=== PATIENT | male | born 1940 | race Caucasian/White ===

== ENCOUNTER 2019-12-12 10:15 | Outpatient (RCR) | payer MEDICARE, OTHER, SELFPAY ==
[2019-12-12 11:07] LABS: Anion Gap 15.2 (5-19); Blood Urea Nitrogen 11 mg/dL (8-23); Calcium 9.6 mg/Dl (8.8-10.2); Carbon Dioxide 27 mmol/L (22-29); Chloride 100 mmol/L (98-107); Digoxin 0.8 ng/mL (0.6-1.2); Glucose 85 mg/dL (74-106); Potassium 4.2 mmol/L (3.5-5.1); Sodium 138 mmol/L (136-145)
[2019-12-12 11:30] LABS: Basophils % 0.8 %; Eosinophils # 0.2 10^3/uL (0.0-0.8); Eosinophils % 3.8 %; Hematocrit 38.4 % (42.0-52.0); Hemoglobin 12.9 g/dL (11.7-16.6); Lymphocytes # 1.3 10^3/uL (0.8-4.8); Lymphocytes % 25.3 %; Mean Corpuscular HGB Conc 33.6 g/dL (30.0-36.0); Mean Corpuscular Hemoglobin 37.1 pg (28.0-34.0); Mean Corpuscular Volume 110.3 fL (80-94); Mean Platelet Volume 9.9 fL (7.4-10.4); Monocytes # 0.6 10^3/uL (0.2-0.9); Monocytes % 12.4 %; Neutrophils # 2.9 10^3/uL (1.8-7.7); Neutrophils % 57.5 %; Nucleated Red Blood Cells % 0 %; Platelet Count 271 10^3/cmm (130-400); Red Blood Count 3.48 10^6/uL (4.1-5.3); Red Cell Distribution Width 15.9 % (12.1-15.1)
== END 2019-12-22 23:59 | disposition home or self-care (01) ==
LOC: LAB 10:15
PROVIDERS: Family Provider Family Medicine; PCP Family Medicine; Visit Provider Dermatology
DX: Z01.89 Encounter for other specified special examinations (principal)
CPT/HCPCS: 80048; 80162; 85025

== ENCOUNTER 2021-12-09 13:18 | Outpatient (CLI) | payer MEDICARE, OTHER, SELFPAY ==
--- NOTE | 2021-12-09 13:30 | USCV_ITS ---
Divina Vijay Age: 81 Gender: M : 1940 Exam Date: 12/09/2021 13:55 Ordering Phys: Korin Robertson MD ([email or web address]) Technologist: [place] [facility] [place]: CCA DISEASE Risk Factors: Previous Vascular Surgery: Right Brachial BP: / Left Brachial BP: / Right Left Velocity (cm/s) Spectral Plaque Velocity (cm/s) Spectral Plaque Syst/Diast Broadening Syst/Diast Broadening 43.20/ 10.00 Prox CCA 63.50 / 15.90 53.00/ 11.00 Mid CCA 55.50 / 11.50 53.80/ 13.20 Distal CCA 72.30 / 13.20 76.70/ 11.50 Prox ICA 73.00 / 12.00 82.80/ 19.40 Mid ICA 65.80 / 17.90 88.10/ 27.30 Distal ICA 67.50 / 23.10 82.00 ECA 82.00 1.64 ICA/CCA 0.93 Antegrade Vertebral Antegrade 58.20/ 14.10 cm/s 41.90/ 9.40 cm/s Bi Subclavian Bi 147.5 0 FINDINGS Comparison: none available. Scattered irregular plaque in the common carotid arteries and bifurcations. No stenosis or occlusion. Antegrade vertebral arteries. CONCLUSIONS Bilateral ICA stenosis less than 50%. Dr. Nat Zacarias DO (Electronically Signed) Final Date: 09 December 2021 15:39 S
== END 2021-12-09 13:19 | disposition home or self-care (01) ==
LOC: RAD 13:21
PROVIDERS: PCP Family Medicine; Visit Provider Internal Medicine Cardiovascular Disease
DX: I65.23 Occlusion and stenosis of bilateral carotid arteries (principal)
CPT/HCPCS: 93880

== ENCOUNTER 2021-12-11 12:37 | Outpatient (CLI) | payer MEDICARE, OTHER, SELFPAY ==
--- NOTE | 2021-12-11 12:45 | USCV_ITS ---
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 Exam Location: [facility] [place] Indication: PAIN IN RIGHT LEG RIGHT LEFT Brachial 133.00 mmHg Brachial 140.00 mmHg Pressure (mmHg) Waveform Pressure (mmHg) Waveform 154.00 DPA 1.10 Ankle/Brachial Index 115.00 Pre-Exercise Toe Pressure 155.00 0.82 Pre-Exercise Toe/Brachial Index 1.11 FINDINGS RT PT >220 Normal resting JAVED on the right side Noncompressible vessels on the left side Normal resting TBI on the right side Supranormal resting TBI on the left side CONCLUSIONS Features suggestive of extensive arterial sclerosis Possibly no significant arterial obstruction based on the above findings Dr Sahil Choe MD [facility] (Electronically Signed) Final Date: 11 December 2021 19:26 S
== END 2021-12-11 12:38 | disposition home or self-care (01) ==
LOC: RAD 12:41
PROVIDERS: PCP Family Medicine; Visit Provider Internal Medicine Cardiovascular Disease
DX: M79.604 Pain in right leg (principal); M79.605 Pain in left leg
CPT/HCPCS: 93923

== ENCOUNTER 2022-02-06 19:16 | Emergency (ER) | payer MEDICARE, OTHER, SELFPAY ==
[2022-02-06 19:17] VITALS: BP 135/79; PULSE 77; RESP 18; TEMP 37.2; O2SAT 98
--- NOTE | 2022-02-06 19:27 | XRR_ITS ---
PROCEDURE INFORMATION: Exam: XR Chest Exam date and time: 02/06/2022 6:34 PM Age: 81 years old Clinical indication: Injury or trauma; Fall; Swelling (edema); Prior surgery; Surgery date: 6+ months TECHNIQUE: Imaging protocol: XR of the chest. Views: 1 view. COMPARISON: CR Chest 1 [place] [id number] 06/11/2019 2:35 PM FINDINGS: Tubes, catheters and devices: Stable surgical changes throughout the mediastinum, including a cardiac pacer system. The uppermost sternal wire appears fractured. Lungs: Hyperinflation with interstitial prominence consistent with COPD. Atelectasis at the lung bases. Pleural spaces: Mild blunting of the costophrenic angles may be scarring. No pneumothoraces. Heart/Mediastinum: There is stable cardiomegaly. The aorta is tortuous and mildly calcified. Bones/joints: The right humeral head is high-riding in the glenoid and contacts the undersurface of the acromion consistent a rotator cuff tear. There is a probable left AC separation versus resection of the distal. XR/XR chest 1V portable [id number] IMPRESSION: No acute cardiopulmonary abnormality. Possible left AC separation resection of the distal clavicle. Right rotator cuff tear.
--- NOTE | 2022-02-06 19:27 | CTR_ITS ---
PROCEDURE INFORMATION: Exam: CT Head Without Contrast Exam date and time: 02/06/2022 7:48 PM Age: 81 years old Clinical indication: Injury or trauma; Blunt trauma (contusions or hematomas); Without loss of consciousness; Patient HX: C/O DICK after 3x falls today; Additional info: Fall TECHNIQUE: Imaging protocol: Computed tomography of the head without contrast. Radiation optimization: All CT scans at this facility use at least one of these dose optimization techniques: automated exposure control; mA and/or kV adjustment per patient size (includes targeted exams where dose is matched to clinical indication); or iterative reconstruction. COMPARISON: CT head wo con* [id number] 06/11/2019 2:44 PM RADIATION DOSE METRICS: Total DLP (mGy-cm): 1035.83 FINDINGS: Brain: Age appropriate atrophy and small vessel ischemic change. No evidence of intracranial hemorrhage, mass effect, midline shift or extra-axial fluid collections. Midline structures are normal. Patel-white matter differentiation is normal. Cerebral ventricles: No ventriculomegaly. Paranasal sinuses: Mucosal thickening in the ethmoid and maxillary sinuses. Mastoid air cells: Visualized mastoid air cells are well aerated. Orbital cavities: The patient has had bilateral lens replacement surgery. Vasculature: Carotid and vertebral artery atherosclerotic calcification. Bones/joints: Unremarkable. No acute fracture. Soft tissues: Unremarkable. CT/CT head wo con* [id number] IMPRESSION: No acute intracranial injury.
--- NOTE | 2022-02-06 19:28 | ECG_ITS ---
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 Measurements Intervals [place] Rate: 71 P: -21 PA: 197 QRS: -87 QRSD: 190 T: 89 QT: 450 QTc: 491 Interpretive Statements ELECTRONIC ATRIAL PACEMAKER ELECTRONIC VENTRICULAR PACEMAKER Compared to ECG 06/11/2019 14:56:09 Atrial fibrillation no longer present Intraventricular conduction delay no longer present Electronically Signed On 02-06-2022 22:46:44 CDT by Dell Beck M.D. [id number]
--- NOTE | 2022-02-06 19:39 | ED_ITS ---
HPI - General Adult General: Chief complaint: General Medical Stated complaint: FLU/WEAKNESS/UNABLE TO STAND Time Seen by Provider: 02/06/22 19:17 History of Present Illness: Patient is an 81-year-old male with history of atrial fibrillation on apixaban, CAD s/p CABG, hypertension who presents emergency room after 3 episodes of fall. Yesterday patient was diagnosed with the flu. After he discharged home yesterday, patient says that he has had difficulty getting out of bed. Patient says that he is feeling weak and has fallen 3 times at shelter. Patient denies any chest pain, short of breath, palpitation or lightheadedness. Patient points to his head complaining of head ache. Patient also reports generalized body aches. Patient reports that he has had an ongoing cough for the last 2 weeks. Denies any active abdominal complaints, nausea/vomiting, decreased p.o. intake, diarrhea, melena medic easier. Patient has no urinary complaints. No other focal complaints at this time. Onset: 1 day Duration:ongoing Location: shelter Severity:moderate Associated symptoms: Deny chest pain, dyspnea, nausea, rash, palpitations or v omiting Review of Systems Const: Reports: other (+generalized weakness); Denies: fever(s) or chills Eyes: Denies: change in vision ENMT: Reports: other (+headache); Denies: mouth pain Card: Denies: chest pain or palpitations Resp: Denies: dyspnea or non-productive cough GI: Denies: abdominal pain, nausea, vomiting or diarrhea : Denies: dysuria Musc: Denies: extremity pain Skin/Breast: Denies: rash or new lesions Neuro: Denies: weakness in extremities Psych: Reports: other (Normal mood) Alan/Lymph: Denies: easy bruising PFS ED PFSH: Medical History (Updated 02/06/22 @ 21:05 by Abdias Ospina MD) Atrial fibrillation Benign essential tremor CAD (coronary artery disease) HTN (hypertension) Parkinson disease Presence of cardiac pacemaker Surgical History S/P CABG (coronary artery bypass graft) Family History Denies family history of Diabetes Cancer Stroke Social History Smoking and tobacco status: never smoked Alcohol intake: never Physical Exam Const: COMMON NORMALS: alert HENMT: COMMON NORMALS: atraumatic HEAD & SCALP: atraumatic MOUTH: moist mucous membranes not abnormal Eye: COMMON NORMALS: EOMs intact bilaterally and conjunctivae normal C ONJUNCTIVA: Yes conjunctivae normal Neck/C-Spine: COMMON NORMALS: full ROM and supple OTHER: no nuchal rigidity or meningismus Resp: COMMON NORMALS: normal respiratory effort and clear to auscultation bilaterally AUSCULTATION: clear to auscultation bilaterally Cardio: COMMON NORMALS: regular rate RATE: regular rate GI: COMMON NORMALS: Soft to palpation and non-tender PALPATION: Yes Soft to palpation Extremity: COMMON NORMALS: full ROM Neuro: SENSORIUM/ORIENTATION: Yes alert MOTOR EXAM: No Abnormal motor strength present and Other motor observations present (no focal motor deficits) Psych: COMMON NORMALS: speech normal SPEECH: Yes normal speech MOOD & AFFECT: Yes euthymic mood Course Vital Signs: Vital signs: Vital Signs Temperature 99.0 F 02/06/22 19:17 Pulse Rate 74 02/06/22 21:11 Respiratory Rate 20 H 02/06/22 21:11 Blood Pressure 138/78 02/06/22 21:11 Pulse Oximetry 93 02/06/22 21:11 [facility] - General Adult Medical Decision Making Patient is an 81-year-old male presenting to the emergency room with concerns for increased weakness and fall x3 episode. On exam, patient has no focal signs of trauma or bruising. Lungs appear to be clear bilaterally. CT head negative for any acute finding. X-ray is negative for any signs of focal consolidation. Patient has no white count. Afebrile today. BNP is noted to be 5K, however given the setting of CABG, it is unclear what patient's baseline is. Patient has no signs of lower extremity swelling, increased dypnsee/oxygen requirement, and x-ray chest not showing signs of CHF exacerbation. I have offered patient admission given the fact that patient is at risk for recurrent fall, generalized weawkness, the fact that he is on anticoagulation. I discussed case with patient's son Ken who also agrees with decision for admission. However patient reiterates desire to go back to shelter. Patient is AAOx3, GCS 15, with full capability for understanding everything discussed today. Patient still still elects to go home back to shelter at this time. Patient verbalized understanding of the risks which involve recurrent fall and possible brain bleed/other significant trauma. Patient still elects to go home at this time. Given new BNP elevation unknown baseline, patient's increased risk for falling and worsening weakness, we recommend inpatient hospitalization. However, at 9:35 PM, patient declined the admission. Patient elects to go home with close follow-up. Patient has nigtzk-byu-bonbo care at the shelter and would like to get IV hydration at the shelter. Given the fact the patient is on apixaban, I have instructed him to stop taking his Eliquis for 2 days until he has regained strength to be able to walk to decrease his risks of brain bleed or other injuries. I have given patient strict return precaution for any signs of strokelike symptoms since he will be off of the apixaban for 2 days until he regains his strength. Patient verbalized understanding of everything discussed today. I have attempted to reach the shelter to communicate these discussions. However we were unable to reach shelter after multiple attempts. Disposition: discharge. Lab Data : 02/06/22 19:36 02/06/22 19:36 Radiology Impressions Chest X-Ray 02/06/22 19: IMPRESSION: No acute cardiopulmonary abnormality. Possible left AC separation resection of the distal clavicle. Right rotator cuff tear. Head CT 02/06/22 19:27 IMPRESSION: No acute intracranial injury. Laboratory Results WBC 8.6 10^3/uL (4.0-10.0) 02/06/22 19:36 RBC 3.57 10^6/uL (4.1-5.3) L 02/06/22 19:36 Hgb 12.0 g/dL (11.7-16.6) 02/06/22 19:36 Hct 37.0 % (42.0-52.0) L 02/06/22 19:36 MCV 103.6 fl (80-94) H 02/06/22 19:36 MCH 33.6 pg (28.0-34.0) 02/06/22 19:36 MCHC 32.4 g/dL (30.0-36.0) 02/06/22 19:36 RDW 14.6 % (12.1-15.1) 02/06/22 19:36 Plt Count 202 10^3/cmm (130-400) 02/06/22 19:36 MPV 9.9 fL (7.4-10.4) 02/06/22 19:36 Neut % (Auto) 83.3 % 02/06/22 19:36 Lymph % (Auto) 5.6 % 02/06/22 19:36 Bond % (Auto) 9.2 % 02/06/22 19:36 Eos % (Auto) 1.1 % 02/06/22 19:36 Baso % (Auto) 0.4 % 02/06/22 19:36 Neut # (Auto) 7.15 10^3/uL (1.8-7.7) 02/06/22 19:36 Lymph # (Auto) 0.5 10^3/uL (0.8-4.8) L 02/06/22 19:36 Bond # (Auto) 0.8 10^3/uL (0.2-0.9) 02/06/22 19:36 Eos # (Auto) 0.1 10^3/uL (0.0-0.8) 02/06/22 19:36 Baso # (Auto) 0.0 10^3/uL (0.0-0.1) 02/06/22 19:36 Nucleated RBC % (auto) 0 % 02/06/22 19:36 Nucleated RBCs # 0.0 /100WBC 02/06/22 19:36 Sodium 135 mmol/L (136-145) L 02/06/22 19:36 Potassium 3.9 mmol/L (3.5-5.1) 02/06/22 19:36 Chloride 98 mmol/L (98-107) 02/06/22 19:36 Carbon Dioxide 25 mmol/L (22-29) 02/06/22 19:36 Anion Gap 15.9 (5-19) 02/06/22 19:36 BUN 13 mg/dL (8-23) 02/06/22 19:36 Creatinine 0.7 mg/dL (0.7-1.2) 02/06/22 19:36 GFR Calculation Not Reportable 02/06/22 19:36 Glucose 127 mg/dL (65-115) H 02/06/22 19:36 Calculated Osmolality 282 mOsm/kg (285-295) L 02/06/22 19:36 Calcium 9.0 mg/dL (8.5-10.5) 02/06/22 19:36 Total Bilirubin 0.9 mg/dL (0.15-1.2) 02/06/22 19:36 AST 9 U/L (0-40) 02/06/22 19:36 ALT < 5 U/L (0-41) 02/06/22 19:36 Alkaline Phosphatase 86 IU/L (40-130) 02/06/22 19:36 Troponin T Baseline 31 ng/L (0-15) H 02/06/22 19:36 Troponin T 120 Minute 31.11 ng/L (0-15) H 02/06/22 21:40 Delta Troponin T 0.11 ABS# (0-10) 02/06/22 21:40 NT-Pro-B Natriuret Pep 4702 pg/mL (0-450) H 02/06/22 19:36 Total Protein 6.7 g/dL (6.6-8.7) 02/06/22 19:36 Albumin 4.5 g/dL (3.5-5.2) 02/06/22 19:36 Globulin 2.2 g/dL (1.3-4.6) 02/06/22 19:36 Lipase 8 U/L (13-60) L 02/06/22 19:36 Imaging Data Other Imaging: Radiologist's impression: [address] [address] [address] Scan Report Signed Patient: Vijay Murcia Unit #: [id number] : 1940 Age/Sex: 81 / M ADM Date: 02/06/22 Loc: ER Room/Bed: Attending Dr: Ordering Provider/Ordering MD: Abdias Ospina MD Date of Service: 02/06/22 Procedure(s): CT head wo con* [id number] Accession Number(s): [id number] Report Number: [id number] PROCEDURE INFORMATION: Exam: CT Head Without Contrast Exam date and time: 02/06/2022 7:48 PM Age: 81 years old Clinical indication: Injury or trauma; Blunt trauma (contusions or hematomas); Without loss of consciousness; Patient HX: C/O DICK after 3x falls today; Additional info: Fall TECHNIQUE: Imaging protocol: Computed tomography of the head without contrast. Radiation optimization: All CT scans at this facility use at least one of these dose optimization techniques: automated exposure control; mA and/or kV adjustment per patient size (includes targeted exams where dose is matched to clinical indication); or iterative reconstruction. COMPARISON: CT head wo con* [id number] 06/11/2019 2:44 PM RADIATION DOSE METRICS: Total DLP (mGy-cm): 1035.83 FINDINGS: Brain: Age appropriate atrophy and small vessel ischemic change. No evidence of intracranial hemorrhage, mass effect, midline shift or extra-axial fluid collections. Midline structures are normal. Patel-white matter differentiation is normal. Cerebral ventricles: No ventriculomegaly. Paranasal sinuses: Mucosal thickening in the ethmoid and maxillary sinuses. Mastoid air cells: Visualized mastoid air cells are well aerated. Orbital cavities: The patient has had bilateral lens replacement surgery. Vasculature: Carotid and vertebral artery atherosclerotic calcification. Bones/joints: Unremarkable. No acute fracture. Soft tissues: Unremarkable. CT/CT head wo con* [id number] IMPRESSION: No acute intracranial injury. ? Dictated By: Mrak Brown MD Signed By: Mark Brown MD Signed Date/Time: 02/06/222004 DD/ 47 Discharge Plan Discharge Patient Disposition: Home Clinical Impression: Fall, Generalized weakness Condition: Stable Prescriptions: New acetaminophen 500 mg tablet 500 mg PO Q6H PRN (Reason: pain) 5 Days Qty: 20 0RF No Action senna 8.6 mg capsule 8.6 mg PO BID PRN0RF pantoprazole 40 mg tablet,delayed release (DR/EC) 40 mg PO DAILY 0RF tamsulosin 0.4 mg capsule 0.4 mg PO DAILY 0RF carbidopa-levodopa 25-100 mg tablet 1 tab PO TID 0RF duloxetine 60 mg capsule,delayed release(DR/EC) 60 mg PO DAILY 0RF oxycodone-acetaminophen 10-325 mg tablet 1 tab PO Q8H PRN0RF diltiazem HCl 180 mg capsule,extended release 24hr 180 mg PO DAILY 0RF Eliquis 2.5 mg tablet 2.5 mg PO BID 0RF gabapentin 600 mg tablet 600 mg PO BID 0RF metoprolol tartrate 25 mg tablet 25 mg PO BID 0RF digoxin 125 mcg (0.125 mg) tablet 125 mcg PO DAILY 0RF donepezil 10 mg tablet 10 mg PO DAILY 0RF atorvastatin 20 mg tablet 20 mg PO DAILY 0RF trazodone 100 mg tablet 100 mg PO DAILY 0RF primidone 50 mg tablet 200 mg PO BID 0RF melatonin 1 mg tablet 1 mg PO DAILY 0RF memantine 10 mg tablet 10 mg PO BID 0RF Discharge Orders: Discharge ED (Routine); Ordered 02/06/22 Ordered By: Abdias Ospina Referrals: Vi Murphy MD [Primary Care Provider] - Discharge Diet: Advance as tolerated Discharge Activity: Increase activity as tolerated Patient Instructions: Fall Prevention (ED), Opioid Safety Activity Restrictions/Additional Instructions: Come back to the emergency room he had a fever, decreased p.o. intake, inability tolerate p.o., or any new concerning complaints Coding Level of Care Code ED Nurse Care Manager for Ct Sarkar Exam Comprehensive
[2022-02-06 19:57] LABS: Basophils % 0.4 %; Eosinophils # 0.1 10^3/uL (0.0-0.8); Eosinophils % 1.1 %; Lymphocytes # 0.5 10^3/uL (0.8-4.8); Lymphocytes % 5.6 %; Mean Corpuscular HGB Conc 32.4 g/dL (30.0-36.0); Mean Corpuscular Hemoglobin 33.6 pg (28.0-34.0); Mean Corpuscular Volume 103.6 fl (80-94); Mean Platelet Volume 9.9 fL (7.4-10.4); Monocytes # 0.8 10^3/uL (0.2-0.9); Monocytes % 9.2 %; Neutrophils # 7.15 10^3/uL (1.8-7.7); Neutrophils % 83.3 %; Nucleated Red Blood Cells % 0 %; Platelet Count 202 10^3/cmm (130-400); Red Blood Count 3.57 10^6/uL (4.1-5.3); Red Cell Distribution Width 14.6 % (12.1-15.1); White Blood Count 8.6 10^3/uL (4.0-10.0)
[2022-02-06 20:09] LABS: Troponin(5th) Baseline 31 ng/L (0-15)
[2022-02-06 20:19] LABS: Alanine Aminotransferase < 5 U/L (0-41); Albumin Level 4.5 g/dL (3.5-5.2); Alkaline Phosphatase 86 IU/L (40-130); Anion Gap 15.9 (5-19); Aspartate Amino Transferase 9 U/L (0-40); Blood Urea Nitrogen 13 mg/dL (8-23); Carbon Dioxide 25 mmol/L (22-29); Chloride 98 mmol/L (98-107); Globulin 2.2 g/dL (1.3-4.6); Glucose 127 mg/dL (65-115); Lipase 8 U/L (13-60); NT Pro B Type Natriuretic Pept 4702 pg/mL (0-450); Osmolality Calculated 282 mOsm/kg (285-295); Potassium 3.9 mmol/L (3.5-5.1); Sodium 135 mmol/L (136-145); Total Bilirubin 0.9 mg/dL (0.15-1.2); Total Protein 6.7 g/dL (6.6-8.7)
[2022-02-06] MEDS: sodium chloride 0.9% 500 ML IV (21:06)
[2022-02-06] MEDS: acetaminophen 500 mg Tablet PO (21:06)
[2022-02-06 21:11] VITALS: BP 138/78; PULSE 74; RESP 20; O2SAT 93
[2022-02-06 22:16] LABS: Troponin 5 2HR 31.11 ng/L (0-15)
[2022-02-06 22:19] LABS: Troponin 5 2HR Delta 0.11 ABS# (0-10)
[2022-02-06 23:37] VITALS: BP 131/72; PULSE 70; RESP 17; O2SAT 91
[2022-02-07 00:48] VITALS: BP 128/73; PULSE 71; RESP 16; O2SAT 97
== END 2022-02-07 00:50 | disposition home or self-care (01) ==
PROVIDERS: Emergency Provider Emergency Medicine; PCP Family Medicine
DX: R53.1 Weakness (principal); Z79.01 Long term (current) use of anticoagulants; I25.10 Atherosclerotic heart disease of native coronary artery without angina pectoris; I10 Essential (primary) hypertension; G20 Parkinson's disease; Z95.0 Presence of cardiac pacemaker; Z95.1 Presence of aortocoronary bypass graft; W19.XXXA Unspecified fall, initial encounter; Y92.129 Unspecified place in nursing home as the place of occurrence of the external cause
CPT/HCPCS: 70450; 71045; 80053; 83690; 83880; 84484; 85025; 93005; 96360; 99284; J7040

== ENCOUNTER → 2022-04-17 10:13 | Outpatient (BNVA) | payer MEDICARE, OTHER, SELFPAY | PROVIDERS: PCP Family Medicine; Visit Provider Internal Medicine Cardiovascular Disease | DX: Z45.010 Encounter for checking and testing of cardiac pacemaker pulse generator [battery] (principal) | CPT/HCPCS: 93280 ==

== ENCOUNTER → 2022-09-04 10:14 | Outpatient (BNVA) | payer MEDICARE, OTHER, SELFPAY | PROVIDERS: PCP Family Medicine; Visit Provider Internal Medicine Cardiovascular Disease | DX: I48.91 Unspecified atrial fibrillation (principal); Z79.01 Long term (current) use of anticoagulants; I10 Essential (primary) hypertension; I25.10 Atherosclerotic heart disease of native coronary artery without angina pectoris; Z95.1 Presence of aortocoronary bypass graft; Z95.0 Presence of cardiac pacemaker | CPT/HCPCS: 99214 ==

== ENCOUNTER 2022-09-30 17:24 | Emergency (ER) | payer MEDICARE, OTHER, SELFPAY ==
[2022-09-30 17:36] VITALS: BP 135/82; PULSE 72; RESP 17; TEMP 36.8; O2SAT 96
--- NOTE | 2022-09-30 17:36 | CTR_ITS ---
PROCEDURE INFORMATION: Exam: CT Cervical Spine Without Contrast Exam date and time: 09/30/2022 5:51 PM Age: 81 years old Clinical indication: Injury or trauma; Fall; Blunt trauma; Additional info: Fall on eliquis TECHNIQUE: Imaging protocol: Computed tomography of the cervical spine without contrast. Radiation optimization: All CT scans at this facility use at least one of these dose optimization techniques: automated exposure control; mA and/or kV adjustment per patient size (includes targeted exams where dose is matched to clinical indication); or iterative reconstruction. COMPARISON: CT cervical spin wo con* [id number] 11/20/2018 8:15 PM RADIATION DOSE METRICS: Total DLP (mGy-cm): 201 FINDINGS: Bones/joints: Wczz-xv-vrpcauzv degenerative changes are present in the cervical and upper thoracic spine. No acute fracture. Spinal alignment is normal. Lungs: Lung apices are normal. Soft tissues: Unremarkable. CT/CT cervical spin wo con* [id number] IMPRESSION: No cervical spine fracture.
--- NOTE | 2022-09-30 17:36 | CTR_ITS ---
PROCEDURE INFORMATION: Exam: CT Head Without Contrast Exam date and time: 09/30/2022 5:51 PM Age: 81 years old Clinical indication: Injury or trauma; Fall; Bleeding/hemorrhage and blunt trauma (contusions or hematomas); Without loss of consciousness; Additional info: Fall on eliquis TECHNIQUE: Imaging protocol: Computed tomography of the head without contrast. Radiation optimization: All CT scans at this facility use at least one of these dose optimization techniques: automated exposure control; mA and/or kV adjustment per patient size (includes targeted exams where dose is matched to clinical indication); or iterative reconstruction. COMPARISON: CT head wo con* [id number] 02/06/2022 7:48 PM RADIATION DOSE METRICS: Total DLP (mGy-cm): 1213.69 FINDINGS: Brain: Mild atrophy and mild white matter chronic microvascular changes are noted. No hemorrhage or evidence of acute infarction. Cerebral ventricles: No ventriculomegaly. Paranasal sinuses: Visualized sinuses are unremarkable. No fluid levels. Mastoid air cells: Visualized mastoid air cells are well aerated. Bones/joints: Unremarkable. No acute fracture. Soft tissues: Mild soft tissue swelling and a tiny laceration are present in the left parietal scalp. CT/CT head wo con* [id number] IMPRESSION: No acute intracranial abnormality.
--- NOTE | 2022-09-30 17:57 | W.ED.SKABFB ---
HPI - Skin/Abscess/Foreign Bdy General: Chief complaint: Skin/Abscess/Foreign Body Stated complaint: Fall, Head Laceration Time Seen by Provider: 09/30/22 17:57 History of Present Illness: 81-year-old gentleman on Eliquis presenting to the emergency department due to fall with head injury. He reports being at his baseline health and was walking and turned around attempting to sit backwards in the chair when he fell missing the chair. Immediately had pain in his head though denies loss of consciousness. No preceding symptoms. Currently has pain in his back and his head. Mild to moderate intensity. No other specific changes in health, exacerbating, or alleviating factors identified. Onset (ago): minute(s) Tetanus up to date: yes Severity: moderate Quality: aching and sharp Exacerbating factors: palpation and movement Associated symptoms: Reports no associated symptoms Review of Systems General: Reports: 10 or more systems reviewed and unremarkable except in HPI and below PFSH ED PFSH: Medical History Atrial fibrillation Benign essential tremor CAD (coronary artery disease) HTN (hypertension) Parkinson disease Presence of cardiac pacemaker Surgical History S/P CABG (coronary artery bypass graft) Family History Denies family history of Diabetes Cancer Stroke Social History Smoking and tobacco status: never smoked Alcohol intake: never Physical Exam Const: COMMON NORMALS: alert GENERAL APPEARANCE: cooperative and well developed HENMT: COMMON NORMALS: normocephalic HEAD & SCALP: normocephalic THROAT: posterior oropharynx normal OTHER: Skin laceration with dressing in place. No holt signs or raccoon eyes. No hemotympanum. No otorrhea or rhinorrhea. Jaw alignment normal. Dentition baseline. No obvious bony step-offs. No septal hematoma. No evidence of ocular entrapment. Eye: COMMON NORMALS: conjunctivae normal CONJUNCTIVA: Yes conjunctivae normal SCLERA: sclerae normal Neck/C-Spine: COMMON NORMALS: supple GENERAL: Yes trachea midline Resp: COMMON NORMALS: clear to auscultation bilaterally EFFORT & INSPECTION: Yes able to speak in complete sentences AUSCULTATION: clear to auscultation bilaterally Cardio: COMMON NORMALS: regular rate and regular rhythm RATE: regular rate RHYTHM: regular rhythm GI: COMMON NORMALS: Soft to palpation PALPATION: Yes Soft to palpation, Yes Tenderness to palpation present (GI), No Guarding due to palpation present (GI) and No Rigid due to palpation Extremity: GENERAL: Yes normal exam except as noted and No edema Neuro: COMMON NORMALS: moves all extremities SENSORIUM/ORIENTATION: Yes alert and No Orientation impaired Psych: COMMON NORMALS: mental status grossly normal and Normal thought process present THOUGHT PROCESS: Normal thought process present Procedures Laceration Laceration 1: Site: scalp Side (If applicable): left Size (cm): 6 Description: irregular Depth: simple, single layer Local Anesthetic: lidocaine 1% and with epi Amount of anesthesia used (mL): 3 Pre-repair: wound explored, irrigated extensively and deep structures intact Skin layer closed with: other (carlos) Number of sutures: 8 Course Vital Signs: Vital signs: Vital Signs Temperature 98.2 F 09/30/22 17:36 Pulse Rate 72 09/30/22 17:36 Respiratory Rate 16 09/30/22 19:42 Blood Pressure 135/82 09/30/22 17:36 Pulse Oximetry 94 09/30/22 19:42 Oxygen Delivery Me thod 09/30/22 17:36 MDM - Skin/Abscess/Foreign Bdy Medicial Decision Making 81-year-old gentleman presenting due to fall with head injury. Head to toe exam performed. Given clinical history indication for labs. CT head and cervical spine negative for acute traumatic injury. CT thoracic spine without fracture. CT abdomen pelvis without acute traumatic pathology. Laceration repaired as above and patient tolerated procedure well. The results of ED evaluation were discussed with the patient including prescriptions and/or symptomatic cares (if applicable) including appropriate and responsible use, followup plan, and return precautions. The patient verbalized understanding and felt safe for discharge. Medical Records I reviewed the patient's medical records. Lab Data I reviewed the patient's lab results. Radiology Impressions Cervical Spine CT 09/30/22 17:36 IMPRESSION: No cervical spine fracture. Head CT 09/30/22 17:36 IMPRESSION: No acute intracranial abnormality. Abdomen/Pelvis CT 09/30/22 18:07 IMPRESSION: 1. No acute traumatic injury in the seen in the abdomen or pelvis. 2. Moderate to severe lumbar spine spondylosis. No acute fracture is seen. 3. Diverticulosis coli. 4. Right adrenal adenoma. 5. Atherosclerosis and mild ectasia of the infrarenal abdominal aorta. COMMENTS: For patients with an IVC filter, recommend assessment for a management plan for the patient's IVC filter. If there is no established management plan, recommend referral to an interventional clinician on a nonemergent basis for evaluation. Thoracic Spine CT 09/30/22 18:07 IMPRESSION: No thoracic spine fracture is seen. Discharge Plan Discharge Patient Disposition: Home Clinical Impression: Fall, Laceration of scalp Condition: Stable Prescriptions: No Action senna 8.6 mg capsule 8.6 mg PO BID PRN pantoprazole 40 mg tablet,delayed release (DR/EC) 40 mg PO DAILY tamsulosin 0.4 mg capsule 0.4 mg PO DAILY carbidopa-levodopa 25-100 mg tablet 1 tab PO TID duloxetine 60 mg capsule,delayed release(DR/EC) 60 mg PO DAILY oxycodone-acetaminophen 10-325 mg tablet 1 tab PO Q8H PRN diltiazem HCl 180 mg capsule,extended release 24hr 180 mg PO DAILY Eliquis 2.5 mg tablet 2.5 mg PO BID gabapentin 600 mg tablet 600 mg PO BID metoprolol tartrate 25 mg tablet 25 mg PO BID digoxin 125 mcg (0.125 mg) tablet 125 mcg PO DAILY donepezil 10 mg tablet 10 mg PO DAILY atorvastatin 20 mg tablet 20 mg PO DAILY melatonin 1 mg tablet 1 mg PO DAILY primidone 50 mg tablet 50 mg PO BID trazodone 100 mg tablet 50 mg PO DAILY memantine 10 mg tablet 10 mg PO BID alprazolam 0.25 mg tablet 0.25 mg PO TID PRN cetirizine [Allergy Relief (cetirizine)] 5 mg tablet 5 mg PO DAILY PRN cyclobenzaprine 10 mg tablet 10 mg PO BID PRN fluticasone propionate [Allergy Relief (fluticasone)] 50 mcg/actuation spray,suspension 1 spray intranasal DAILY Rx Instructions: administer into each nostril acetaminophen 325 mg tablet 325 mg PO QID PRN lactulose 10 gram/15 mL solution 30 g PO DAILY loperamide 2 mg capsule 2 mg PO Q6H PRN [place] Nasal 0.65 % aerosol,spray 1 spray intranasal BID PRN tetrahydrozoline [Visine] 0.05 % drops 1 drp ophthalmic (eye) TID PRN mecobalamin (vitamin B12) 1,000 mcg tablet,chewable 1,000 mcg PO DAILY Discharge Orders: Discharge ED (Routine); Ordered 09/30/22 Ordered By: Jude Olivarez Referrals: Vi Murphy MD [Primary Care Provider] - Discharge Diet: Usual diet Discharge Activity: Increase activity as tolerated Patient Instructions: Scalp Laceration, Staple Care (ED), Pain Management Activity Restrictions/Additional Instructions: Thank you for visiting the emergency department. You were seen and evaluated for fall with scalp laceration. This was repaired with 8 carlos that need to be removed in 10 days. Do not get the area wet for 24 hours then you may get it wet however be gentle and do not brush and do not soak or submerge the area. Watch for signs of infection. Please follow-up with a primary care provider. Return to the emergency department for uncontrolled pain or anything else that you are concerned about a feel needs emergency department evaluation. Coding Level of Care Code ED Online Community Manager for [facility]
--- NOTE | 2022-09-30 18:07 | CTR_ITS ---
PROCEDURE INFORMATION: Exam: CT Abdomen And Pelvis Without Contrast Exam date and time: 09/30/2022 6:19 PM Age: 81 years old Clinical indication: Pain and injury or trauma; Fall; Blunt; Upper; Abdominal pain; Additional info: Fall, low back and abd pain TECHNIQUE: Imaging protocol: Computed tomography of the abdomen and pelvis without contrast. Radiation optimization: All CT scans at this facility use at least one of these dose optimization techniques: automated exposure control; mA and/or kV adjustment per patient size (includes targeted exams where dose is matched to clinical indication); or iterative reconstruction. COMPARISON: CT abdomen pelvis wo con [id number] 12/12/2017 4:40 PM RADIATION DOSE METRICS: Total DLP (mGy-cm): 730.64 FINDINGS: Liver: Normal. No mass. Gallbladder and bile ducts: The gallbladder has been removed. No biliary ductal dilatation. Pancreas: Normal. No ductal dilation. Spleen: Normal. No splenomegaly. Adrenal glands: A 3.4 cm right adrenal adenoma is present. The left adrenal gland appears normal. Kidneys and ureters: Normal. No hydronephrosis. Stomach and bowel: No intestinal obstruction. Diverticulosis coli is seen, without evidence of diverticulitis. Appendix: No evidence of appendicitis. Intraperitoneal space: Unremarkable. No free air. No significant fluid collection. Vasculature: Atherosclerotic calcific changes are again seen in the abdominal aorta and iliac arteries. Mild ectasia of the infrarenal abdominal aorta is noted measuring up to 2.6 cm. An IVC filter is present. Lymph nodes: Unremarkable. No enlarged lymph nodes. Urinary bladder: Unremarkable as visualized. Reproductive: Unremarkable as visualized. Bones/joints: Moderate to severe degenerative changes are present in the visualized spine. Dextroscoliosis of the thoracolumbar spine is appreciated. No acute fracture is seen. Soft tissues: Unremarkable. CT/CT abdomen pelvis wo con [id number] IMPRESSION: 1. No acute traumatic injury in the seen in the abdomen or pelvis. 2. Moderate to severe lumbar spine spondylosis. No acute fracture is seen. 3. Diverticulosis coli. 4. Right adrenal adenoma. 5. Atherosclerosis and mild ectasia of the infrarenal abdominal aorta. COMMENTS: For patients with an IVC filter, recommend assessment for a management plan for the patient's IVC filter. If there is no established management plan, recommend referral to an interventional clinician on a nonemergent basis for evaluation.
--- NOTE | 2022-09-30 18:07 | CTR_ITS ---
PROCEDURE INFORMATION: Exam: CT Thoracic Spine Without Contrast Exam date and time: 09/30/2022 6:25 PM Age: 81 years old Clinical indication: Injury or trauma; Fall; Blunt trauma (contusions or hematomas); Additional info: Fall, back pain TECHNIQUE: Imaging protocol: Computed tomography of the thoracic spine without contrast. Radiation optimization: All CT scans at this facility use at least one of these dose optimization techniques: automated exposure control; mA and/or kV adjustment per patient size (includes targeted exams where dose is matched to clinical indication); or iterative reconstruction. COMPARISON: CT abdomen pelvis wo con [id number] 09/30/2022 6:19 PM RADIATION DOSE METRICS: Total DLP (mGy-cm): 818.71 FINDINGS: The inferior aspect of T12 is excluded from the field of view. [id number] degenerative changes are observed in the thoracic spine. No acute fracture is visualized. Thoracic kyphosis is maintained. CT/CT thoracic spin wo con* [id number] IMPRESSION: No thoracic spine fracture is seen.
[2022-09-30 19:42] VITALS: RESP 16; O2SAT 94
[2022-09-30] MEDS: morphine 4 mg/mL SDV 1 mL IM (19:42)
[2022-09-30] MEDS: tetanus-dipt-pertussis 0.5 mL SDV IM (19:43)
== END 2022-09-30 21:37 | disposition home or self-care (01) ==
PROVIDERS: Emergency Provider Emergency Medicine; PCP Family Medicine
DX: S01.01XA Laceration without foreign body of scalp, initial encounter (principal); Z79.01 Long term (current) use of anticoagulants; I25.10 Atherosclerotic heart disease of native coronary artery without angina pectoris; I10 Essential (primary) hypertension; G20 Parkinson's disease; Z95.0 Presence of cardiac pacemaker; Z95.1 Presence of aortocoronary bypass graft; W18.39XA Other fall on same level, initial encounter; Z23 Encounter for immunization
CPT/HCPCS: 12002; 70450; 72125; 72128; 74176; 90471; 90715; 96372; 99285; J2270

== ENCOUNTER 2022-11-26 13:30 | Emergency (ER) | payer MEDICARE, OTHER, SELFPAY ==
--- NOTE | 2022-11-26 13:33 | XR_ITS ---
WS: [id number] Portable AP upright chest, 11/26/2022 Clinical Data: sob Comparison: Portable chest, 02/06/2022 Findings: No nodules or masses are seen. There is a patchy opacity overlying the surface the left will phragm which may represent atelectasis, effusion and or pneumonia. The right lung is clear. The heart is enlarged. The pulmonary vascularity is not increased. No pneumothorax is seen. The aortic arch an d descending thoracic aorta show calcification and tortuosity. There are midline sternotomy sutures. There is a 2-lead pacemaker unchanged. Monitor leads are on the chest wall. 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 XR/XR chest 1V portable [id number] Impression: 1. Patchy opacity overlying surface of left diaphragm which could represent ate lectasis, effusion and/or pneumonia. 2. Cardiomegaly and atherosclerosis.
--- NOTE | 2022-11-26 13:41 | W.ED.SOB ---
HPI - SOB/Dyspnea General: Chief Complaint: Shortness of Breath/Dyspnea Stated Complaint: SOB Time Seen by Provider: 11/26/22 13:32 Source: patient and EMS Mode of arrival: EMS Limitations: no limitations History of Present Illness: HPI Narrative: 82-year-old male who is here from the halfway he has had a cough been nonproductive over the last 2 days has had some mild shortness of breath he wears oxygen as needed at the halfway he is currently on 2 L and is 93% he denies any pain he has been afebrile denies any worsening improving factors. Associated symptoms: Deny abdominal pain, chest pain, fever(s), nausea or vomiting Review of Systems Const: Denies: fever(s), chills, body aches or change in appetite Eyes: Denies: blurry vision or eye discomfort ENMT: Denies: throat pain or dental pain Card: Denies: chest pain Resp: Reports: dyspnea and non-productive cough GI: Denies: abdominal pain, nausea, vomiting or diarrhea : Denies: dysuria Musc: Denies: neck pain or back pain Skin/Breast: Denies: rash Neuro: Denies: headache(s) Psych: Denies: depression Alan/Lymph: Denies: easy bruising All/Imm: Denies: urticaria PFSH ED PFSH: Medical History (Updated 11/26/22 @ 15:26 by Zoila Gordon MD) Atrial fibrillation Benign essential tremor CAD (coronary artery disease) HTN (hypertension) Parkinson disease Presence of cardiac pacemaker Surgical History S/P CABG (coronary artery bypass graft) Family History Denies family history of Diabetes Cancer Stroke Social History Smoking and tobacco status: never smoked Alcohol intake: never Physical Exam Const: COMMON NORMALS: no acute distress, patient oriented x3 and healthy appearing HENMT: COMMON NORMALS: normocephalic and atraumatic HEAD & SCALP: normocephalic and atraumatic Eye: COMMON NORMALS: Equal, round and reactive pupils present and EOMs intact bilaterally PUPIL: Yes Equal, round and reactive pupils present Neck/C-Spine: COMMON NORMALS: full ROM and supple Chest: COMMONS NORMALS: normal inspection of the chest and normal palpation of entire chest wall Resp: COMMON NORMALS: normal respiratory effort, No retractions, No use of accessory muscles and clear to auscultation bilaterally AUSCULTATION: clear to auscultation bilaterally Cardio: COMMON NORMALS: regular rate, regular rhythm and No murmurs present (Cardio) RATE: regular rate RHYTHM: regular rhythm GI: COMMON NORMALS: Normal to inspection, nondistended, normoactive bowel sounds present, Soft to palpation, non-tender and no masses PALPATION: Yes Soft to palpation Extremity: COMMON NORMALS: normal to inspection and full ROM Neuro: COMMON NORMALS: patient oriented x3, moves all extremities and no focal motor deficits Psych: COMMON NORMALS: mental status grossly normal, Normal thought process present and cooperative THOUGHT PROCESS: Normal thought process present Skin: COMMON NORMALS: no rashes or lesions noted and no wounds GENERAL SKIN EXAM: no rashes or lesions noted Course Vital Signs: Vital signs: Vital Signs Temperature 97.8 F 11/26/22 13:44 Pulse Rate 70 11/26/22 17:29 Respiratory Rate 18 11/26/22 17:29 Blood Pressure 117/67 11/26/22 17:29 Pulse Oximetry 91 11/26/22 17:29 Oxygen Delivery Me thod 11/26/22 13:44 MDM - SOB/Dyspnea Medical Decision Making Patient presents with cough congestion he does have a mild pneumonia his blood count is normal not septic we will place him on doxycycline and discharged back to the halfway he is return if worsening. Lab Data 11/26/22 14:03 11/26/22 14:03 Labs/Radiology: Radiology Impressions Chest X-Ray 11/26/22 13:33 Impression: 1. Patchy opacity overlying surface of left diaphragm which could represent atelectasis, effusion and/or pneumonia. 2. Cardiomegaly and atherosclerosis. Laboratory Results WBC 6.1 10^3/uL (4.0-10.0) 11/26/22 14:03 RBC 3.33 10^6/uL (4.1-5.3) L 11/26/22 14:03 Hgb 10.9 g/dL (11.7-16.6) L 11/26/22 14:03 Hct 34.9 % (42.0-52.0) L 11/26/22 14:03 MCV 104.8 fl (80-94) H 11/26/22 14:03 MCH 32.7 pg (28.0-34.0) 11/26/22 14:03 MCHC 31.2 g/dL (30.0-36.0) 11/26/22 14:03 RDW 14.6 % (12.1-15.1) 11/26/22 14:03 Plt Count 194 10^3/cmm (130-400) 11/26/22 14:03 MPV 9.7 fL (7.4-10.4) 11/26/22 14:03 Neut % (Auto) 75.6 % 11/26/22 14:03 Lymph % (Auto) 9.5 % 11/26/22 14:03 [place] % (Auto) 12.4 % 11/26/22 14:03 Eos % (Auto) 1.5 % 11/26/22 14:03 Baso % (Auto) 0.7 % 11/26/22 14:03 Neut # (Auto) 4.63 10^3/uL (1.8-7.7) 11/26/22 14:03 Lymph # (Auto) 0.6 10^3/uL (0.8-4.8) L 11/26/22 14:03 [place] # (Auto) 0.8 10^3/uL (0.2-0.9) 11/26/22 14:03 Eos # (Auto) 0.1 10^3/uL (0.0-0.8) 11/26/22 14:03 Baso # (Auto) 0.0 10^3/uL (0.0-0.1) 11/26/22 14:03 Nucleated RBC % (auto) 0 % 11/26/22 14: Nucleated RBCs # 0.0 /100WBC 11/26/22 14:03 PT 17.40 SECONDS (12.1-14.9) H 11/26/22 14:03 INR 1.39 (0.8-1.2) H 11/26/22 14:03 Sodium 140 mmol/L (136-145) 11/26/22 14:03 Potassium 4.5 mmol/L (3.5-5.1) 11/26/22 14:03 Chloride 104 mmol/L (98-107) 11/26/22 14:03 Carbon Dioxide 25 mmol/L (22-29) 11/26/22 14:03 Anion Gap 15.5 (5-19) 11/26/22 14:03 BUN 14 mg/dL (8-23) 11/26/22 14:03 Creatinine 0.7 mg/dL (0.7-1.2) 11/26/22 14:03 GFR Calculation Not Reportable 11/26/22 14:03 Glucose 123 mg/dL (65-115) H 11/26/22 14:03 Calculated Osmolality 292 mOsm/kg (285-295) 11/26/22 14:03 Calcium 7.9 mg/dL (8.5-10.5) L 11/26/22 14:03 Total Bilirubin 0.6 mg/dL (0.15-1.2) 11/26/22 14:03 AST 6 U/L (0-40) 11/26/22 14:03 ALT < 5 U/L (0-41) 11/26/22 14:03 Alkaline Phosphatase 94 U/L (40-130) 11/26/22 14:03 NT-Pro-B Natriuret Pep 7377 pg/mL (0-450) H 11/26/22 14:03 Total Protein 6.6 g/dL (6.6-8.7) 11/26/22 14:03 Albumin 3.9 g/dL (3.5-5.2) 11/26/22 14:03 Globulin 2.7 g/dL (1.3-4.6) 11/26/22 14:03 Digoxin 1.0 ng/mL (0.6-1.2) 11/26/22 14:03 Influenza Type A Ag negative (Negative) 11/26/22 15:17 Influenza Type B Ag negative (Negative) 11/26/22 15:17 SARS-CoV-2 Ag (Rapid) negative (Negative) 11/26/22 14:09 EKG Data EKG 1: I personally reviewed and interpreted this EKG as follows: EKG Interpretation Date: 11/26/22 EKG interpretation time: 13:53 Interpretation: paced hr [address] or t wave abnormalities qrs 190 qtc 487 Discharge Plan Discharge Patient Disposition: Home Clinical Impression: Community acquired pneumonia Condition: Stable Prescriptions: New doxycycline hyclate 100 mg tablet 100 mg PO BID 7 Days Qty: 14 0RF No Action senna 8.6 mg capsule 8.6 mg PO BID PRN (Reason: Constipation) pantoprazole 40 mg tablet,delayed release (DR/EC) 40 mg PO DAILY tamsulosin 0.4 mg capsule 0.4 mg PO DAILY carbidopa-levodopa 25-100 mg tablet 1 tab PO TID duloxetine 60 mg capsule,delayed release(DR/EC) 60 mg PO DAILY oxycodone-acetaminophen 10-325 mg tablet 1 tab PO Q6H PRN (Reason: Pain) diltiazem HCl 180 mg capsule,extended release 24hr 180 mg PO DAILY Eliquis 2.5 mg tablet 2.5 mg PO BID gabapentin 600 mg tablet 600 mg PO BID metoprolol tartrate 25 mg tablet 25 mg PO BID digoxin 125 mcg (0.125 mg) tablet 125 mcg PO DAILY donepezil 10 mg tablet 10 mg PO DAILY atorvastatin 20 mg tablet 20 mg PO BEDTIME melatonin 1 mg tablet 1 mg PO DAILY primidone 50 mg tablet 50 mg PO BID trazodone 100 mg tablet 50 mg PO BEDTIME memantine 10 mg tablet 10 mg PO BID alprazolam 0.25 mg tablet 0.25 mg PO TID PRN (Reason: Anxiety) cetirizine [Allergy Relief (cetirizine)] 5 mg tablet 5 mg PO DAILY PRN (Reason: Allergy Symptoms) cyclobenzaprine 10 mg tablet 10 mg PO BID PRN (Reason: Muscle Spasm) fluticasone propionate [Allergy Relief (fluticasone)] 50 mcg/actuation spray,suspension 1 spray intranasal DAILY Rx Instructions: administer into each nostril acetaminophen 325 mg tablet 650 mg PO QID PRN (Reason: Pain) lactulose 10 gram/15 mL solution 30 g PO DAILY loperamide 2 mg capsule 4 mg PO Q6H PRN (Reason: Constipation) [place] Nasal 0.65 % aerosol,spray 1 spray intranasal BID PRN (Reason: Congestion) tetrahydrozoline [Visine] 0.05 % drops 1 drp ophthalmic (eye) TID PRN (Reason: Dry Eye(S)) mecobalamin (vitamin B12) 1,000 mcg tablet,chewable 1,000 mcg PO DAILY Biofreeze (menthol) 4 % Gel 1 applic TOPICAL TID PRN (Reason: Pain) Discharge Orders: Discharge ED (Routine); Ordered 11/26/22 Ordered By: Zoila Gordon Referrals: Vi Murphy MD [Primary Care Provider] - 1-3 days Discharge Diet: Advance as tolerated Discharge Activity: Resume usual activity Patient Instructions: Pneumonia (ED) Coding Level of Care Code ED Powerhouse Mechanic Helper for Chg Fwd Exam Comprehensive
[2022-11-26 13:44] VITALS: BP 93/56; PULSE 70; RESP 19; TEMP 36.6; O2SAT 89; BMI 30.2
--- NOTE | 2022-11-26 13:53 | ECG_ITS ---
[facility] Test Date: 2022-11-26 Pat Name: Vijay Murcia Department: Room: Gender: Male Window Maker: : 1940 Requested By: Zoila Gordon Order Number: [id number] Mian MD: Dell Beck M.D. Measurements Intervals [place] Rate: 70 P: 180 MN: 202 QRS: -76 QRSD: 190 T: 83 QT: 467 QTc: 505 Interpretive Statements ELECTRONIC ATRIAL PACEMAKER ELECTRONIC VENTRICULAR PACEMAKER Compared to ECG 02/06/2022 19:31:23 No significant changes Electronically Signed On 11-26-2022 19:01:04 CANDLE MOLDER HAND by Dell Beck M.D. [email or web address] medical [email or web address] Medical [email or web address] memorial hospitalTherapeutic [email or web address]/[id number]
[2022-11-26 14:07] VITALS: BP 108/68
[2022-11-26] MEDS: sodium chloride 0.9% 1,000 ML 999 ML IV (14:17)
[2022-11-26 14:31] LABS: Basophils % 0.7 %; Eosinophils # 0.1 10^3/uL (0.0-0.8); Eosinophils % 1.5 %; Hematocrit 34.9 % (42.0-52.0); Hemoglobin 10.9 g/dL (11.7-16.6); Lymphocytes # 0.6 10^3/uL (0.8-4.8); Lymphocytes % 9.5 %; Mean Corpuscular HGB Conc 31.2 g/dL (30.0-36.0); Mean Corpuscular Hemoglobin 32.7 pg (28.0-34.0); Mean Corpuscular Volume 104.8 fl (80-94); Mean Platelet Volume 9.7 fL (7.4-10.4); Monocytes # 0.8 10^3/uL (0.2-0.9); Monocytes % 12.4 %; Neutrophils # 4.63 10^3/uL (1.8-7.7); Neutrophils % 75.6 %; Nucleated Red Blood Cells % 0 %; Platelet Count 194 10^3/cmm (130-400); Red Blood Count 3.33 10^6/uL (4.1-5.3); Red Cell Distribution Width 14.6 % (12.1-15.1); White Blood Count 6.1 10^3/uL (4.0-10.0)
[2022-11-26 14:47] LABS: SARS Covid-2 Antigen negative (Negative)
[2022-11-26 15:08] LABS: Alanine Aminotransferase < 5 U/L (0-41); Albumin Level 3.9 g/dL (3.5-5.2); Alkaline Phosphatase 94 U/L (40-130); Anion Gap 15.5 (5-19); Aspartate Amino Transferase 6 U/L (0-40); Blood Urea Nitrogen 14 mg/dL (8-23); Calcium 7.9 mg/dL (8.5-10.5); Carbon Dioxide 25 mmol/L (22-29); Chloride 104 mmol/L (98-107); Globulin 2.7 g/dL (1.3-4.6); Glucose 123 mg/dL (65-115); NT Pro B Type Natriuretic Pept 7377 pg/mL (0-450); Osmolality Calculated 292 mOsm/kg (285-295); Potassium 4.5 mmol/L (3.5-5.1); Sodium 140 mmol/L (136-145); Total Bilirubin 0.6 mg/dL (0.15-1.2); Total Protein 6.6 g/dL (6.6-8.7)
[2022-11-26] MEDS: doxycycline 100 mg Tablet PO (15:40)
[2022-11-26 15:55] LABS: Influenza A by IFA negative (Negative); Influenza B by IFA negative (Negative)
[2022-11-26 16:04] LABS: INR 1.39 (0.8-1.2)
[2022-11-26 16:32] VITALS: BP 106/64; PULSE 71; RESP 18; O2SAT 94
[2022-11-26 16:55] VITALS: BP 117/67; PULSE 70; RESP 18; O2SAT 91
[2022-11-26 17:29] VITALS: BP 117/67; PULSE 70; RESP 18; O2SAT 91
== END 2022-11-26 17:30 | disposition home or self-care (01) ==
PROVIDERS: Emergency Provider Emergency Medicine; PCP Family Medicine
DX: J18.9 Pneumonia, unspecified organism (principal); Z79.01 Long term (current) use of anticoagulants; Z20.822 Contact with and (suspected) exposure to COVID-19; I25.10 Atherosclerotic heart disease of native coronary artery without angina pectoris; I10 Essential (primary) hypertension; G20 Parkinson's disease; Z95.0 Presence of cardiac pacemaker; Z95.1 Presence of aortocoronary bypass graft
CPT/HCPCS: 36415; 71045; 80053; 80162; 83880; 85025; 85610; 87040; 87426; 87804; 93005; 99285; J7030

== ENCOUNTER → 2023-02-16 12:30 | Outpatient (BNVA) | payer MEDICARE, OTHER, SELFPAY | PROVIDERS: PCP Family Medicine; Visit Provider Internal Medicine Cardiovascular Disease | DX: Z45.010 Encounter for checking and testing of cardiac pacemaker pulse generator [battery] (principal) | CPT/HCPCS: 93296 ==

== ENCOUNTER → 2023-03-15 11:12 | Outpatient (BNVA) | payer MEDICARE, OTHER, SELFPAY | PROVIDERS: PCP Family Medicine; Visit Provider Specialist | DX: I25.10 Atherosclerotic heart disease of native coronary artery without angina pectoris (principal); I10 Essential (primary) hypertension; Z95.0 Presence of cardiac pacemaker; I48.91 Unspecified atrial fibrillation; Z79.01 Long term (current) use of anticoagulants | CPT/HCPCS: 99214 ==

== ENCOUNTER → 2023-09-13 11:04 | Outpatient (BNVA) | payer MEDICARE, OTHER, SELFPAY | PROVIDERS: PCP Family Medicine; Visit Provider Internal Medicine Cardiovascular Disease | DX: I25.10 Atherosclerotic heart disease of native coronary artery without angina pectoris (principal); I10 Essential (primary) hypertension; Z95.0 Presence of cardiac pacemaker; I48.91 Unspecified atrial fibrillation; Z79.01 Long term (current) use of anticoagulants | CPT/HCPCS: 99214 ==

== ENCOUNTER → 2023-12-14 11:37 | Outpatient (BNVA) | payer MEDICARE, OTHER, SELFPAY | PROVIDERS: PCP Family Medicine; Visit Provider Internal Medicine Cardiovascular Disease | DX: I10 Essential (primary) hypertension (principal); Z95.0 Presence of cardiac pacemaker; I25.10 Atherosclerotic heart disease of native coronary artery without angina pectoris; I48.19 Other persistent atrial fibrillation; Z79.01 Long term (current) use of anticoagulants | CPT/HCPCS: 99214 ==

== ENCOUNTER → 2024-02-14 14:25 | Outpatient (BNVA) | payer MEDICARE, OTHER, SELFPAY | PROVIDERS: PCP Family Medicine; Visit Provider Internal Medicine Cardiovascular Disease | DX: Z95.0 Presence of cardiac pacemaker (principal); I25.10 Atherosclerotic heart disease of native coronary artery without angina pectoris; I10 Essential (primary) hypertension; I48.19 Other persistent atrial fibrillation | CPT/HCPCS: 99214 ==

== ENCOUNTER → 2024-03-27 17:08 | Outpatient (BNVA) | payer MEDICARE, OTHER, SELFPAY | PROVIDERS: PCP Family Medicine; Visit Provider Internal Medicine Cardiovascular Disease | DX: I25.10 Atherosclerotic heart disease of native coronary artery without angina pectoris (principal); I48.19 Other persistent atrial fibrillation; Z45.010 Encounter for checking and testing of cardiac pacemaker pulse generator [battery]; I48.20 Chronic atrial fibrillation, unspecified | CPT/HCPCS: 85025; 85610; 86850; 86900; 99214 ==

== ENCOUNTER 2024-03-31 09:02 | Outpatient (CLI) | payer MEDICARE, OTHER, SELFPAY ==
[2024-03-31] VITALS (23 sets, daily range): BP systolic 122–176; BP diastolic 49–106; PULSE 70–98; RESP 9–39; TEMP 36.5–37.1; O2SAT 90–98; BMI 28.1; BMI 21.8
--- NOTE | 2024-03-31 09:52 | W.PM.OPSUD ---
Surgery/Procedure H&P Update DATE OF PROCEDURE: March 31, 2024 DATE H&P PERFORMED: 03/27/24 H&P UPDATE INFORMATION: I have reviewed H&P completed within last 30 days, I have examined patient prior to procedure and No changes to prior documentation PREOP DIAGNOSIS: PPM TRUDI PRIMARY INDICATION FOR PROCEDURE: Patient with symptomatic bradycardia, pacemaker TRUDI PLANNED PROCEDURE: Operation Date: 03/31/24 10:00 Proposed Procedures p Pacemaker Generator Change PPM GEnerator Change 97217, Z45.010, I44.1(Not Applicable) - Sahil Choe MD PATIENT REASSESSED PRIOR TO SEDATION, WITH NO CHANGE NOTED: Yes PHYSICAL EXAM: alert, oriented x 3, clear to auscultation bilaterally and regular rate & rhythm AIRWAY EVAL/ANESTHESIA PLAN: normal airway, see other exam findings, ASA III, Monitored Anesthesia, Local Anesthesia, Risks, benefits & alternatives of sedation and/or procedure discussed and Patient agrees to continue as planned
--- NOTE | 2024-03-31 11:00 | SUR.EXTENDED ---
Received the patient back from the laboratory administrative director s/p Pacemaker gen change. Patient A & O x 3. glass cylinder flanger placed and vital signs obtained. Big bulky pressure dressing dry and intact to the left upper chest. No bleeding or hematoma noted. No other assessment changes noted from pre cath assessment. Will transfer to 106 when recovery is complete.
--- NOTE | 2024-03-31 11:05 | PM.OP ---
Operative Report Date of procedure: March 31, 2024 Surgeon: Sahil Choe MD Procedure: PROCEDURE: PACEMAKER REVISION PREOPERATIVE DIAGNOSIS: Pacemaker elective replacement indication. POSTOPERATIVE DIAGNOSIS: Pacemaker elective replacement indication. ESTIMATED BLOOD LOSS: None COMPLICATIONS: None. BRIEF HISTORY: The patient is 83-year-old white 2020@May who had a permanent pacemaker implantation for intermittent atrial fibrillation/symptomatic bradycardia. The patient was found to have elective replacement indication, during routine office followup evaluation. For further management of patient's condition, he required a pacemaker revision. Patient required a dual-chamber pacemaker for symptom relief and the need for AV synchrony The procedure was explained to the patient and his family in detail with the risks and benefits. The risks of bleeding, hematoma, vascular injury, infection and other concomitant complications were explained in detail, which the patient understood well and consented to proceed. PROCEDURES PERFORMED: 1. Explantation of the old pacemaker generator. 2. Implantation of the new generator. The patient brought to the Cardiac [facility]. The left side of the neck and the subclavian area were cleaned and draped in a sterile fashion. 1% Xylocaine was used for local anesthetic agent. A 2 inch long incision was made just below the previous pacemaker scar. By sharp and blunt dissection, the pacemaker pocket was accessed. The old generator was delivered from the pocket. The generator was detached from the lead. The new Medtronic generator was attached to the lead. The pacemaker pocket was copiously irrigated with vancomycin solution. Complete hemostasis was achieved. The lead was positioned behind the generator and the generator was attached to the pectoralis fascia by suturing with 0 Surgilon. Sponge counts were confirmed. The pacemaker pocket was closed in layers. Skin was approximated using 4-0 Vicryl. EXPLANTED DEVICE: Pacemaker Generator: Brand: Bre[employer]enridge [employer]. Model number: L3 01. Serial number: [id number]. Date of implant: 08/26/2017 IMPLANTED DEVICES: Ventricular Lead: Date of implantation: 02/07/2004 Model number: [id number] Serial number: [id number] Make: Guidant Atrial lead Date of implantation: 02/07/2004 Model number: [id number] Serial number: [id number] Make: Guidant. Implanted Generator: Date of implantation : 03/31/2024 Brand: Medudem IS- 1. Model number: L -111 Serial number: [id number] Make: Breckenridge Scientific Stimulation Threshold: The ventricular sensing was 6.9 millivolts. Ventricular lead impedance was 599 ohms and the pacing threshold was 1.5 volts at 0.4 milliseconds. The atrial sensing was 1.0 millivolts. Atrial lead impedance was 550 ohms and the pacing threshold was not obtained because of the atrial fibrillation The pacemaker was set for DDDR mode with an upper rate of 120 and a lower rate of 60. A pressure dressing was applied over the pacemaker site. The patient was transferred back to medical floor in stable condition. Sponge counts were correct.
--- NOTE | 2024-03-31 11:31 | SUR.EXTENDED ---
Patient transferred via bed to [facility] with his belongings and wheelchair from [facility].
[2024-03-31] MEDS: sodium chloride 0.9% 1,000 ML 75 ML IV ×2 (11:59→22:38)
[2024-03-31] MEDS: oxyCODONE-APAP 10-325 mg Tablet 1 TAB PO ×2 (12:16→19:56)
[2024-03-31] MEDS: tamsulosin 0.4 mg Capsule 0.400000000000000022 MG PO (12:17)
[2024-03-31] MEDS: pantoprazole DR 40 mg Tablet PO (12:17)
[2024-03-31] MEDS: duloxetine 60 mg Capsule PO (12:17)
[2024-03-31] MEDS: carbidopa-levodopa 25-100mg Tablet 1 EACH PO ×2 (14:07→19:59)
--- NOTE | 2024-03-31 16:24 | PC.NURSE ---
updated son lyle of the pt's hospitalization informed him of possible dc tomorrow afternoon after last dose of his iv antibiotic.
[2024-03-31] MEDS: ceFAZolin 2,000 MG in sodium chloride 0.9% (plus) 50 ML 100 MG IV (17:17)
[2024-03-31] MEDS: memantine 5 mg tablet 10 MG PO (17:18)
[2024-03-31] MEDS: metoprolol tartrate 25 mg Tablet PO (17:18)
[2024-03-31] MEDS: primidone 50 mg Tablet PO (17:18)
[2024-03-31] MEDS: gabapentin 300 mg Capsule 600 MG PO (17:18)
--- NOTE | 2024-03-31 19:20 | PC.NURSE ---
During bedside report patient was found to have pulled out his Iv, removed tele pads, and removed his pacer site dressing. The patient said they were bothering him and they were too tight. The patient is alert and oriented to place, person, and year but needs frequent explanation of purpose for lines and reminders not to remove dressings. A new IV was started and replaced pacer site dressing and telemetry. Bed alarm applied for safety and call saldivar placed within reach.
[2024-03-31] MEDS: atorvastatin 40 mg Tablet PO (19:57)
[2024-03-31] MEDS: trazodone 100 mg Tablet 50 MG PO (19:58)
[2024-03-31] MEDS: ALPRAZolam 0.5 mg Tablet 0.25 MG PO (21:01)
[2024-04-01] MEDS: ceFAZolin 2,000 MG in sodium chloride 0.9% (plus) 50 ML 100 MG IV ×2 (01:03→09:06)
[2024-04-01 04:00] VITALS: BP 148/82; PULSE 70; RESP 20; TEMP 36.4; O2SAT 92
[2024-04-01 05:13] VITALS: RESP 18; O2SAT 92
[2024-04-01] MEDS: oxyCODONE-APAP 10-325 mg Tablet 1 TAB PO (05:13)
[2024-04-01 05:55] VITALS: PULSE 66
--- NOTE | 2024-04-01 06:08 | ECG_ITS ---
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 Measurements Intervals [place] Rate: 70 P: -52 SD: 213 QRS: -85 QRSD: 184 T: 85 QT: 462 QTc: 499 Interpretive Statements ELECTRONIC ATRIAL PACEMAKER ELECTRONIC VENTRICULAR PACEMAKER ABNORMAL RHYTHM ECG Compared to ECG 11/26/2022 13:53:47 No significant changes Electronically Signed On 04-01-2024 20:11:35 CDT by Sahil Choe M.D. [id number]
[2024-04-01] MEDS: cyanocobalamin 1,000 mcg Tablet 1000 MCG PO (07:33)
[2024-04-01] MEDS: primidone 50 mg Tablet PO (07:33)
[2024-04-01] MEDS: donepezil 5 MG Tablet 10 MG PO (07:33)
[2024-04-01] MEDS: tamsulosin 0.4 mg Capsule 0.400000000000000022 MG PO (07:33)
[2024-04-01] MEDS: pantoprazole DR 40 mg Tablet PO (07:33)
[2024-04-01 07:34] VITALS: PULSE 71
[2024-04-01] MEDS: digoxin 125 mcg Tablet PO (07:34)
[2024-04-01] MEDS: gabapentin 300 mg Capsule 600 MG PO (07:34)
[2024-04-01] MEDS: dilTIAZem ER (24HR) 180 mg Capsule PO (07:34)
[2024-04-01] MEDS: duloxetine 60 mg Capsule PO (07:34)
[2024-04-01] MEDS: metoprolol tartrate 25 mg Tablet PO (07:35)
[2024-04-01] MEDS: carbidopa-levodopa 25-100mg Tablet 1 EACH PO (07:35)
[2024-04-01] MEDS: memantine 5 mg tablet 10 MG PO (07:35)
[2024-04-01] MEDS: lactulose oral liq 20 gm/30 mL UDC PO (07:35)
[2024-04-01 07:37] VITALS: BP 145/79; PULSE 70; RESP 18; TEMP 36.3; O2SAT 93
--- NOTE | 2024-04-01 08:05 | P.PN_ITS ---
Subjective Subjective: The patient is feeling okay. No chest pain, palpitations or shortness of breath. Telemetry shows atrial fibrillation with demand V paced rhythm. Vital signs are stable. No hematoma bleeding from the pacemaker insertion site.. The patient tolerated the IV antibiotics so far well. He is ambulating on telemetry with assistance. Medications: Medication Review Details: Current Medications Acetaminophen (Acetaminophen 500 Mg Tablet) 500 mg PO Q8H PRN PRN Reason: Pain Albuterol/Ipratropium (Ipratropium-Albuterol 3 Ml Neb) 3 ml INHALATION Q6H PRN PRN Reason: Shortness Of Breath Alprazolam (Alprazolam 0.5 Mg Tablet) 0.25 mg PO TID PRN PRN Reason: Anxiety Last Admin: 03/31/24 21:01 Dose: 0.25 mg Atorvastatin Calcium (Atorvastatin 40 Mg Tablet) 40 mg PO BEDTIME [facility] Last Admin: 03/31/24 19:57 Dose: 40 mg Carbidopa/Levodopa (Carbidopa-Levodopa 25-100mg Tablet) 1 each PO TID [facility] Last Admin: 04/01/24 07:35 Dose: 1 each Cetirizine HCl (Cetirizine 10 Mg Tablet) 5 mg PO DAILY PRN PRN Reason: Allergy Symptoms Cyanocobalamin (Cyanocobalamin 1,000 Mcg Tablet) 1,000 mcg PO DAILY [facility] Last Admin: 04/01/24 07:33 Dose: 1,000 mcg Cyclobenzaprine HCl (Cyclobenzaprine 10 Mg Tablet) 10 mg PO BID PRN PRN Reason: Muscle Spasm Digoxin (Digoxin 125 Mcg Tablet) 125 mcg PO DAILY [facility] Last Admin: 04/01/24 07:34 Dose: 125 mcg Diltiazem HCl (Diltiazem Er (24hr) 180 Mg Capsule) 180 mg PO DAILY [facility] Last Admin: 04/01/24 07:34 Dose: 180 mg Donepezil HCl (Donepezil 5 Mg Tablet) 10 mg PO DAILY [facility] Last Admin: 04/01/24 07:33 Dose: 10 mg Duloxetine HCl (Duloxetine 60 Mg Capsule) 60 mg PO DAILY [facility] Last Admin: 04/01/24 07:34 Dose: 60 mg Fluticasone Propionate (Fluticasone Nasal [place] 16gm Btl) 1 spray INTRANASAL DAILY [facility] Last Admin: 04/01/24 07:39 Dose: Not Given Gabapentin (Gabapentin 300 Mg Capsule) 600 mg PO BID [facility] Last Admin: 04/01/24 07:34 Dose: 600 mg Sodium Chloride (Sodium Chloride 0.9%) 1,000 mls @ 75 mls/hr IV .[id number] [facility] Last Admin: 03/31/24 22:38 Dose: 75 mls/hr Cefazolin Sodium 2,000 mg/ (Sodium Chloride) 50 mls @ 100 mls/hr IV Q8H [facility]; Protocol Stop: 04/01/24 10:29 Last Infusion: 04/01/24 01:45 Dose: Infused Lactulose (Lactulose Oral Liq 20 Gm/30 Ml Udc) 20 gm PO DAILY [facility] Last Admin: 04/01/24 07:35 Dose: 20 gm Loperamide HCl (Loperamide 2 Mg Capsule) 4 mg PO Q6H PRN PRN Reason: Constipation Memantine (Memantine 5 Mg Tablet) 10 mg PO BID [facility] Last Admin: 04/01/24 07:35 Dose: 10 mg Metoprolol Tartrate (Metoprolol Tartrate 25 Mg Tablet) 25 mg PO BID [facility] Last Admin: 04/01/24 07:35 Dose: 25 mg Non-Formulary Medication (Melatonin) 1 mg PO DAILY [facility] Last Admin: 04/01/24 07:39 Dose: Not Given Non-Formulary Medication (Menthol [Biofreeze (Menthol)]) 1 applic TOPICAL TID PRN PRN Reason: Pain Non-Formulary Medication (Tetrahydrozoline [Visine]) 1 drop EYEAFF TID PRN PRN Reason: Dry Eye(S) Oxycodone/Acetaminophen (Oxycodone-Apap 10-325 Mg Tablet) 1 tab PO Q6H PRN PRN Reason: Pain Last Admin: 04/01/24 05:13 Dose: 1 tab Pantoprazole Sodium (Pantoprazole Dr 40 Mg Tablet) 40 mg PO DAILY [facility] Last Admin: 04/01/24 07:33 Dose: 40 mg Primidone (Primidone 50 Mg Tablet) 50 mg PO BID [facility] Last Admin: 04/01/24 07:33 Dose: 50 mg Senna (Sennosides 8.6 Mg Tablet) 8.6 mg PO BID PRN PRN Reason: Constipation Sodium Chloride (Saline Nasal [place] 44ml Btl) 1 spray NASAL BID PRN PRN Reason: Congestion Tamsulosin HCl (Tamsulosin 0.4 Mg Capsule) 0.4 mg PO DAILY [facility] Last Admin: 04/01/24 07:33 Dose: 0.4 mg Trazodone HCl (Trazodone 100 Mg Tablet) 50 mg PO BEDTIME [facility] Last Admin: 03/31/24 19:58 Dose: 50 mg Vitals/I&O/Wt Last Vital Signs Temp 97.3 F L 04/01/24 07:37 Pulse 70 04/01/24 07:37 Resp 18 04/01/24 07:37 BP 145/79 04/01/24 07:37 Pulse Ox 93 04/01/24 07:37 O2 Del Method Room Air 04/01/24 07:37 03/31/24 04/01/24 04/01/24 22:59 06:59 14:59 Intake Total 1068.75 / 1428.75 150 / 1578.75 Output Total 300 / 520 0 / 520 150 / 150 Balance 768.75 / 908.75 150 / 1058.75 -150 / -150 Weight last 48 hrs Weight 157 lb 12.8 oz Weight 161 lb Weight 154 lb Physical Exam Narrative: GENERAL: The patient is alert and oriented times three. Not in any acute distress. HEENT: No significant pallor, icterus or lymphadenopathy.Oral cavity: There are no mucous membrane lesions. NECK: Trachea appears to be central. No masses noted. No JVD or thyromegaly appreciated. RESPIRATORY: Chest is symmetrical. No intercostals muscle retraction or any accessory muscle activation. There is no chest wall tenderness. Breath sounds are heard bilaterally. No rales or rhonchi heard. No evidence of any consolidation. The pacemaker site appears to be healing well. No hematoma or bleeding BREASTS: Deferred. HEART: The heart sounds are normal. No S3 or S4. Short systolic murmur in the lower sternal border. No diastolic murmurs. No pericardial rub ABDOMEN: No vessel pulsations or distention. No tenderness. No organomegaly appreciated. Bowel sounds are normally heard. : Deferred. RECTAL: Deferred. LYMPHATIC: No lymphadenopathy noted in the neck. EXTREMITIES: No edema or cyanosis. No clubbing. MUSCULOSKELETAL: No acute joint deformities or swelling SKIN: There are no significant rashes or ecchymosis NEUROPSYCHIATRIC: The patient is alert and oriented x3. Appears to be in a good mood. No tremors or rigidity noted. A&P Assessment and plan (1) CAD (coronary artery disease): Since the patient has no specific symptoms of coronary insufficiency, is advised to continue on the current medications. We will continue on the risk modifying measures. Advised to contact our office, if the patient develop any significant chest pain or other ischemic symptoms Qualifiers: Associated angina: without angina Coronary Disease-Associated Artery/Lesion type: [place] artery [place] vs. transplanted heart: [place] heart Qualified Code(s): I25.10 - Atherosclerotic heart disease of [place] coronary artery without angina pectoris (2) HTN (hypertension): Since the blood pressure is in the normal range, patient may not require any medication changes at this time. Advised to continue on the current measures. Qualifiers: Hypertension type: essential hypertension Qualified Code(s): I10 - Essential (primary) hypertension (3) Atrial fibrillation: The patient is going to be started on Eliquis tomorrow. May continue on the other current medications as it is. Qualifiers: Atrial fibrillation type: persistent (not longstanding) Qualified Code(s): I48.19 - Other persistent atrial fibrillation (4) Pacemaker at end of battery life: Status post pacemaker revision. Currently seems to be stable. The pacemaker was interrogated this morning. Pacing function was found to be appropriate. Plan Since the patient is remaining stable, may be discharged back to the [facility] today Advised to continue on the above medications. He also is advised to take cephalexin 500 milligrams by mouth every six hours for five days; multivitamin one tablet by mouth daily for two weeks; Postpacemaker care instructions were given. Patient will be coming back to the office next week for a wound check and pacemaker interrogation. In the event of the patient developing any unusual pain, swelling or bleeding at the pacemaker site, is instructed to call us or come back to the hospital. Patient will be taking the antibiotics and the multivitamins as instructed. May continue taking the other medications as below. Attestations Medical Necessity Statement*: Discharge back to [facility] today Coding Level of Care Code 75175 Diagnoses Coronary artery disease involving [place] coronary artery of [place] heart without angina pectoris I25.10 Associated angina: without angina Coronary Disease-Associated Artery/Lesion type: [place] artery [place] vs. transplanted heart: [place] heart Essential hypertension I10 Hypertension type: essential hypertension Persistent atrial fibrillation I48.19 Atrial fibrillation type: persistent (not longstanding) Pacemaker at end of battery life Z45.010
--- NOTE | 2024-04-01 09:57 | PC.NURSE ---
Placed immobilizer on patient and performed dressing change to left upper chest. Steri-strips intact. No s/s of bleeding or hematoma formation observe.
[2024-04-01 11:57] VITALS: BP 166/91; PULSE 74; RESP 15; TEMP 36.4
--- NOTE | 2024-04-01 12:21 | PC.NURSE ---
Patient discharged to [facility]. Report called at 1137. Patient taken by wheelchair to private vehilce. Son, Ken ortiz provided transportation.
== END 2024-04-01 12:26 ==
LOC: CCL 09:09 → CSU 13:18
PROVIDERS: PCP Family Medicine; Visit Provider Internal Medicine Cardiovascular Disease
DX: Z45.010 Encounter for checking and testing of cardiac pacemaker pulse generator [battery] (principal); I25.10 Atherosclerotic heart disease of native coronary artery without angina pectoris; I10 Essential (primary) hypertension; I48.19 Other persistent atrial fibrillation; G20.A1 Parkinson's disease without dyskinesia, without mention of fluctuations; Z86.718 Personal history of other venous thrombosis and embolism; Z86.73 Personal history of transient ischemic attack (TIA), and cerebral infarction without residual deficits; Z86.711 Personal history of pulmonary embolism
CPT/HCPCS: 33228; 36415; 93005; 96374; 96375; 97165; 99152; 99153; A4216; C1769; C1785; J0690; J2250; J3010; J3370; J7030; J7050; L3670

== ENCOUNTER → 2024-04-14 10:13 | Outpatient (BNVA) | payer MEDICARE, OTHER, SELFPAY | PROVIDERS: PCP Family Medicine; Visit Provider Nurse Practitioner Family | DX: Z95.0 Presence of cardiac pacemaker (principal); I10 Essential (primary) hypertension | CPT/HCPCS: 99024; 99214 ==

== ENCOUNTER 2024-04-25 06:02 | Inpatient (IN) | payer MEDICARE, OTHER, SELFPAY ==
[2024-04-25] VITALS (14 sets, daily range): BP systolic 107–127; BP diastolic 61–75; PULSE 60–79; RESP 16–19; TEMP 36.8–37.6; O2SAT 90–93; BMI 21.7
--- NOTE | 2024-04-25 06:22 | ED_ITS ---
HPI - Fall General: Chief Complaint: Fall Stated Complaint: AMS Time Seen by Provider: 04/25/24 06:07 Source: EMS and other ([facility] report) History of Present Illness: This patient was transported to the emergency department from the long-term care [facility] by EMS. At allegedly the patient was found on the floor this morning by staff and they stated that time he did not respond to them. According to EMS upon their arrival he was responsive moves all extremities and otherwise did not appear to have any signs of trauma. The patient states to me he has no pain and is not sure why he is here. He does take Eliquis and has a diagnosis of atrial fibrillation so likely this is for stroke risk reduction. MD complaint: fall Fall witnessed: no Place fall occurred: jail/SNF Associated symptoms-after fall: Denies abdominal pain or neck pain Review of Systems Const: Denies: fever(s) or chills Eyes: Denies: change in vision ENMT: Denies: odynophagia Card: Reports: irregular heart rhythm Resp: Denies: productive cough or non-productive cough GI: Denies: abdominal pain Musc: Denies: neck pain, back pain, extremity pain or extremity swelling Neuro: Denies: weakness in extremities Alan/Lymph: Reports: easy bruising PFSH ED PFSH: Medical History (Updated 04/25/24 @ 08:41 by Konstantin Landis DO) Atrial fibrillation Parkinson disease Presence of cardiac pacemaker CAD (coronary artery disease) HTN (hypertension) Benign essential tremor Surgical History S/P CABG (coronary artery bypass graft) Family History Denies family history of Diabetes Cancer Stroke Social History Smoking and tobacco/nicotine status: never used tobacco/nicotine Alcohol intake: never Substance/Drug Use: never Physical Exam Narrative: EXAM NARRATIVE: Patient is a elderly gentleman who spontaneously is alert is spontaneous eye opening answers questions and simple 1-2 word answers. Appears to be in no acute distress. Const: COMMON NORMALS: no acute distress and alert GENERAL APPEARANCE: cooperative NUTRITIONAL APPEARANCE: thin ORIENTATION/CONSCIOUSNESS: Yes awake and Yes oriented to person HENMT: COMMON NORMALS: normocephalic, atraumatic, Normal external nose present, Normal nasal mucous membranes and turbinates present, moist oral mucous membranes and oropharynx normal HEAD & SCALP: normocephalic and atraumatic NOSE: Normal external nose present and Normal nasal mucous membranes and turbinates present Eye: COMMON NORMALS: Equal, round and reactive pupils present, EOMs intact b ilaterally and conjunctivae normal CONJUNCTIVA: Yes conjunctivae normal PUPIL: Yes Equal, round and reactive pupils present Neck/C-Spine: CERVICAL SPINE: Yes cervical ROM normal, No pain with cervical ROM, No Cervical spine tenderness, No step off deformity, No Paracervical muscle tenderness and No Trapezius muscle tenderness Chest: COMMONS NORMALS: normal inspection of the chest and normal palpation of entire chest wall Resp: COMMON NORMALS: normal respiratory effort, No retractions, No use of accessory muscles and clear to auscultation bilaterally AUSCULTATION: clear to auscultation bilaterally Cardio: COMMON NORMALS: No murmurs present (Cardio) and Peripheral pulses 2+ throughout RHYTHM: abnormal rhythm irregularly irregular PERIPHERAL PULSES: Peripheral pulses 2+ throughout GI: COMMON NORMALS: Normal to inspection, nondistended, normoactive bowel sounds present, Soft to palpation and non-tender PALPATION: Yes Soft to palpation : COMMON NORMALS: Yes no CVA tenderness BLADDER/KIDNEY EXAM: Yes no CVA tenderness Back/Pelvis: COMMON NORMALS: no CVA tenderness, no thoracic nor lumbar tenderness and straight leg raise negative bilaterally Extremity: COMMON NORMALS: normal to inspection, full ROM, capillary refill normal, no calf tenderness and no pedal edema NARRATIVE EXTREMITY EXAM: No deformity. Moves all extremities normally. Neuro: SHAW COMA SCALE: document GCS findings Blanchard coma scale eye opening: Spontaneous [place]anchard coma scale verbal response: Orientated Shaw coma scale motor response: Obey commands Blanchard coma scale total score: 15 COMMON NORMALS: moves all extremities, no focal motor deficits and no sensory deficits noted SENSORIUM/ORIENTATION: Yes alert and Yes oriented to person Skin: COMMON NORMALS: no rashes or lesions noted and no wounds GENERAL SKIN EXAM: no rashes or lesions noted Course Reevaluation(s): Reevaluation #1: The patient remained stable. CT scan is unrevealing for any evidence of skull fracture or intracranial hemorrhage etc. Repeat examination reveals no other stigmata or findings to suggest acute injury. He is drinking fluids and alert. At this point no evidence of a ongoing emergency medical condition he is suitable to be transferred back to long-term care facility for further observation and additional evaluation is indicated. Time: 08:37 Vital Signs: Vital signs: Vital Signs Temperature 99.5 F 04/25/24 06:03 Pulse Rate 75 04/25/24 07:30 Respiratory Rate 16 04/25/24 06:32 Blood Pressure 113/62 04/25/24 07:30 Pulse Oximetry 91 04/25/24 07:30 Oxygen Delivery Me thod Room Air 04/25/24 06:03 MDM - Fall Medical Decision Making This patient was transported by EMS to our emergency department from a long-term care facility because he allegedly was found on the floor this morning. He does have a history of atrial fibrillation and does take Eliquis. History is limited to that which was obtained from EMS, patient's limited history as well as jail history. The patient's clinical examination was reassuring. He was alert with a GCS of 15. No evidence of physical findings to suggest acute injury. Blood sugar was obtained which was reassuring to make sure that there was no evidence of hypoglycemia. 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 He was continued to be observed in the emergency department without any evidence that suggest ongoing shoes and no repeat findings on repeat examination. Patient is being discharged back to the long-term care facility without any evidence of intracranial or other physical injury at this time. Lab Data I reviewed the patient's lab results. Radiology Impressions Head CT 04/25/24 06:27 IMPRESSION: No acute intracranial abnormality. Laboratory Results POC Glucose 181 mg/dL (70-110) H 04/25/24 06:39 All radiology interpretation(s) finalized by discharge Discharge Plan Discharge Patient Disposition: [facility] Clinical Impression: Fall from ground level Condition: Stable Discharge Orders: Discharge ED (Routine); Ordered 04/25/24 Ordered By: Konstantin Landis Referrals: Vi Murphy MD [Primary Care Provider] - Discharge Diet: Usual diet Discharge Activity: Increase activity as tolerated Activity Restrictions/Additional Instructions: There was no evidence of injury to this patient this morning. A CT scan of his head was obtained which was unremarkable for any evidence of injury bleeding etc. If it anytime the patient develops new or concerning symptoms we are happy to reevaluate him. He should resume his normal diet, medication and activity. Coding Level of Care Code ED Integrated Campaign Manager for Ct Sarkar
--- NOTE | 2024-04-25 06:27 | CTR_ITS ---
PROCEDURE INFORMATION: Exam: CT Head Without Contrast Exam date and time: 04/25/2024 6:47 AM Age: 83 years old Clinical indication: Injury or trauma; Fall; Blunt trauma (contusions or hematomas); Additional info: Fall on eliquis TECHNIQUE: Imaging protocol: Computed tomography of the head without contrast. Radiation optimization: All CT scans at this facility use at least one of these dose optimization techniques: automated exposure control; mA and/or kV adjustment per patient size (includes targeted exams where dose is matched to clinical indication); or iterative reconstruction. COMPARISON: CT head wo con* [id number] 09/30/2022 5:51 PM RADIATION DOSE METRICS: Total DLP (mGy-cm): 1196.3 FINDINGS: Brain: . No hemorrhage. Periventricular white matter lucency represents atherosclerotic encephalopathic changes. No mass effect. Cerebral ventricles: No ventriculomegaly. Ventricular prominence proportionate to the degree of atrophy observed. Paranasal sinuses: Visualized sinuses are unremarkable. No fluid levels. Mastoid air cells: Visualized mastoid air cells are well aerated. Bones: Unremarkable. No acute fracture. Soft tissues: Unremarkable. CT/CT head wo con* [id number] IMPRESSION: No acute intracranial abnormality.
--- NOTE | 2024-04-25 06:42 | PC.NURSE ---
Incorrectly marked EKG as complete on this pt, EKG was cx and not completed
[2024-04-25 06:43] LABS: Glucose Point of Care 181 mg/dL (70-110)
--- NOTE | 2024-04-25 08:50 | PC.NURSE ---
ROXANA HERNANDEZ CONTACTED IN ATTEMPT TO GET PATIENT BACK HOME. THIS NURSE TALKED TO LYSSA. LYSSA INSTRUCTED THIS NURSE THAT SHE WOULD CALL BACK AFTER SHE TRIED TO GET AHOLD OF TRANSPORT.
--- NOTE | 2024-04-25 09:04 | ECG_ITS ---
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 Measurements Intervals [place] Rate: 70 P: 264 ID: [id number] QRS: -87 QRSD: 153 T: -64 QT: 491 QTc: 533 Interpretive Statements ELECTRONIC ATRIAL PACEMAKER ELECTRONIC VENTRICULAR PACEMAKER ST DEPRESSION, CONSIDER SUBENDOCARDIAL INJURY [0.1+ mV ST DEPRESSION] Compared to ECG 04/01/2024 06:08:53 ST (T wave) deviation now present Electronically Signed On 04-25-2024 12:39:27 CDT by Dell Beck M.D. [email or web address] [email or web address] rankinZeebooh[email or web address]/store/[id number]
--- NOTE | 2024-04-25 09:04 | XRR_ITS ---
PROCEDURE INFORMATION: Exam: XR Chest Exam date and time: 04/25/2024 9:11 AM Age: 83 years old Clinical indication: Other: Weakness; Additional info: Weak TECHNIQUE: Imaging protocol: Radiologic exam of the chest. Views: 1 view. COMPARISON: CR XR chest 1V portable [id number] 11/26/2022 1:44 PM FINDINGS: Tubes, catheters and devices: Multi lead electronic cardiac device projects over the left chest. Lungs: Right basilar airspace opacity. Pleural spaces: No large pleural effusion. No distinct pneumothorax. Heart/Mediastinum: Cardiomediastinal silhouette is midline and stable in size. Bones/joints: Postsurgical changes of prior median sternotomy. No acute osseous findings. XR/XR chest 1V portable [id number] IMPRESSION: Right basilar airspace opacity. This may represent infiltrate or atelectasis.
--- NOTE | 2024-04-25 09:08 | PC.NURSE ---
PER VERBAL ORDERS FROM DR. CALI, HOLDING DISCHARGE IN ORDER TO RUN ADDITIONAL TESTS.
[2024-04-25] MEDS: lactated ringers 1,000 ML 999 ML IV (09:28)
[2024-04-25 09:35] LABS: Urine Color Dark Yellow (Yellow)
[2024-04-25 09:36] LABS: Add Urine Microscopic? YES; Bilirubin Urine Neg (Negative); Blood Urine 2+ (Negative); Glucose Urine UA Norm (Normal); Ketones Urine 1+ (Negative); Leukocyte Esterase Urine Trace (Negative); Nitrate Urine Negative (Negative); Protein Urine 1+ (Negative); Urine Appearance Clear (CLEAR); Urobilinogen Urine Norm (Negative); pH Urine 5 (5-7)
[2024-04-25 09:45] LABS: Bacteria Urine TRACE /hpf; Mucus Urine 3+ /hpf; RBC Urine 0-4 /hpf (0-2); Squamous Epithelial Cell Urine 0-4 /hpf (0-5); WBC Urine 0-4 /hpf (0-5)
[2024-04-25 09:46] LABS: Add Urine Culture? No
[2024-04-25 10:00] LABS: Basophils % 0.1 %; Hematocrit 40.1 % (37-53); Lymphocytes # 0.3 10^3/uL (0.8-4.8); Mean Corpuscular HGB Conc 33.2 g/dL (30-55); Mean Corpuscular Hemoglobin 35.5 pg (27-33); Mean Corpuscular Volume 106.9 fl (82-101); Mean Platelet Volume 9.6 fL (7.4-10.4); Monocytes # 0.8 10^3/uL (0.2-0.9); Monocytes % 6.8 %; Neutrophils # 9.86 10^3/uL (1.8-7.7); Neutrophils % 89.9 %; Nucleated Red Blood Cells % 0 %; Platelet Count 201 10^3/cmm (157-399); Red Blood Count 3.75 10^6/uL (3.85-5.65); Red Cell Distribution Width 13.8 % (12.1-15.1); White Blood Count 10.97 10^3/uL (3.29-11.43)
[2024-04-25 10:20] LABS: Alanine Aminotransferase 14 U/L (0-41); Albumin Level 4.1 g/dL (3.5-5.2); Alkaline Phosphatase 67 U/L (40-130); Anion Gap 19.9 (5-19); Aspartate Amino Transferase 10 U/L (0-40); Blood Urea Nitrogen 19 mg/dL (8-23); Calcium 8.3 mg/dL (8.5-10.5); Carbon Dioxide 19 mmol/L (22-29); Chloride 106 mmol/L (98-107); Creatinine Clr Calc Pharmacy 57.7424; Globulin 2.9 g/dL (1.3-4.6); Glucose 178 mg/dL (65-115); Osmolality Calculated 299 mOsm/kg (285-295); Potassium 3.9 mmol/L (3.5-5.1); Sodium 141 mmol/L (136-145); Total Bilirubin 0.8 mg/dL (0.15-1.2)
[2024-04-25 10:27] LABS: Troponin(5th) Baseline 156 ng/L (0-15)
--- NOTE | 2024-04-25 11:42 | ECG_ITS ---
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 Measurements Intervals [place] Rate: 70 P: -48 CO: 200 QRS: -72 QRSD: 199 T: 0 QT: 443 QTc: 479 Interpretive Statements ELECTRONIC ATRIAL PACEMAKER ELECTRONIC VENTRICULAR PACEMAKER ABNORMAL RHYTHM ECG Compared to ECG 04/25/2024 09:32:05 ST (T wave) deviation no longer present Electronically Signed On 04-25-2024 12:39:53 CDT by Dell Beck M.D. [email or web address]
--- NOTE | 2024-04-25 11:42 | PM.HP ---
Providers/Chief Complaint Admitting Physician: Eligio Murphy MD Primary Care Provider: Vi Murphy MD Chief Complaint: AMS History of Present Illness Vijay Murcia is a 83 year old male who lives at assisted living who comes into the hospital after being found down in his room. Nobody witnessed this fall. When the nurses arrived he was responsive, and could smile and follow instructions but did not speak initially. He had not been ill lately. He did get oxycodone and Xanax last night prior to sleep. He has not had any vomiting or diarrhea at the facility, although he has not had diarrhea in the ER. Nursing at the facility reports stomach flu is going around with quite a bit of people with diarrhea and vomiting. He was recently in the hospital, on April 01 where his pacemaker generator was changed. Patient himself denies any chest pain, shortness of breath, cough, nausea, vomiting. He appears somewhat dazed, but is able to answer all questions. He reports a mild headache. In the emergency department there was concern about pneumonia so Rocephin and Zithromax were initiated. Initial troponin was high and troponin series was ordered. Review of Systems General: Reports: 10 or more systems reviewed and unremarkable except in HPI and below Card: Denies: chest pain Resp: Denies: dyspnea GI: Denies: abdominal pain, nausea, vomiting or hematochezia Medications/Allergies Home Medications Medication Instructions Recorded Confirmed Last Taken Type carbidopa 25 mg-levodopa 100 mg 1 tab PO TID 01/18/20 04/25/24 11/26/22 History tablet digoxin 125 mcg (0.125 mg) tablet 125 mcg PO QAM 01/18/20 04/25/24 11/26/22 History diltiazem HCl 180 mg 180 mg PO QAM 01/18/20 04/25/24 11/26/22 History capsule,extended release 24 hr donepezil 10 mg tablet 10 mg PO QPM 01/18/20 04/25/24 11/26/22 History duloxetine 60 mg capsule,delayed 60 mg PO QAM 01/18/20 04/25/24 11/26/22 History release gabapentin 600 mg tablet 600 mg PO BID 01/18/20 04/25/24 11/26/22 History metoprolol tartrate 25 mg tablet 25 mg PO BID 01/18/20 04/25/24 11/26/22 History oxycodone-acetaminophen 10 mg-325 1 tab PO Q6H PRN Pain 01/18/20 04/25/24 Unknown History mg tablet sennosides 8.6 mg capsule (senna) 8.6 mg PO BID PRN Constipation 01/18/20 04/25/24 Unknown History tamsulosin 0.4 mg capsule 0.4 mg PO QAM 01/18/20 04/25/24 11/26/22 History memantine 10 mg tablet 10 mg PO BID 03/14/21 04/25/24 11/26/22 History alprazolam 0.25 mg tablet 0.25 mg PO TID PRN Anxiety 09/04/22 04/25/24 11/26/22 History cetirizine 5 mg tablet (Allergy 5 mg PO DAILY PRN Allergy Symptoms 09/04/22 04/25/24 Unknown History Relief (cetirizine)) fluticasone propionate 50 1 spray intranasal DAILY 09/04/22 04/25/24 11/26/22 History mcg/actuation nasal spray,suspension (Allergy Relief (fluticasone)) lactulose 10 gram/15 mL oral 30 g PO QPM 09/04/22 04/25/24 11/26/22 History solution loperamide 2 mg capsule 4 mg PO Q6H PRN Constipation 09/04/22 04/25/24 Unknown History mecobalamin (vitamin B12) 1,000 1,000 mcg PO QAM 09/04/22 04/25/24 11/26/22 History mcg chewable tablet primidone 50 mg tablet 50 mg PO BID 09/04/22 04/25/24 11/26/22 History tetrahydrozoline 0.05 % eye drops 2 drp ophthalmic (eye) Q4H PRN Dry 09/04/22 04/25/24 Unknown History (Visine) Eye(S) menthol 4 % topical gel (Biofreeze 1 applic topical TID PRN Pain 11/26/22 04/25/24 Unknown History (menthol)) ipratropium 0.5 mg-albuterol 3 mg 3 ml inhalation Q4H PRN Shortness 03/15/23 04/25/24 Unknown History (2.5 mg base)/3 mL nebulization Of Breath soln acetaminophen 500 mg capsule 1,000 mg PO Q8H PRN Pain 09/13/23 04/25/24 Unknown History apixaban 5 mg tablet (Eliquis) 5 mg PO BID #60 tabs 04/01/24 04/25/24 Unknown Rx atorvastatin 10 mg tablet 10 mg PO DAILY 04/25/24 04/25/24 Unknown History cholecalciferol (vitamin D3) 25 50 mcg PO DAILY 04/25/24 04/25/24 Unknown History mcg (1,000 unit) tablet (Vitamin D3) cyclobenzaprine 5 mg tablet 5 mg PO BID 04/25/24 04/25/24 Unknown History pantoprazole 20 mg tablet,delayed 20 mg PO DAILY 04/25/24 04/25/24 Unknown History release sodium chloride 0.65 % nasal spray 2 spray intranasal Q4H PRN nasal 04/25/24 04/25/24 Unknown History aerosol dryness trazodone 50 mg tablet 50 mg PO BEDTIME 04/25/24 04/25/24 Unknown History Allergies Allergy/AdvReac Type Severity Reaction Status Date / Time galantamine [From Razadyne] Allergy Unknown Verified 04/25/24 06:11 Iodinated Contrast Media Allergy Unknown Verified 04/25/24 06:11 lactose Allergy Unknown Verified 04/25/24 06:11 PFSH Acute PFSH: Medical History (Updated 04/25/24 @ 12:30 by Eligio Murphy MD) Atrial fibrillation Parkinson disease Presence of cardiac pacemaker CAD (coronary artery disease) HTN (hypertension) Benign essential tremor Surgical History S/P CABG (coronary artery bypass graft) Family History Denies family history of Diabetes Cancer Stroke Social History Smoking and tobacco/nicotine status: never used tobacco/nicotine Alcohol intake: never Substance/Drug Use: never Vitals/I&O/Wt Last Vital Signs Temp 99.5 F 04/25/24 06:03 Pulse 79 04/25/24 10:30 Resp 16 04/25/24 06:32 BP 121/75 04/25/24 10:30 Pulse Ox 91 04/25/24 10:30 O2 Del Method Room Air 04/25/24 08:30 Weight last 48 hrs Weight 72.575 kg Physical Exam Narrative: General exam demonstrates a white male, who is somewhat hard of hearing, who is able to answer questions HEENT: Atraumatic and normocephalic. Pupils equally round. Oropharynx is clear Neck is supple no lymphadenopathy thyromegaly Cardiovascular regular rate and rhythm, 2/6 systolic murmur Lungs clear no wheezes or crackles Abdomen is soft. Nontender. No obvious organomegaly exams deferred Extremities no sinus clubbing edema, cap refill brisk Skin no rash Neuro no focal deficits. Data 04/25/24 09:50 04/25/24 09:50 Other Labs: MCV elevated at 107 Glucose elevated at 181 Calcium 8.3, albumin 4.1 LFTs normal Troponin 156 Urinalysis 0-4 0.0-4 reds Chest x-ray demonstrates right lower lobe infiltrate. Cardiomegaly. Pacemaker device. I reviewed this personally. Head CT no acute changes. I reviewed this personally EKG which I reviewed demonstrates a paced rhythm, atrial and ventricular pacemaker. A&P Assessment and plan (1) Pneumonia: Right lower lobe pneumonia noted Continue Rocephin and azithromycin Blood culture Sputum culture Note that oxygen level is borderline low and temperature is 99.5. Potential decompensation could occur. (2) Fall: Etiology of fall is not known Pacemaker interrogation CT head negative for acute findings. His neurologic exam is normal Check CK Differential diagnosis also includes polypharmacy or elevated digoxin level. Check digoxin level. Reduce Neurontin in half. Discontinue muscle relaxer. Discontinue Xanax. Lower pain medication dose. (3) Macrocytosis: Check B12 and folate (4) Hyperglycemia: Check hemoglobin A1c (5) Elevated troponin: Troponin significantly elevated Add aspirin to his regimen Continue statin, beta-quinten, Eliquis Check echocardiogram (6) Acute encephalopathy: Superimposed on chronic dementia. In visiting with nursing facility/assisted living nurse he is significantly different from his baseline. I suspect this is secondary to pneumonia, although may be multifactorial considering the medication he is on. Continue neurochecks Medication reduction as above. Plan Diarrhea. Check C. difficile History of recent pacemaker battery change Multiple other medical problems as outlined by past medical history Allow natural per his records Moises will suffice for DVT prophylaxis Attestations Medical Necessity Statement*: Will need greater than 2 midnight stay secondary to acute pneumonia, significant on x-ray associated with acute encephalopathy and significant weakness. Needs further workup of fall as well. Coding Level of Care Code Acute Code for [facility] Fwd Diagnoses Pneumonia J18.9 Fall W19.XXXA Macrocytosis D75.89 Hyperglycemia R73.9 Elevated troponin R79.89 Acute encephalopathy G93.40
[2024-04-25] MEDS: cefTRIAXone 2,000 MG in sodium chloride 0.9% (plus) 50 ML 100 MG IV (12:38)
[2024-04-25 12:52] LABS: Troponin 5 2HR 167.2 ng/L (0-15)
[2024-04-25 12:53] LABS: Troponin 5 2HR Delta 11.2 ABS# (0-10)
[2024-04-25 12:59] LABS: Creatine Phosphokinase 247 U/L (39-308)
[2024-04-25 13:02] LABS: Magnesium 1.7 mg/dL (1.7-2.3); Thyroid Stimulating Hormone 1.09 uIU/mL (0.27-4.20); Vitamin B12 1064 pg/mL (232-1245)
[2024-04-25 13:07] LABS: Folate Level 6.1 ng/mL (4.5-32.2)
[2024-04-25] MEDS: azithromycin 500 MG in sodium chloride 0.9% 250 ML 250 MG IV (13:17)
[2024-04-25 14:01] LABS: Estmated Average Glucose 126
--- NOTE | 2024-04-25 14:09 | USCV_ITS ---
Vijay Murcia Age: 83 Gender: M : 1940 Exam Date: 04/25/2024 14:52 Ordering Phys: Eligio Murphy MD Technologist: [place] [facility] [place]: nstemi BP: 123 / 72 HR: 80 Rhythm: Sinus Technical Quality: Adequate MEASUREMENTS (Male / Female) Normal Values 2D ECHO LV Diastolic Diameter PLAX 5.4 cm 4.2 - 5.9 / 3.9 - 5.3 cm IVS Diastolic Thickness 1.3 cm 0.6 - 1.0 / 0.6 - 0.9 cm IVS Systolic Thickness 1.8 cm LVPW Diastolic Thickness 1.1 cm 0.6 - 1.0 / 0.6 - 0.9 cm LVPW Systolic Thickness 1.8 cm LVOT Diameter 2.0 cm LV Ejection Fraction 2D Teich 56.6 % LV Ejection Fraction MOD 2C 66.2 % LV Ejection Fraction 2C AL 65.7 % LA Diameter 3.8 cm RA Systolic Volume 4C AL 158.0 ml RA Systolic Volume 4C MOD 150.0 ml LA Sys Volume AL 96.2 cm cubed LA Sys Volume Index AL 52.9 cm cubed/m squared Aorta at Sinotubular Diameter 3.1 cm M-MODE LA Ao Ratio MM 1.1 AV Cusp Separation MM 2.4 cm DOPPLER LVOT Peak Velocity 71.0 cm/s AV Area Cont Eq vti 1.6 cm squared AV Area Cont Eq pk 1.7 cm squared MV Peak Velocity 83.0 cm/s MV Area PHT 3.7 cm squared Mitral E to A Ratio 1.6 TV Peak Velocity 235.5 cm/s TR Peak Velocity 247.0 cm/s TR Peak Gradient 24.4 mmHg TV Peak E Velocity 84.0 cm/s Right Atrial Pressure 3.0 mmHg Pulmonary Artery Systolic Pressu 27.4 mmHg PV Peak Velocity 95.0 cm/s FINDINGS Left Ventricle Left ventricle is normal in size. LV systolic function is normal with EF of 50-55%. No regional wall motion abnormalities are seen. Right Ventricle Normal in size and function. Pacemaker lead is seen Right Atrium Severely dilated. Pacemaker lead is seen Left Atrium Normal in size Mitral Valve Grossly normal. Mild mitral regurgitation Aortic Valve Aortic valve is thickened. No significant stenosis. Mild aortic regurgitation. Tricuspid Valve Mild to moderate tricuspid regurgitation. Pulmonary artery systolic pressure is normal. Pulmonic Valve Mild pulmonic regurgitation. Pericardium Normal Aorta Ascending aorta is mildly dilated with diameter of 3.5cm IVC Appears to be normal CONCLUSIONS LV systolic function is normal with EF of 50-55% Severely dilated right atrium Mild mitral regurgitation Mild aortic regurgitation Mild to moderate tricuspid regurgitation Mild pulmonic regurgitation. Ascending aorta is mildly dilated with diameter of 3.5cm Compared to prior echocardiogram from 2019, LV systolic function has decreased slightly. Dell Beck MD (Electronically Signed) Final Date: 25 April 2024 17:39 S
--- NOTE | 2024-04-25 14:12 | PC.NURSE ---
Patient arrived to Med surg via stretcher. Patient is confused and only oriented to self. Does not know birthday, month, year, season, time, or place. Bed alarm has been placed for patient safety, increase staff presence, bed rails up x2.
[2024-04-25 14:40] LABS: Digoxin 0.5 ng/mL (0.6-1.2)
[2024-04-25] MEDS: carbidopa-levodopa 25-100mg Tablet 1 EACH PO ×2 (14:47→20:34)
[2024-04-25] MEDS: sodium chloride 0.9% 1,000 ML 75 ML IV (14:47)
[2024-04-25] MEDS: aspirin 81 mg EC Tablet PO (14:47)
--- NOTE | 2024-04-25 16:24 | ECG_ITS ---
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 Measurements Intervals [place] Rate: 73 P: 0 CA: 0 QRS: -39 QRSD: 134 T: -87 QT: 508 QTc: 561 Interpretive Statements ATRIAL FIBRILLATION LEFT AXIS DEVIATION [QRS AXIS < -30] INTRAVENTRICULAR CONDUCTION DELAY [130+ ms QRS DURATION] Compared to ECG 04/25/2024 11:42:12 Left-axis deviation now present Intraventricular conduction delay now present Atrial-paced complex(es) or rhythm no longer present Ventricular-paced complex(es) or rhythm no longer present Electronically Signed On 04-25-2024 16:44:16 CDT by Dell Beck M.D. [id number]
[2024-04-25 16:25] LABS: Troponin 5 6HR 148.8 ng/L (0-15); Troponin 5 6HR Delta -7.2 ng/L (0-12)
--- NOTE | 2024-04-25 16:57 | PC.NURSE ---
Patient has been too confused to answer admission questions. Only oriented to name.
[2024-04-25] MEDS: memantine 5 mg tablet 10 MG PO (18:10)
[2024-04-25] MEDS: primidone 50 mg Tablet PO (18:10)
[2024-04-25] MEDS: donepezil 5 MG Tablet 10 MG PO (18:11)
[2024-04-25] MEDS: gabapentin 300 mg Capsule PO (18:11)
[2024-04-25] MEDS: metoprolol tartrate 25 mg Tablet PO (18:11)
[2024-04-25] MEDS: apixaban 5 mg Tablet PO (18:11)
[2024-04-25] MEDS: trazodone 50 mg Tablet PO (20:34)
[2024-04-26] VITALS (10 sets, daily range): BP systolic 117–142; BP diastolic 63–93; PULSE 69–73; RESP 16–18; TEMP 36.4–37.1; O2SAT 91–95
[2024-04-26] MEDS: sodium chloride 0.9% 1,000 ML 75 ML IV ×2 (03:58→20:33)
[2024-04-26] MEDS: dilTIAZem ER (24HR) 180 mg Capsule PO (05:07)
[2024-04-26] MEDS: digoxin 125 mcg Tablet PO (05:07)
[2024-04-26] MEDS: duloxetine 60 mg Capsule PO (05:08)
[2024-04-26] MEDS: tamsulosin 0.4 mg Capsule 0.400000000000000022 MG PO (05:08)
[2024-04-26 05:44] LABS: Basophils % 0.1 %; Eosinophils % 0.2 %; Hematocrit 33.1 % (37-53); Lymphocytes # 0.9 10^3/uL (0.8-4.8); Lymphocytes % 9.7 %; Mean Corpuscular HGB Conc 33.2 g/dL (30-55); Mean Corpuscular Hemoglobin 35.3 pg (27-33); Mean Corpuscular Volume 106.1 fl (82-101); Mean Platelet Volume 9.7 fL (7.4-10.4); Monocytes # 0.8 10^3/uL (0.2-0.9); Monocytes % 8.6 %; Neutrophils # 7.79 10^3/uL (1.8-7.7); Neutrophils % 81.1 %; Nucleated Red Blood Cells % 0 %; Platelet Count 149 10^3/cmm (157-399); Red Blood Count 3.12 10^6/uL (3.85-5.65); Red Cell Distribution Width 13.8 % (12.1-15.1); White Blood Count 9.61 10^3/uL (3.29-11.43)
[2024-04-26 06:07] LABS: Alanine Aminotransferase 9 U/L (0-41); Albumin Level 3.4 g/dL (3.5-5.2); Alkaline Phosphatase 52 U/L (40-130); Aspartate Amino Transferase 15 U/L (0-40); Blood Urea Nitrogen 21 mg/dL (8-23); Calcium 7.6 mg/dL (8.5-10.5); Carbon Dioxide 20 mmol/L (22-29); Chloride 104 mmol/L (98-107); Creatinine Clr Calc Pharmacy 71.0302; Globulin 2.7 g/dL (1.3-4.6); Glucose 108 mg/dL (65-115); Magnesium 1.7 mg/dL (1.7-2.3); Osmolality Calculated 288 mOsm/kg (285-295); Sodium 137 mmol/L (136-145); Total Bilirubin 0.7 mg/dL (0.15-1.2); Total Protein 6.1 g/dL (6.6-8.7)
[2024-04-26] MEDS: potassium chloride ER 20 mEq Tablet 40 MEQ PO (09:12)
[2024-04-26] MEDS: atorvastatin 40 mg Tablet 20 MG PO (09:13)
[2024-04-26] MEDS: aspirin 81 mg EC Tablet PO (09:14)
[2024-04-26] MEDS: carbidopa-levodopa 25-100mg Tablet 1 EACH PO ×3 (09:14→20:33)
[2024-04-26] MEDS: gabapentin 300 mg Capsule PO ×2 (09:14→17:33)
[2024-04-26] MEDS: memantine 5 mg tablet 10 MG PO ×2 (09:14→17:33)
[2024-04-26] MEDS: metoprolol tartrate 25 mg Tablet PO ×2 (09:14→17:33)
[2024-04-26] MEDS: pantoprazole DR 40 mg Tablet PO (09:14)
[2024-04-26] MEDS: primidone 50 mg Tablet PO ×2 (09:14→17:33)
[2024-04-26] MEDS: apixaban 5 mg Tablet PO ×2 (09:14→17:33)
[2024-04-26] MEDS: azithromycin 500 MG in sodium chloride 0.9% 250 ML 250 MG IV (11:54)
[2024-04-26] MEDS: cefTRIAXone 1,000 MG in sodium chloride 0.9% (plus) 50 ML 100 MG IV (11:55)
--- NOTE | 2024-04-26 14:08 | P.PN_ITS ---
Subjective 2 Subjective: Here is on a good conversation this morning. States he has a little bit of a headache, but he always does. Still having diarrhea. Medications: Reviewed: Yes Vitals/I&O/Wt Last Vital Signs Temp 97.6 F 04/26/24 11:14 Pulse 69 04/26/24 11:14 Resp 18 04/26/24 11:14 BP 131/71 04/26/24 11:14 Pulse Ox 92 04/26/24 11:14 O2 Del Method Room Air 04/26/24 11:14 04/25/24 04/26/24 04/26/24 22:59 06:59 14:59 Intake Total 240 / 1540 988.75 / 2528.75 360 / 360 Balance 240 / 1540 988.75 / 2528.75 360 / 360 Weight last 48 hrs Weight 69.57 kg Weight 72.575 kg Weight 72.575 kg Physical Exam 2 Narrative: General exam no distress, much more conversant Neck is supple no lymphadenopathy thyromegaly Cardiovascular regular rate and rhythm, 2/6 systolic murmur Lungs clear no wheezes or crackles Abdomen is soft. Nontender. No obvious organomegaly exams deferred Extremities no sinus clubbing edema, cap refill brisk Data 04/26/24 05:33 04/26/24 05:33 Micro: Microbiology 04/25/24 12:14 Blood Culture - Preliminary Blood NEGATIVE TO DATE 04/25/24 11:16 Blood Culture - Preliminary Blood NEGATIVE TO DATE A&P Assessment and plan (1) Pneumonia: Right lower lobe pneumonia noted Continue Rocephin and azithromycin Await blood and sputum cultures Currently not requiring oxygen (2) Fall: Etiology of fall is not known Pacemaker interrogation has been completed. He has some significant arrhythmias detected by his device, tacky arrhythmias. Will have cardiology review and make recommendations. Continue telemetry. CT head negative for acute findings. His neurologic exam is normal CK was checked and not elevated Differential diagnosis also includes polypharmacy or elevated digoxin level. Digoxin level not elevated. Multiple medications lowered, or discontinued. (3) Macrocytosis: B12 folate were checked and normal (4) Hyperglycemia: A1c normal (5) Elevated troponin: Troponin significantly elevated Continue aspirin Continue statin, beta-quinten, Eliquis Echo demonstrates EF around 50%. Will consult cardiology. (6) Acute encephalopathy: Superimposed on chronic dementia. In visiting with nursing facility/assisted living nurse he is significantly different from his baseline. I suspect this is secondary to pneumonia, although may be multifactorial considering the medication he is on. Continue neurochecks Medication reduction as above. I believe this is resolved. Plan Diarrhea. C. difficile and stool culture pending Hypokalemia, supplement and recheck tomorrow History of recent pacemaker battery change Multiple other medical problems as outlined by past medical history Allow natural per his records Eliquis will suffice for DVT prophylaxis Attestations 2 Medical Necessity Statement*: Needs continued hospital stay for evaluation of tachyarrhythmias, correction of electrolyte imbalance, continuation of IV antibiotics for pneumonia Diagnoses Pneumonia J18.9 Fall W19.XXXA Macrocytosis D75.89 Hyperglycemia R73.9 Elevated troponin R79.89 Acute encephalopathy G93.40 Time Spent (min) 25
[2024-04-26 14:56] LABS: C.Diff PCR (Lab) NEGATIVE (Negative)
--- NOTE | 2024-04-26 17:01 | P.CONIM_ITS ---
Providers/Reason For Consult 2 Consulting Physician/Specialty*: Dell Beck MD/ Cardiology Reason for Consult*: Fall/ troponin elevation Requesting Physician: Dr Murphy Attending Physician: Eligio Murphy MD Primary Care Provider: Vi Murphy MD History of Present Illness History of Present Illness Vijay Murcia is a 83 year old male with past medical history of atrial fibrillation, CABG, pacemaker in place who was found down yesterday at assisted living. He was responsive. Appeared confused. Pacemaker check demonstrates several episodes of atrial fibrillation with RVR manager culture yesterday around 5 AM. Heart rates close to 240-250 were noted but lasted upto 30 seconds. Time when he was found was reported to be around 7 to 8 AM. He has dementia. He denies complaints of chest pain or shortness of breath at this time. His initial troponin was elevated to 156 that at 6 hours trended down to 148. EKG showed paced rhythm however ST depressions and T wave inversions were seen in the anterolateral leads. He is also getting treatment for possible penumonia. Echo was performed that showed LV systolic function is normal with EF 50 to 55%. Review of Systems 2 General: Reports: 10 or more systems reviewed and unremarkable except in HPI and below Card: Denies: chest pain Resp: Denies: dyspnea GI: Denies: abdominal pain, nausea, vomiting or hematochezia Medications/Allergies Home Medications Medication Instructions Recorded Confirmed Last Taken Type carbidopa 25 mg-levodopa 100 mg 1 tab PO TID 01/18/20 04/25/24 11/26/22 History tablet digoxin 125 mcg (0.125 mg) tablet 125 mcg PO QAM 01/18/20 04/25/24 11/26/22 History diltiazem HCl 180 mg 180 mg PO QAM 01/18/20 04/25/24 11/26/22 History capsule,extended release 24 hr donepezil 10 mg tablet 10 mg PO QPM 01/18/20 04/25/24 11/26/22 History duloxetine 60 mg capsule,delayed 60 mg PO QAM 01/18/20 04/25/24 11/26/22 History release gabapentin 600 mg tablet 600 mg PO BID 01/18/20 04/25/24 11/26/22 History metoprolol tartrate 25 mg tablet 25 mg PO BID 01/18/20 04/25/24 11/26/22 History oxycodone-acetaminophen 10 mg-325 1 tab PO Q6H PRN Pain 01/18/20 04/25/24 Unknown History mg tablet sennosides 8.6 mg capsule (senna) 8.6 mg PO BID PRN Constipation 01/18/20 04/25/24 Unknown History tamsulosin 0.4 mg capsule 0.4 mg PO QAM 01/18/20 04/25/24 11/26/22 History memantine 10 mg tablet 10 mg PO BID 03/14/21 04/25/24 11/26/22 History alprazolam 0.25 mg tablet 0.25 mg PO TID PRN Anxiety 09/04/22 04/25/24 11/26/22 History cetirizine 5 mg tablet (Allergy 5 mg PO DAILY PRN Allergy Symptoms 09/04/22 04/25/24 Unknown History Relief (cetirizine)) fluticasone propionate 50 1 spray intranasal DAILY 09/04/22 04/25/24 11/26/22 History mcg/actuation nasal spray,suspension (Allergy Relief (fluticasone)) lactulose 10 gram/15 mL oral 30 g PO QPM 09/04/22 04/25/24 11/26/22 History solution loperamide 2 mg capsule 4 mg PO Q6H PRN Constipation 09/04/22 04/25/24 Unknown History mecobalamin (vitamin B12) 1,000 1,000 mcg PO QAM 09/04/22 04/25/24 11/26/22 History mcg chewable tablet primidone 50 mg tablet 50 mg PO BID 09/04/22 04/25/24 11/26/22 History tetrahydrozoline 0.05 % eye drops 2 drp ophthalmic (eye) Q4H PRN Dry 09/04/22 04/25/24 Unknown History (Visine) Eye(S) menthol 4 % topical gel (Biofreeze 1 applic topical TID PRN Pain 11/26/22 04/25/24 Unknown History (menthol)) ipratropium 0.5 mg-albuterol 3 mg 3 ml inhalation Q4H PRN Shortness 03/15/23 04/25/24 Unknown History (2.5 mg base)/3 mL nebulization Of Breath soln acetaminophen 500 mg capsule 1,000 mg PO Q8H PRN Pain 09/13/23 04/25/24 Unknown History apixaban 5 mg tablet (Eliquis) 5 mg PO BID #60 tabs 04/01/24 04/25/24 Unknown Rx atorvastatin 10 mg tablet 10 mg PO DAILY 04/25/24 04/25/24 Unknown History cholecalciferol (vitamin D3) 25 50 mcg PO DAILY 04/25/24 04/25/24 Unknown History mcg (1,000 unit) tablet (Vitamin D3) cyclobenzaprine 5 mg tablet 5 mg PO BID 04/25/24 04/25/24 Unknown History pantoprazole 20 mg tablet,delayed 20 mg PO DAILY 04/25/24 04/25/24 Unknown History release sodium chloride 0.65 % nasal spray 2 spray intranasal Q4H PRN nasal 04/25/24 04/25/24 Unknown History aerosol dryness trazodone 50 mg tablet 50 mg PO BEDTIME 04/25/24 04/25/24 Unknown History Allergies Allergy/AdvReac Type Severity Reaction Status Date / Time galantamine [From Razadyne] Allergy Unknown Verified 04/25/24 06:11 Iodinated Contrast Media Allergy Unknown Verified 04/25/24 06:11 lactose Allergy Unknown Verified 04/25/24 06:11 Current Medications Generic Name Dose Route Start Last Admin Trade Name Freq PRN Reason Stop Dose Admin Apixaban 5 mg 04/25/24 18:00 04/26/24 09:14 Apixaban 5 Mg Tablet PO 5 mg BID FLEX Administration Aspirin 81 mg 04/25/24 14:09 04/26/24 09:14 Aspirin 81 Mg Ec Tablet PO 81 mg DAILY FLEX Administration Atorvastatin Calcium 20 mg 04/26/24 09:00 04/26/24 09:13 Atorvastatin 40 Mg Tablet PO 20 mg DAILY FLEX Administration Carbidopa/Levodopa 1 each 04/25/24 15:00 04/26/24 15:54 Carbidopa-Levodopa 25-100mg Tablet PO 1 each TID FLEX Administration Digoxin 125 mcg 04/26/24 06:00 04/26/24 05:07 Digoxin 125 Mcg Tablet PO 125 mcg QAM FLEX Administration Diltiazem HCl 180 mg 04/26/24 06:00 04/26/24 05:07 Diltiazem Er (24hr) 180 Mg Capsule PO 180 mg QAM FLEX Administration Donepezil HCl 10 mg 04/25/24 18:00 04/25/24 18:11 Donepezil 5 Mg Tablet PO 10 mg QPM FLEX Administration Duloxetine HCl 60 mg 04/26/24 06:00 04/26/24 05:08 Duloxetine 60 Mg Capsule PO 60 mg QAM FLEX Administration Gabapentin 300 mg 04/25/24 18:00 04/26/24 09:14 Gabapentin 300 Mg Capsule PO 300 mg BID FLEX Administration Sodium Chloride 1,000 mls @ 50 mls/hr 04/25/24 14:09 04/26/24 03:58 Sodium Chloride 0.9% IV 75 mls/hr .Q20H FLEX Administration Ceftriaxone Sodium 1,000 mg/ 50 mls @ 100 mls/hr 04/26/24 11:00 04/26/24 11:55 Sodium Chloride IV 100 mls/hr Q24H FLEX Administration Protocol Azithromycin 500 mg/ Sodium 250 mls @ 250 mls/hr 04/26/24 11:00 04/26/24 11:54 Chloride IV 250 mls/hr Q24H FLEX Administration Protocol Memantine 10 mg 04/25/24 18:00 04/26/24 09:14 Memantine 5 Mg Tablet PO 10 mg BID FLEX Administration Metoprolol Tartrate 25 mg 04/25/24 18:00 04/26/24 09:14 Metoprolol Tartrate 25 Mg Tablet PO 25 mg BID FLEX Administration Pantoprazole Sodium 40 mg 04/26/24 09:00 04/26/24 09:[address] 40 Mg Tablet PO 40 mg DAILY FLEX Administration Primidone 50 mg 04/25/24 18:00 04/26/24 09:14 Primidone 50 Mg Tablet PO 50 mg BID FLEX Administration Tamsulosin HCl 0.4 mg 04/26/24 06:00 04/26/24 05:08 Tamsulosin 0.4 Mg Capsule PO 0.4 mg QAM FLEX Administration Trazodone HCl 50 mg 04/25/24 21:00 04/25/24 20:34 Trazodone 50 Mg Tablet PO 50 mg BEDTIME FLEX Administration PFSH Acute 2 PFSH: Medical History Atrial fibrillation Parkinson disease Presence of cardiac pacemaker CAD (coronary artery disease) HTN (hypertension) Benign essential tremor Surgical History S/P CABG (coronary artery bypass graft) Family History Denies family history of Diabetes Cancer Stroke Social History Smoking and tobacco/nicotine status: never used tobacco/nicotine Alcohol intake: never Substance/Drug Use: never Vitals/I&O/Wt Last Vital Signs Temp 98.3 F 04/26/24 16:00 Pulse 71 04/26/24 16:00 Resp 17 04/26/24 16:00 BP 142/79 04/26/24 16:00 Pulse Ox 94 04/26/24 16:00 O2 Del Method Room Air 04/26/24 16:00 04/26/24 04/26/24 04/26/24 06:59 14:59 22:59 Intake Total 988.75 / 2528.75 360 / 360 Balance 988.75 / 2528.75 360 / 360 Weight last 48 hrs Weight 153 lb 6 oz Weight 160 lb Weight 160 lb Physical Exam 2 Narrative: GENERAL: Patient is alert NECK: No jugular vein distension. [] HEENT: No cyanosis. No icterus. No pallor. [] HEART: Regular S1 and S2. No murmur, rub or gallop. [] LUNGS: Clear to auscultate bilaterally. [] CENTRAL NERVOUS SYSTEM: Grossly nonfocal. [] EXTREMITIES: Lower extremities with 1+ edema bilaterally. Data 04/27/24 06:16 04/27/24 06:16 Micro: Microbiology 04/25/24 12:14 Blood Culture - Preliminary Blood NEGATIVE TO DATE 04/25/24 11:16 Blood Culture - Preliminary Blood NEGATIVE TO DATE A&P Assessment and plan (1) Atrial fibrillation: Qualifiers: Atrial fibrillation type: persistent (not longstanding) Qualified Code(s): I48.19 - Other persistent atrial fibrillation (2) Elevated troponin: (3) Presence of cardiac pacemaker: (4) CAD (coronary artery disease): Qualifiers: Coronary Disease-Associated Artery/Lesion type: [place] artery [place] vs. transplanted heart: [place] heart Associated angina: without angina Qualified Code(s): I25.10 - Atherosclerotic heart disease of [place] coronary artery without angina pectoris (5) HTN (hypertension): Qualifiers: Hypertension type: essential hypertension Qualified Code(s): I10 - Essential (primary) hypertension (6) Pneumonia: (7) Fall: (8) Acute encephalopathy: Plan Patient is symptom-free at this time. Difficult to determine if atrial fibrillation with RVR with heart rates going up to 230-240. Briefly caused the fall. Patient also has pneumonia. Currently heart rate is well-controlled. Will continue with current medications and monitor on telemetry. If has more episodes of A-fib RVR, can consider adding amiodarone Given troponin elevation and prior history of CAD, we will proceed with a stress test. Thank you for involving us with care of this patient. We will continue to follow. Please call with questions. Consult Attestations 2 Medical Necessity Statement: Care expected to cross 2 midnights. Coding Level of Care Code Acute Code for [facility] Fwd Diagnoses Persistent atrial fibrillation I48.19 Atrial fibrillation type: persistent (not longstanding) Elevated troponin R79.89 Presence of cardiac pacemaker Z95.0 Coronary artery disease involving [place] coronary artery of [place] heart without angina pectoris I25.10 Coronary Disease-Associated Artery/Lesion type: [place] artery [place] vs. transplanted heart: [place] heart Associated angina: without angina Essential hypertension I10 Hypertension type: essential hypertension Pneumonia J18.9 Fall W19.XXXA Acute encephalopathy G93.40
--- NOTE | 2024-04-26 17:28 | ECG_ITS ---
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 Interpretive Statements NAME OF STUDY: LEXISCAN SESTAMIBI STRESS TEST INDICATION: [Troponin Elevation] Procedure: At the baseline, the blood pressure was 139/85 mmHg with a heart rate of 73 bpm. The electrocardiogram showed paced rhythm. The Lexiscan was infused over a period of 20 seconds. A total of 0.4 mg of Lexiscan was infused. The stress phase was continued for a total of 5 minutes. Heart rate was at the end of stress phase was 77 bpm and a blood pressure of 149/76 mmHg. The EKG at the peak infusion revealed normal sinus rhythm with no significant ST-T wave changes. Sestamibi was injected 20 seconds after the Lexiscan infusion. Blood pressure at the end of recovery phase was 147/58 mmHg with a heart rate of 76 bpm. Conclusion: 1. Normal EKG response to Lexiscan infusion 2. No Lexiscan induced chest pain or cardiac arrhythmia. 3. Normal blood pressure and heart rate response. 4. Sestamibi/sestamibi perfusion scan pending; see separate report. Electronically Signed On 05-08-2024 8:57:30 CDT by Dell Beck M.D. [email or web address]
[2024-04-26] MEDS: donepezil 5 MG Tablet 10 MG PO (17:33)
[2024-04-26] MEDS: acetaminophen 325 mg Tablet 650 MG PO (20:32)
[2024-04-26] MEDS: trazodone 50 mg Tablet PO (20:33)
[2024-04-27] VITALS (13 sets, daily range): BP systolic 125–177; BP diastolic 68–86; PULSE 62–82; RESP 16–28; TEMP 36.4–37.3; O2SAT 94–95
[2024-04-27] MEDS: dilTIAZem ER (24HR) 180 mg Capsule PO (04:02)
[2024-04-27] MEDS: tamsulosin 0.4 mg Capsule 0.400000000000000022 MG PO (05:38)
[2024-04-27] MEDS: digoxin 125 mcg Tablet PO (05:38)
[2024-04-27] MEDS: duloxetine 60 mg Capsule PO (05:38)
[2024-04-27 06:24] LABS: Basophils % 0.1 %; Eosinophils # 0.1 10^3/uL (0.0-0.8); Eosinophils % 0.9 %; Hematocrit 33.1 % (37-53); Lymphocytes # 0.6 10^3/uL (0.8-4.8); Lymphocytes % 7.7 %; Mean Corpuscular HGB Conc 33.2 g/dL (30-55); Mean Corpuscular Hemoglobin 35.3 pg (27-33); Mean Corpuscular Volume 106.1 fl (82-101); Mean Platelet Volume 9.7 fL (7.4-10.4); Monocytes # 0.7 10^3/uL (0.2-0.9); Monocytes % 9.2 %; Neutrophils % 81.7 %; Nucleated Red Blood Cells % 0 %; Platelet Count 154 10^3/cmm (157-399); Red Blood Count 3.12 10^6/uL (3.85-5.65); Red Cell Distribution Width 13.5 % (12.1-15.1); White Blood Count 7.95 10^3/uL (3.29-11.43)
[2024-04-27 06:43] LABS: Alanine Aminotransferase 10 U/L (0-41); Albumin Level 3.4 g/dL (3.5-5.2); Alkaline Phosphatase 52 U/L (40-130); Anion Gap 14.4 (5-19); Aspartate Amino Transferase 17 U/L (0-40); Blood Urea Nitrogen 13 mg/dL (8-23); Calcium 8.4 mg/dL (8.5-10.5); Carbon Dioxide 21 mmol/L (22-29); Chloride 105 mmol/L (98-107); Creatinine Clr Calc Pharmacy 70.5211; Globulin 2.7 g/dL (1.3-4.6); Glucose 101 mg/dL (65-115); Magnesium 1.7 mg/dL (1.7-2.3); Osmolality Calculated 284 mOsm/kg (285-295); Potassium 3.4 mmol/L (3.5-5.1); Sodium 137 mmol/L (136-145); Total Bilirubin 0.8 mg/dL (0.15-1.2); Total Protein 6.1 g/dL (6.6-8.7)
[2024-04-27] MEDS: regadenoson 0.4 Mg/5 ml Syringe 0.400000000000000022 MG IVP (07:26)
[2024-04-27] MEDS: pantoprazole DR 40 mg Tablet PO (08:30)
[2024-04-27] MEDS: apixaban 5 mg Tablet PO ×2 (08:30→18:23)
[2024-04-27] MEDS: atorvastatin 40 mg Tablet 20 MG PO (08:30)
[2024-04-27] MEDS: memantine 5 mg tablet 10 MG PO ×2 (08:30→18:22)
[2024-04-27] MEDS: carbidopa-levodopa 25-100mg Tablet 1 EACH PO ×3 (08:30→19:58)
[2024-04-27] MEDS: potassium chloride ER 20 mEq Tablet 40 MEQ PO (08:30)
[2024-04-27] MEDS: aspirin 81 mg EC Tablet PO (08:30)
[2024-04-27] MEDS: metoprolol tartrate 25 mg Tablet PO ×2 (08:31→18:23)
[2024-04-27] MEDS: gabapentin 300 mg Capsule PO (08:31)
[2024-04-27] MEDS: primidone 50 mg Tablet PO ×2 (08:32→18:22)
--- NOTE | 2024-04-27 09:53 | P.PN_ITS ---
Subjective 2 Subjective: Patient has diarrhea. No chest pain. Vitals/I&O/Wt Last Vital Signs Temp 97.8 F 04/27/24 04:00 Pulse 62 04/27/24 07:57 Resp 18 04/27/24 04:00 BP 126/74 04/27/24 07:57 Pulse Ox 95 04/27/24 04:00 O2 Del Method Room Air 04/27/24 04:00 04/26/24 04/27/24 04/27/24 22:59 06:59 14:59 Intake Total 1659 480 / 2500 480 / 480 Balance 1659 480 / 2500 480 / 480 Weight last 48 hrs Weight 150 lb 7 oz Weight 153 lb 6 oz Weight 160 lb Physical Exam 2 Narrative: GENERAL: Patient is alert NECK: No jugular vein distension. [] HEENT: No cyanosis. No icterus. No pallor. [] HEART: Regular S1 and S2. No murmur, rub or gallop. [] LUNGS: Clear to auscultate bilaterally. [] CENTRAL NERVOUS SYSTEM: Grossly nonfocal. [] EXTREMITIES: Lower extremities with 1+ edema bilaterally. Data 04/27/24 06:16 04/27/24 06:16 Micro: Microbiology 04/25/24 12:14 Blood Culture - Preliminary Blood NEGATIVE TO DATE 04/25/24 11:16 Blood Culture - Preliminary Blood NEGATIVE TO DATE A&P Assessment and plan (1) Atrial fibrillation: Qualifiers: Atrial fibrillation type: persistent (not longstanding) Qualified Code(s): I48.19 - Other persistent atrial fibrillation (2) Elevated troponin: (3) Presence of cardiac pacemaker: (4) CAD (coronary artery disease): Qualifiers: Coronary Disease-Associated Artery/Lesion type: [place] artery [place] vs. transplanted heart: [place] heart Associated angina: without angina Qualified Code(s): I25.10 - Atherosclerotic heart disease of [place] coronary artery without angina pectoris (5) HTN (hypertension): Qualifiers: Hypertension type: essential hypertension Qualified Code(s): I10 - Essential (primary) hypertension (6) Pneumonia: (7) Fall: (8) Acute encephalopathy: Plan Patient is symptom-free at this time. Difficult to determine if atrial fibrillation with RVR with heart rates going up to 230-240 briefly caused the fall. Patient also has pneumonia. Has diarrhea. Infection and pneumonia may have triggered afib with RVR. Currently heart rate is well-controlled. Will continue with current medications and monitor on telemetry. If has more episodes of A-fib RVR, can consider adding amiodarone Stress test is showing prior infarct with no significant ischemia. Medical therapy Thank you for involving us with care of this patient. We will continue to follow. Please call with questions. Attestations 2 Medical Necessity Statement*: Care expected to cross 2 midnights. Coding Level of Care Code Acute Code for [facility] Fwd Diagnoses Persistent atrial fibrillation I48.19 Atrial fibrillation type: persistent (not longstanding) Elevated troponin R79.89 Presence of cardiac pacemaker Z95.0 Coronary artery disease involving [place] coronary artery of [place] heart without angina pectoris I25.10 Coronary Disease-Associated Artery/Lesion type: [place] artery [place] vs. transplanted heart: [place] heart Associated angina: without angina Essential hypertension I10 Hypertension type: essential hypertension Pneumonia J18.9 Fall W19.XXXA Acute encephalopathy G93.40
--- NOTE | 2024-04-27 11:17 | P.PN_ITS ---
Subjective 2 Subjective: Vijay reports she is doing a little bit better today. He underwent a nuclear stress test earlier this morning. Cardiology does not believe any medication needs to change at this time. He continues to have some loose stool. Medications: Reviewed: Yes Vitals/I&O/Wt Last Vital Signs Temp 98.8 F 04/27/24 11:07 Pulse 78 04/27/24 11:07 Resp 16 04/27/24 11:07 BP 150/78 04/27/24 11:07 Pulse Ox 94 04/27/24 10:40 O2 Del Method Room Air 04/27/24 10:40 04/26/24 04/27/24 04/27/24 22:59 06:59 14:59 Intake Total 1659 480 / 2500 480 / 480 Balance 1659 480 / 2500 480 / 480 Weight last 48 hrs Weight 68.237 kg Weight 69.57 kg Weight 72.575 kg Physical Exam 2 Narrative: General exam conversant Cardiovascular regular rate and rhythm, 2/6 systolic murmur Lungs clear no wheezes or crackles Abdomen is soft. Nontender. No obvious organomegaly Extremities no sinus clubbing edema, cap refill brisk Data 04/27/24 06:16 04/27/24 06:16 Micro: Microbiology 04/25/24 12:14 Blood Culture - Preliminary Blood NEGATIVE TO DATE 04/25/24 11:16 Blood Culture - Preliminary Blood NEGATIVE TO DATE A&P Assessment and plan (1) Pneumonia: Right lower lobe pneumonia noted Continue Rocephin and azithromycin Await blood and sputum cultures Currently not requiring oxygen (2) Fall: Etiology of fall is not known Pacemaker interrogation has been completed. He has some significant arrhythmias detected by his device, tacky arrhythmias. Cardiology has reviewed. They do not recommend additional medication changes at this time. CT head negative for acute findings. His neurologic exam is normal CK was checked and not elevated Differential diagnosis also includes polypharmacy or elevated digoxin level. Digoxin level not elevated. Multiple medications lowered, or discontinued. (3) Macrocytosis: B12 folate were checked and normal (4) Hyperglycemia: A1c normal (5) Elevated troponin: Troponin significantly elevated Continue aspirin Continue statin, beta-quinten, Eliquis Echo demonstrates EF around 50%. Appreciate cardiology consult Large areas of infarct seen on stress test but no reversible ischemia. (6) Acute encephalopathy: Superimposed on chronic dementia. In visiting with nursing facility/assisted living nurse he is significantly different from his baseline. I suspect this is secondary to pneumonia, although may be multifactorial considering the medication he is on. Continue neurochecks Medication reduction as above. Resolved. Plan Diarrhea. C. difficile negative and stool culture pending Hypokalemia, supplement again recheck tomorrow History of recent pacemaker battery change Multiple other medical problems as outlined by past medical history Allow natural per his records Eliquis will suffice for DVT prophylaxis Probable discharge to the apartments today. Continue IV antibiotics, await stool studies. Work with physical therapy today. Attestations 2 Medical Necessity Statement*: Needs continued hospitalization for IV antibiotics for pneumonia, close follow- up of arrhythmia. Possible discharge tomorrow. Diagnoses Pneumonia J18.9 Fall W19.XXXA Macrocytosis D75.89 Hyperglycemia R73.9 Elevated troponin R79.89 Acute encephalopathy G93.40 Time Spent (min) 25
[2024-04-27] MEDS: azithromycin 500 MG in sodium chloride 0.9% 250 ML 250 MG IV (12:36)
[2024-04-27] MEDS: cefTRIAXone 1,000 MG in sodium chloride 0.9% (plus) 50 ML 100 MG IV (12:38)
[2024-04-27] MEDS: OLANZapine 5 mg ODT PO (13:57)
--- NOTE | 2024-04-27 14:14 | PC.NURSE ---
Notified Dr. Murphy of patient being non-compliant. Patient pulled IV out while this nurse was at lunch. Patient refuses to have another IV insertion. Dr. Murphy ordered Zyprexa and giving the patient a couple hours to see if he settles down. Patient was fine this am before Stress test. Now patient thinks he is at a house and wants to get up and leave now. Industrial Cafeteria Manager notifed to proceed for [facility].
--- NOTE | 2024-04-27 17:28 | NMCV_ITS ---
NM angelica perf SPECT r/s* [id number] Vijay Murcia Age: 83 Gender: M : 1940 Exam Date: 04/27/2024 06:33 Ordering Phys: Dell Beck M.D ([email or web address]) Technologist: KENNETH Moreno Exam Location: [facility] Indications: CHEST PAIN STRESS TEST Please [facility] IMAGE PROTOCOL Rest/Stress 1 Lexiscan Day Radiopharmaceutical Dose (mCi) Administration Site Administered by Rest: Tc-99m 10.6 IV KENNETH Toribio Sestamibi Stress:Tc-99m 32.7 IV KENNETH Toribio Sestamibi Rest: 27-Apr-2024 60 Discovery 630 Stress: 27-Apr-2024 30 Discovery 630 0.4mg Lexiscan. Supine position only as patient was unable to lay prone. SPECT RESULTS Technical Quality: Excellent Raw Data Analysis: Normal Image Corrections: No attenuation or motion correction applied Summed Stress Score: 13 Summed Rest Score: 17 Summed Difference Score: 1 PERFUSION FINDINGS Large areas of fixed perfusion defect are seen in apical, apical inferior, apical lateral and inferolateral sanchez. This is consistent with large area of prior infarct in these territories. No evidence of ischemia. FUNCTIONAL RESULTS (calculated via Gated SPECT) Stress Image LV EF (%): 65 Stress EDV (mL):137 TID: 1 Stress ESV (mL):48 FUNCTIONAL FINDINGS: There is normal left ventricular systolic function. IMPRESSIONS 1. Large areas of prior infarct seen in apical, apical inferior, apical lateral and inferolateral sanchez. 2. LV systolic function is normal eDll Beck MD (Electronically Signed) Final Date: 27 April 2024 09:32 S
[2024-04-27] MEDS: oxyCODONE-APAP 5-325 mg Tablet 1 TAB PO (18:21)
[2024-04-27] MEDS: donepezil 5 MG Tablet 10 MG PO (18:25)
--- NOTE | 2024-04-27 19:12 | PC.NURSE ---
Patient has been more calm but still insist getting out of bed. Alarm has been on and alarm on zone
[2024-04-28] VITALS (7 sets, daily range): BP systolic 131–166; BP diastolic 69–79; PULSE 67–79; RESP 15–28; TEMP 36.8–37.4; O2SAT 93–96
[2024-04-28] MEDS: duloxetine 60 mg Capsule PO (05:42)
[2024-04-28] MEDS: tamsulosin 0.4 mg Capsule 0.400000000000000022 MG PO (05:42)
[2024-04-28] MEDS: digoxin 125 mcg Tablet PO (05:42)
[2024-04-28] MEDS: dilTIAZem ER (24HR) 180 mg Capsule PO (05:42)
[2024-04-28 06:33] LABS: Basophils % 0.3 %; Eosinophils # 0.1 10^3/uL (0.0-0.8); Eosinophils % 1.4 %; Hematocrit 33.4 % (37-53); Lymphocytes # 0.8 10^3/uL (0.8-4.8); Lymphocytes % 13.3 %; Mean Corpuscular HGB Conc 32.6 g/dL (30-55); Mean Corpuscular Hemoglobin 34.5 pg (27-33); Mean Corpuscular Volume 105.7 fl (82-101); Mean Platelet Volume 10.4 fL (7.4-10.4); Monocytes # 0.7 10^3/uL (0.2-0.9); Monocytes % 11.7 %; Neutrophils # 4.29 10^3/uL (1.8-7.7); Nucleated Red Blood Cells % 0 %; Platelet Count 171 10^3/cmm (157-399); Red Blood Count 3.16 10^6/uL (3.85-5.65); Red Cell Distribution Width 13.2 % (12.1-15.1); White Blood Count 5.88 10^3/uL (3.29-11.43)
[2024-04-28 07:00] LABS: Anion Gap 14.3 (5-19); Blood Urea Nitrogen 10 mg/dL (8-23); Calcium 8.4 mg/dL (8.5-10.5); Carbon Dioxide 20 mmol/L (22-29); Chloride 107 mmol/L (98-107); Creatinine Clr Calc Pharmacy 70.3588; Glucose 101 mg/dL (65-115); Magnesium 1.9 mg/dL (1.7-2.3); Osmolality Calculated 285 mOsm/kg (285-295); Potassium 3.3 mmol/L (3.5-5.1); Sodium 138 mmol/L (136-145)
--- NOTE | 2024-04-28 09:34 | P.DS_ITS ---
Discharge Providers Date of Admission: 04/25/24 11:49 Date of Discharge: April 28, 2024 Attending Provider at Admission: Eligio Murphy MD Attending Provider at Discharge: Eligio Murphy MD Primary Care Provider: Vi Murphy MD Diagnoses at Discharge Discharge Diagnosis (1) Atrial fibrillation: Status: Acute Qualifiers: Atrial fibrillation type: persistent (not longstanding) Qualified Code(s): I48.19 - Other persistent atrial fibrillation (2) Elevated troponin: Status: Acute (3) Presence of cardiac pacemaker: Status: Acute (4) CAD (coronary artery disease): Status: Acute Qualifiers: Associated angina: without angina Coronary Disease-Associated Artery/Lesion type: [place] artery [place] vs. transplanted heart: [place] heart Qualified Code(s): I25.10 - Atherosclerotic heart disease of [place] coronary artery without angina pectoris (5) HTN (hypertension): Status: Acute Qualifiers: Hypertension type: essential hypertension Qualified Code(s): I10 - Essential (primary) hypertension (6) Pneumonia: Status: Acute (7) Fall: Status: Acute (8) Acute encephalopathy: Status: Acute Reason for Visit Reason for Visit: [facility] Hospital Course Hospital Course Patient is an 83-year-old white male who presented to the hospital after an unwitnessed fall. He had acute encephalopathy, and was identified to have a right lower lobe pneumonia. Interrogation of his pacemaker demonstrated a significant tachyarrhythmia, narrow complex as well. Troponin showed significant elevation but not a concerning trend. Echo demonstrated an EF ar ound 50%. CT head negative. Polypharmacy identified and medication reduced. IV antibiotic started for pneumonia. Diarrhea present, which was related to be present in other members of his living [facility] at assisted living. C. difficile was negative. With antibiotic treatment he had some gradual improvement. A nuclear stress test was performed secondary to troponin elevation and arrhythmia which demonstrated no reversible ischemia. Cardiology did not believe medication changes would be needed at this time as arrhythmia was likely secondary to acute illness. By April 28 it was thought he could transition to the nursing facility secondary to weakness following fall. He has underlying dementia, and needs frequent redirection. There is concern in him going directly back to his assisted living that he will have a higher risk of falling and decompensation. He was given opportunity to ask questions, agreed with plan. Family agreed to nursing facility placement. He will finish up 7 more days of cefdinir for pneumonia. Physical Exam Narrative: General exam no distress Cardiovascular regular rate and rhythm Lungs clear Abdomen soft Extremities no cyanosis clubbing or edema Discharge Data Studies Completed and Pending Completed Studies During Hospitalization Category Date Time Status CT head wo con* [id number] Stat Cat Scan 04/25/24 06:27 Completed Sestamibi Stress Test Request Routine Exams 04/26/24 17:28 Draft XR chest 1V portable [id number] Stat Exams 04/25/24 09:04 Completed NM angelica perf SPECT r/s* [id number] Routine Nuc Med 04/27/24 17:28 Completed CV. echo complete* [id number] Routine Ultrasound 04/25/24 14:09 Completed Pending at discharge Category Date Time Status Blood Culture Stat Lab 04/25/24 11:16 Results Sputum Culture and Gram Stain Routine Lab 04/25/24 14:09 Uncollected Stool Culture - Enteric [Salmonella / Shigella / Campy] Lab 04/26/24 07:40 Received Routine Radiology Impressions Head CT 04/25/24 06:27 IMPRESSION: No acute intracranial abnormality. Chest X-Ray 04/25/24 09:04 IMPRESSION: Right basilar airspace opacity. This may represent infiltrate or atelectasis. Laboratory Results WBC 5.88 10^3/uL (3.29-11.43) 04/28/24 05:41 RBC 3.16 10^6/uL (3.85-5.65) L 04/28/24 05:41 Hgb 10.90 g/dL (11.27-16.99) L 04/28/24 05:41 Hct 33.4 % (37-53) L 04/28/24 05:41 MCV 105.7 fl (82-101) H 04/28/24 05:41 MCH 34.5 pg (27-33) H 04/28/24 05:41 MCHC 32.6 g/dL (30-55) 04/28/24 05:41 RDW 13.2 % (12.1-15.1) 04/28/24 05:41 Plt Count 171 10^3/cmm (157-399) 04/28/24 05:41 MPV 10.4 fL (7.4-10.4) 04/28/24 05:41 Neut % (Auto) 73.0 % 04/28/24 05:41 Lymph % (Auto) 13.3 % 04/28/24 05:41 [place] % (Auto) 11.7 % 04/28/24 05:41 Eos % (Auto) 1.4 % 04/28/24 05:41 Baso % (Auto) 0.3 % 04/28/24 05:41 Neut # (Auto) 4.29 10^3/uL (1.8-7.7) 04/28/24 05:41 Lymph # (Auto) 0.8 10^3/uL (0.8-4.8) 04/28/24 05:41 [place] # (Auto) 0.7 10^3/uL (0.2-0.9) 04/28/24 05:41 Eos # (Auto) 0.1 10^3/uL (0.0-0.8) 04/28/24 05:41 Baso # (Auto) 0.0 10^3/uL (0.0-0.1) 04/28/24 05:41 Nucleated RBC % (auto) 0 % 04/28/24 05:41 Nucleated RBCs # 0.0 /100WBC 04/28/24 05:41 Sodium 138 mmol/L (136-145) 04/28/24 05:41 Potassium 3.3 mmol/L (3.5-5.1) L 04/28/24 05:41 Chloride 107 mmol/L (98-107) 04/28/24 05:41 Carbon Dioxide 20 mmol/L (22-29) L 04/28/24 05:41 Anion Gap 14.3 (5-19) 04/28/24 05:41 BUN 10 mg/dL (8-23) 04/28/24 05:41 Creatinine 0.5 mg/dL (0.7-1.2) L 04/28/24 05:41 GFR Calculation Not Reportable 04/28/24 05:41 Glucose 101 mg/dL (65-115) 04/28/24 05:41 POC Glucose 181 mg/dL (70-110) H 04/25/24 06:39 Estimat Average Glucose 126 04/25/24 12:20 Hemoglobin A1c 6.0 % (4.0-6.0) 04/25/24 12:20 Calculated Osmolality 285 mOsm/kg (285-295) 04/28/24 05:41 Calcium 8.4 mg/dL (8.5-10.5) L 04/28/24 05:41 Magnesium 1.9 mg/dL (1.7-2.3) 04/28/24 05:41 Total Bilirubin 0.8 mg/dL (0.15-1.2) 04/27/24 06:16 AST 17 U/L (0-40) 04/27/24 06:16 ALT 10 U/L (0-41) 04/27/24 06:16 Alkaline Phosphatase 52 U/L (40-130) 04/27/24 06:16 Creatine Kinase 247 U/L (39-308) 04/25/24 12:20 Troponin T Baseline 156 ng/L (0-15) H* 04/25/24 09:50 Troponin T 120 Minute 167.2 ng/L (0-15) H 04/25/24 12:20 Delta Troponin T 11.2 ABS# (0-10) H* 04/25/24 12:20 Troponin T Hi Sens 6Hr 148.8 ng/L (0-15) H 04/25/24 15:50 Troponin T Hi Sens 6Hr Delta -7.2 ng/L (0-12) L 04/25/24 15:50 Total Protein 6.1 g/dL (6.6-8.7) L 04/27/24 06:16 Albumin 3.4 g/dL (3.5-5.2) L 04/27/24 06:16 Globulin 2.7 g/dL (1.3-4.6) 04/27/24 06:16 Vitamin B12 1064 pg/mL (232-1245) 04/25/24 12:20 Folate 6.1 ng/mL (4.5-32.2) 04/25/24 12:20 TSH 1.09 uIU/mL (0.27-4.20) 04/25/24 12:20 Urine Color Dark yellow (Yellow) 04/25/24 09:23 Urine Appearance Clear (CLEAR) 04/25/24 09:23 Urine pH 5 (5-7) 04/25/24 09:23 Ur Specific [place] 1.020 (1.005-1.030) 04/25/24 09:23 Urine Protein 1+ (Negative) H 04/25/24 09:23 Urine Glucose (UA) Norm (Normal) 04/25/24 09:23 Urine Ketones 1+ (Negative) H 04/25/24 09:23 Urine Blood 2+ (Negative) H 04/25/24 09:23 Urine Nitrate Negative (Negative) 04/25/24 09:23 Urine Bilirubin Neg (Negative) 04/25/24 09:23 Urine Urobilinogen Norm mg/dL (Negative) 04/25/24 09:23 Ur Leukocyte Esterase Trace (Negative) H 04/25/24 09:23 Urine RBC 0-4 /hpf (0-2) H 04/25/24 09:23 Urine WBC 0-4 /hpf (0-5) H 04/25/24 09:23 Ur Squamous Epith Cells 0-4 /hpf (0-5) H 04/25/24 09:23 Amorphous Sediment Not Reportable 04/25/24 09:23 Urine Bacteria Trace /hpf (NONE) 04/25/24 09:23 Hyaline Casts 5-10 /lpf H 04/25/24 09:23 Urine Mucus 3+ /hpf 04/25/24 09:23 Digoxin 0.5 ng/mL (0.6-1.2) L 04/25/24 12:20 C. difficile (PCR) Negative (Negative) 04/25/24 07:40 Vitals Last Vital Signs Temp 98.2 F 04/28/24 07:57 Pulse 76 04/28/24 07:57 Resp 15 04/28/24 07:57 BP 166/79 04/28/24 07:57 Pulse Ox 95 04/28/24 07:57 O2 Del Method Room Air 04/28/24 07:57 Discharge Plan Discharge Patient Disposition: Xfer SNF Condition: Stable Prescriptions: New oxycodone-acetaminophen 5-325 mg Tablet 1 tab PO Q6H PRN (Reason: Moderate Pain) Qty: 20 0RF atorvastatin 40 mg Tablet 20 mg PO DAILY Qty: 15 0RF aspirin 81 mg Tablet,Delayed Release (Dr/Ec) 81 mg PO DAILY Qty: 30 0RF gabapentin [Neurontin] 100 mg capsule 100 mg PO BID Qty: 60 0RF cefdinir 300 mg capsule 300 mg PO BID 7 Days Qty: 14 0RF Continued senna 8.6 mg capsule 8.6 mg PO BID PRN (Reason: Constipation) tamsulosin 0.4 mg capsule 0.4 mg PO QAM carbidopa-levodopa 25-100 mg tablet 1 tab PO TID duloxetine 60 mg capsule,delayed release(DR/EC) 60 mg PO QAM diltiazem HCl 180 mg capsule,extended release 24hr 180 mg PO QAM metoprolol tartrate 25 mg tablet 25 mg PO BID digoxin 125 mcg (0.125 mg) tablet 125 mcg PO QAM donepezil 10 mg tablet 10 mg PO QPM primidone 50 mg tablet 50 mg PO BID memantine 10 mg tablet 10 mg PO BID cetirizine [Allergy Relief (cetirizine)] 5 mg tablet 5 mg PO DAILY PRN (Reason: Allergy Symptoms) fluticasone propionate [Allergy Relief (fluticasone)] 50 mcg/actuation spray,suspension 1 spray intranasal DAILY Rx Instructions: administer into each nostril lactulose 10 gram/15 mL solution 30 g PO QPM loperamide 2 mg capsule 4 mg PO Q6H PRN (Reason: Constipation) tetrahydrozoline [Visine] 0.05 % drops 2 drp ophthalmic (eye) Q4H PRN (Reason: Dry Eye(S)) mecobalamin (vitamin B12) 1,000 mcg tablet,chewable 1,000 mcg PO QAM ipratropium-albuterol 0.5 mg-3 mg(2.5 mg base)/3 mL solution for nebulization 3 ml inhalation Q4H PRN (Reason: Shortness Of Breath) acetaminophen 500 mg capsule 1,000 mg PO Q8H PRN (Reason: Pain) Biofreeze (menthol) 4 % Gel 1 applic TOPICAL TID PRN (Reason: Pain) Eliquis 5 mg tablet 5 mg PO BID Qty: 60 5RF trazodone 50 mg tablet 50 mg PO BEDTIME atorvastatin 10 mg tablet 10 mg PO DAILY pantoprazole 20 mg tablet,delayed release (DR/EC) 20 mg PO DAILY [place] Nasal 0.65 % Aerosol,[place] 2 spray INTRANASAL Q4H PRN (Reason: nasal dryness) Vitamin D3 25 mcg (1,000 unit) Tablet 50 mcg PO DAILY Discontinued oxycodone-acetaminophen 10-325 mg tablet 1 tab PO Q6H PRN (Reason: Pain) gabapentin 600 mg tablet 600 mg PO BID alprazolam 0.25 mg tablet 0.25 mg PO TID PRN (Reason: Anxiety) cyclobenzaprine 5 mg tablet 5 mg PO BID Discharge Orders: Discharge Order (Routine); Ordered 04/28/24 Ordered By: Eligio Murphy Referrals: Vi Murphy MD [Primary Care Provider] - 4-7 days Sahil Choe MD [Physician] - 2 weeks Discharge Diet: Usual diet and Cardiac Discharge Activity: Increase activity as tolerated Activity Restrictions/Additional Instructions: Take your medicines as prescribed. Follow-up with your primary care provider in 3 to 5 days. Which concerns. Discharge Attestations Time Spent in Discharge Care*: greater than 30 min Quality Metrics Clinical Quality Measures [ No reported AMI, CVA or VTE this stay] Coding Level of Care Code 90598 Total time (in minutes) for Discharge: 39 Diagnoses Persistent atrial fibrillation I48.19 Atrial fibrillation type: persistent (not longstanding) Elevated troponin R79.89 Presence of cardiac pacemaker Z95.0 Coronary artery disease involving [place] coronary artery of [place] heart without angina pectoris I25.10 Associated angina: without angina Coronary Disease-Associated Artery/Lesion type: [place] artery [place] vs. transplanted heart: [place] heart Essential hypertension I10 Hypertension type: essential hypertension Pneumonia J18.9 Fall W19.XXXA Acute encephalopathy G93.40
[2024-04-28] MEDS: memantine 5 mg tablet 10 MG PO (09:52)
[2024-04-28] MEDS: aspirin 81 mg EC Tablet PO (09:52)
[2024-04-28] MEDS: atorvastatin 40 mg Tablet 20 MG PO (09:52)
[2024-04-28] MEDS: gabapentin 100 mg Capsule PO (09:53)
[2024-04-28] MEDS: carbidopa-levodopa 25-100mg Tablet 1 EACH PO (09:53)
[2024-04-28] MEDS: potassium chloride ER 20 mEq Tablet 40 MEQ PO (09:53)
[2024-04-28] MEDS: apixaban 5 mg Tablet PO (09:53)
[2024-04-28] MEDS: pantoprazole DR 40 mg Tablet PO (09:53)
[2024-04-28] MEDS: metoprolol tartrate 25 mg Tablet PO (09:53)
[2024-04-28] MEDS: primidone 50 mg Tablet PO (09:53)
[2024-04-28 11:04] LABS: SARS Covid-2 Antigen negative (Negative)
--- NOTE | 2024-04-28 12:01 | PC.NURSE ---
attempted to call report to [facility]. call went to voicemail
--- NOTE | 2024-04-28 12:42 | PC.NURSE ---
report called to Cindy VALLADARES at [phone]
--- NOTE | 2024-04-28 14:39 | PC.SOCIAL ---
IMM Update pg 2 of IMM updated and reviewed w/ patients guardian. Copy left @ bedside and copy dated, initialed and placed in chart.
== END 2024-04-28 13:44 | disposition skilled nursing facility (03) | DRG 194 ==
LOC: ER 09:57 → MEDSURG 12:35
PROVIDERS: Admitting Provider Internal Medicine; Emergency Provider Emergency Medicine; PCP Family Medicine; Visit Provider Internal Medicine
DX: J18.9 Pneumonia, unspecified organism (principal); G93.40 Encephalopathy, unspecified; I48.20 Chronic atrial fibrillation, unspecified; Z95.0 Presence of cardiac pacemaker; I25.10 Atherosclerotic heart disease of native coronary artery without angina pectoris; Z95.1 Presence of aortocoronary bypass graft; E87.6 Hypokalemia; I10 Essential (primary) hypertension; W19.XXXA Unspecified fall, initial encounter; R19.7 Diarrhea, unspecified; Z79.01 Long term (current) use of anticoagulants; G20.A1 Parkinson's disease without dyskinesia, without mention of fluctuations; F02.80 Dementia in other diseases classified elsewhere, unspecified severity, without behavioral disturbance, psychotic disturbance, mood disturbance, and anxiety; D75.89 Other specified diseases of blood and blood-forming organs; R73.9 Hyperglycemia, unspecified
CPT/HCPCS: 36415; 36416; 70450; 71045; 78452; 80048; 80053; 80162; 81001; 82550; 82607; 82746; 82962; 83036; 83735; 84443; 84484; 85025; 87040; 87045; 87426; 87427; 87449; 87493; 93005; 93017; 93306; 96365; 96366; 96367; 96375; 97116; 97161; 99285; A9500; G0378; J0456; J0696; J2785; J7030; J7050; J7120

== ENCOUNTER 2024-05-17 19:25 | Inpatient (IN) | payer MEDICARE, OTHER, SELFPAY ==
[2024-05-17 19:28] VITALS: BP 124/78; PULSE 70; RESP 18; TEMP 36.4; O2SAT 94; BMI 20.3
--- NOTE | 2024-05-17 19:45 | XRR_ITS ---
PROCEDURE INFORMATION: Exam: XR Right Hip Exam date and time: 05/17/2024 8:04 PM Age: 83 years old Clinical indication: Injury or trauma; Fall; Other: Pain; Additional info: Fall trauma pain TECHNIQUE: Imaging protocol: Radiologic exam of the right hip. Views: 1 view hip with pelvis when performed. COMPARISON: CT abdomen pelvis wo con [id number] 09/30/2022 6:19 PM FINDINGS: Bones/joints: Acute fracture through the base of the right femoral neck extends slightly into the greater trochanter. No dislocation. The bones are demineralized but the rami appear intact. Soft tissues: Unremarkable. Vasculature: Partially visualized IVC filter. XR/XR hip RT 2-3V wo/w pel* [id number] IMPRESSION: Acute fracture through the base of the right femoral neck/intertrochanteric region
--- NOTE | 2024-05-17 19:45 | CTR_ITS ---
PROCEDURE INFORMATION: Exam: CT Head Without Contrast Exam date and time: 05/17/2024 7:59 PM Age: 83 years old Clinical indication: Injury or trauma; Fall; Blunt trauma (contusions or hematomas); Additional info: Fall trauma TECHNIQUE: Imaging protocol: Computed tomography of the head without contrast. Radiation optimization: All CT scans at this facility use at least one of these dose optimization techniques: automated exposure control; mA and/or kV adjustment per patient size (includes targeted exams where dose is matched to clinical indication); or iterative reconstruction. COMPARISON: CT head wo con* [id number] 04/25/2024 6:47 AM RADIATION DOSE METRICS: Total DLP (mGy-cm): 1169 FINDINGS: Brain: Moderate diffuse cortical volume loss. Moderate hypodensities in supratentorial periventricular and subcortical white matter, consistent with microangiopathy. No intracranial hemorrhage. Physiologic calcifications in the basal ganglia. Cerebral ventricles: No ventriculomegaly. Paranasal sinuses: Visualized sinuses are unremarkable. No fluid levels. Mastoid air cells: Visualized mastoid air cells are well aerated. Orbital cavities: Prior cataract surgery. Bones: Unremarkable. No acute fracture. Soft tissues: Right parietal scalp contusion. Vasculature: No hyperdense artery. CT/CT head wo con* [id number] IMPRESSION: 1. No fracture or intracranial hemorrhage. 2. Right parietal scalp contusion.
--- NOTE | 2024-05-17 19:45 | XRR_ITS ---
PROCEDURE INFORMATION: Exam: XR Right Femur Exam date and time: 05/17/2024 8:07 PM Age: 83 years old Clinical indication: Injury or trauma; Fall; Other: Pain; Additional info: Fall pain TECHNIQUE: Imaging protocol: Radiologic exam of the right femur. Views: 2 views. COMPARISON: CR (PELVIS, ) 05/17/2024 8:04 PM FINDINGS: Bones/joints: Acute fracture through the base of the right femoral neck. The distal femur is intact. The right knee arthroplasty remains intact. Soft tissues: Unremarkable. Vasculature: Peripheral atherosclerosis. XR/XR femur RT min 2V* [id number] IMPRESSION: Acute fracture through the base of the femoral neck extends slightly into the intertrochanteric region
--- NOTE | 2024-05-17 19:45 | CTR_ITS ---
PROCEDURE INFORMATION: Exam: CT Cervical Spine Without Contrast Exam date and time: 05/17/2024 7:59 PM Age: 83 years old Clinical indication: Injury or trauma; Fall TECHNIQUE: Imaging protocol: Computed tomography of the cervical spine without contrast. Radiation optimization: All CT scans at this facility use at least one of these dose optimization techniques: automated exposure control; mA and/or kV adjustment per patient size (includes targeted exams where dose is matched to clinical indication); or iterative reconstruction. COMPARISON: CT cervical spin wo con* [id number] 09/30/2022 5:51 PM RADIATION DOSE METRICS: Total DLP (mGy-cm): 452 FINDINGS: Bones: Rightward cervical curvature. The vertebral body stature is maintained. No fracture. Trace degenerative anterior subluxation of C5 on C6. Severe disc space narrowing at C3-C4 through C6-C7 with degenerative endplate changes and mild spurring. Degenerative pannus surrounding the odontoid process. Hypertrophic degenerative facets. No significant central canal or foraminal stenosis identified. Lungs: Lung apices are normal. Vasculature: Bilateral carotid bulb calcifications. Soft tissues: Unremarkable. CT/CT cervical spin wo con* [id number] IMPRESSION: 1. No acute findings. 2. Curvature and degenerative changes of the cervical spine.
[2024-05-17 19:48] VITALS: BP 124/78; PULSE 71; O2SAT 96
--- NOTE | 2024-05-17 19:49 | ED_ITS ---
HPI - Extremity Problem 2 General: Chief complaint: Extremity Injury, Lower Stated complaint: fall Time Seen by Provider: 05/17/24 19:27 History of Present Illness: Patient presents to the ER by EMS from [facility], patient reports she fell from a standing position landing on his right hip. Patient also has a cut on the back of his head. Patient denies loss of consciousness. But he does not remember how he fell. EMS reports they gave him 200 mcg of fentanyl and 4 mg Zofran en route. Patient is on Eliquis for A-fib Review of Systems 2 General: Reports: 10 or more systems reviewed and unremarkable except in HPI and below PFSH ED 2 PFSH: Medical History (Updated 05/17/24 @ 21:40 by Edgard Frankel DO) Atrial fibrillation Parkinson disease Presence of cardiac pacemaker CAD (coronary artery disease) HTN (hypertension) Benign essential tremor Surgical History S/P CABG (coronary artery bypass graft) Family History Denies family history of Diabetes Cancer Stroke Social History Smoking and tobacco/nicotine status: never used tobacco/nicotine Alcohol intake: never Substance/Drug Use: never Physical Exam 2 Const: COMMON NORMALS: no acute distress, average body habitus, healthy appearing, alert and well nourished HENMT: COMMON NORMALS: normocephalic, hearing grossly normal bilaterally, external ears normal, Normal external nose present and moist oral mucous membranes; head/scalp not atraumatic (Laceration posterior scalp) HEAD & SCALP: n ormocephalic; not atraumatic (Laceration posterior scalp) NOSE: Normal external nose present EXTERNAL EAR: Yes external ears normal Eye: COMMON NORMALS: Equal, round and reactive pupils present, EOMs intact bilaterally, conjunctivae normal and no scleral icterus CONJUNCTIVA: Yes conjunctivae normal PUPIL: Yes Equal, round and reactive pupils present Neck/C-Spine: COMMON NORMALS: full ROM, no lymphadenopathy, supple, no meningeal signs, no JVD and Thyroid normal THYROID: Thyroid normal Chest: COMMONS NORMALS: normal inspection of the chest and normal palpation of entire chest wall Resp: COMMON NORMALS: normal respiratory effort, No retractions, No use of accessory muscles and clear to auscultation bilaterally AUSCULTATION: clear to auscultation bilaterally Cardio: COMMON NORMALS: no JVD, regular rate, regular rhythm, S1 normal heart sound present, S2 normal heart sound present, No gallops present (Cardio), No clicks present (Cardio), No murmurs present (Cardio) and No rub (Cardio) R ATE: regular rate RHYTHM: regular rhythm HEART SOUNDS: S1 normal heart sound present and S2 normal heart sound present GI: COMMON NORMALS: Normal to inspection, nondistended, normoactive bowel sounds present, Soft to palpation, non-tender, No hepatosplenomegaly present and no masses PALPATION: Yes Soft to palpation and Yes No hepatosplenomegaly present Extremity: NARRATIVE EXTREMITY EXAM: Tenderness to palpation over right hip region. No obvious crepitus or deformity. Neuro: SENSORIUM/ORIENTATION: Yes alert MENINGEAL SIGNS: Yes no meningeal signs Course 2 Vital Signs: Vital signs: Vital Signs Temperature 97.6 F 05/17/24 19:28 Pulse Rate 70 05/17/24 21:07 Respiratory Rate 18 05/17/24 19:28 Blood Pressure 118/71 05/17/24 21:07 Pulse Oximetry 99 05/17/24 21:07 Oxygen Delivery Me thod Room Air 05/17/24 19:48 Oxygen Flow Rate 4 05/17/24 19:28 MDM - Extremity (Nontraumatic) Medical Decision Making Head and neck CT, right femur, right hip and pelvis x-ray all were obtained all negative for acute issues other than a right femoral neck/intertrochanteric fracture. Dr. Hurst was consulted who said admit to the hospitalist, Dr. Arredondo was consulted who agreed to place the patient in patient for further evaluation and treatment. Differential Diagnosis Unlikely herpes zoster, gout, cellulitis, superficial thrombophlebitis, deep venous thrombosis of upper extremity, lower extremity edema or deep vein thrombosis of lower extremity Lab Data I reviewed the patient's lab results. 05/17/24 20:30 05/17/24 20:30 Radiology Impressions Cervical Spine CT 05/17/24 19:45 IMPRESSION: 1. No acute findings. 2. Curvature and degenerative changes of the cervical spine. Femur X-Ray 05/17/24 19:45 IMPRESSION: Acute fracture through the base of the femoral neck extends slightly into the intertrochanteric region Head CT 05/17/24 19:45 IMPRESSION: 1. No fracture or intracranial hemorrhage. 2. Right parietal scalp contusion. Hip/Pelvis X-Ray 05/17/24 19:45 IMPRESSION: Acute fracture through the base of the right femoral neck/intertrochanteric region Laboratory Results WBC 6.32 10^3/uL (3.29-11.43) 05/17/24 20:30 RBC 3.31 10^6/uL (3.85-5.65) L 05/17/24 20:30 Hgb 11.50 g/dL (11.27-16.99) 05/17/24 20:30 Hct 35.4 % (37-53) L 05/17/24 20:30 MCV 106.9 fl (82-101) H 05/17/24 20:30 MCH 34.7 pg (27-33) H 05/17/24 20:30 MCHC 32.5 g/dL (30-55) 05/17/24 20:30 RDW 13.6 % (12.1-15.1) 05/17/24 20:30 Plt Count 242 10^3/cmm (157-399) 05/17/24 20:30 MPV 9.1 fL (7.4-10.4) 05/17/24 20:30 Neut % (Auto) 69.7 % 05/17/24 20:30 Lymph % (Auto) 16.0 % 05/17/24 20:30 [place] % (Auto) 11.1 % 05/17/24 20:30 Eos % (Auto) 2.4 % 05/17/24 20:30 Baso % (Auto) 0.5 % 05/17/24 20:30 Neut # (Auto) 4.41 10^3/uL (1.8-7.7) 05/17/24 20:30 Lymph # (Auto) 1.0 10^3/uL (0.8-4.8) 05/17/24 20:30 [place] # (Auto) 0.7 10^3/uL (0.2-0.9) 05/17/24 20:30 Eos # (Auto) 0.2 10^3/uL (0.0-0.8) 05/17/24 20:30 Baso # (Auto) 0.0 10^3/uL (0.0-0.1) 05/17/24 20:30 Nucleated RBC % (auto) 0 % 05/17/24 20:30 Nucleated RBCs # 0.0 /100WBC 05/17/24 20:30 PT 17.60 SECONDS (12.1-14.9) H 05/17/24 20:30 INR 1.39 (0.8-1.2) H 05/17/24 20:30 Sodium 139 mmol/L (136-145) 05/17/24 20:30 Potassium 4.0 mmol/L (3.5-5.1) 05/17/24 20:30 Chloride 105 mmol/L (98-107) 05/17/24 20:30 Carbon Dioxide 24 mmol/L (22-29) 05/17/24 20:30 Anion Gap 14.0 (5-19) 05/17/24 20:30 BUN 19 mg/dL (8-23) 05/17/24 20:30 Creatinine 0.6 mg/dL (0.7-1.2) L 05/17/24 20:30 GFR Calculation Not Reportable 05/17/24 20:30 Glucose 129 mg/dL (65-115) H 05/17/24 20:30 Calculated Osmolality 292 mOsm/kg (285-295) 05/17/24 20:30 Calcium 8.7 mg/dL (8.5-10.5) 05/17/24 20:30 Total Bilirubin 0.5 mg/dL (0.15-1.2) 05/17/24 20:30 AST 13 U/L (0-40) 05/17/24 20:30 ALT 15 U/L (0-41) 05/17/24 20:30 Alkaline Phosphatase 85 U/L (40-130) 05/17/24 20:30 Total Protein 6.7 g/dL (6.6-8.7) 05/17/24 20:30 Albumin 3.9 g/dL (3.5-5.2) 05/17/24 20:30 Globulin 2.8 g/dL (1.3-4.6) 05/17/24 20:30 All radiology interpretation(s) finalized by discharge Discharge Plan Discharge Patient Disposition: Admitted As Inpatient Clinical Impression: Closed fracture of right hip, Atrial fibrillation, Fall, Chronic anticoagulation Condition: Stable Coding Level of Care Code ED Inspector Soldering for Ct Sarkar
[2024-05-17 20:53] LABS: Basophils % 0.5 %; Eosinophils # 0.2 10^3/uL (0.0-0.8); Eosinophils % 2.4 %; Hematocrit 35.4 % (37-53); Mean Corpuscular HGB Conc 32.5 g/dL (30-55); Mean Corpuscular Hemoglobin 34.7 pg (27-33); Mean Corpuscular Volume 106.9 fl (82-101); Mean Platelet Volume 9.1 fL (7.4-10.4); Monocytes # 0.7 10^3/uL (0.2-0.9); Monocytes % 11.1 %; Neutrophils # 4.41 10^3/uL (1.8-7.7); Neutrophils % 69.7 %; Nucleated Red Blood Cells % 0 %; Platelet Count 242 10^3/cmm (157-399); Red Blood Count 3.31 10^6/uL (3.85-5.65); Red Cell Distribution Width 13.6 % (12.1-15.1); White Blood Count 6.32 10^3/uL (3.29-11.43)
--- NOTE | 2024-05-17 20:59 | PC.NURSE ---
Assumed care from Autumn CHILD at this time.
[2024-05-17 21:05] LABS: INR 1.39 (0.8-1.2)
[2024-05-17 21:07] VITALS: BP 118/71; PULSE 70; O2SAT 99
[2024-05-17 21:16] LABS: Alanine Aminotransferase 15 U/L (0-41); Albumin Level 3.9 g/dL (3.5-5.2); Alkaline Phosphatase 85 U/L (40-130); Aspartate Amino Transferase 13 U/L (0-40); Blood Urea Nitrogen 19 mg/dL (8-23); Calcium 8.7 mg/dL (8.5-10.5); Carbon Dioxide 24 mmol/L (22-29); Chloride 105 mmol/L (98-107); Creatinine Clr Calc Pharmacy 70.4455; Globulin 2.8 g/dL (1.3-4.6); Glucose 129 mg/dL (65-115); Osmolality Calculated 292 mOsm/kg (285-295); Sodium 139 mmol/L (136-145); Total Bilirubin 0.5 mg/dL (0.15-1.2); Total Protein 6.7 g/dL (6.6-8.7)
[2024-05-17 21:40] LABS: Digoxin 0.8 ng/mL (0.6-1.2)
--- NOTE | 2024-05-17 22:22 | PC.NURSE ---
Report called to BLAINE Paige on [place]. All questions and concerns were addressed at time of report.
[2024-05-17] MEDS: fentaNYL 50 mcg/mL INJ 2mL IVP (22:27)
[2024-05-17 22:28] VITALS: BP 125/69; PULSE 70; RESP 16; O2SAT 96
[2024-05-17 23:03] VITALS: BMI 20.2
[2024-05-18] VITALS (24 sets, daily range): BP systolic 136–171; BP diastolic 60–91; PULSE 70–89; RESP 15–20; TEMP 36.1–37.6; O2SAT 90–99
--- NOTE | 2024-05-18 00:53 | P.HP_ITS ---
Providers/Chief Complaint 2 Admitting Physician: Edwige Arredondo MD Primary Care Provider: Vi Murphy MD Chief Complaint: fall History of Present Illness Vijay Murcia is a 83 year old male with a past medical history of dementia history of PPM, A-fib, hypertension, dyslipidemia who was brought to the emergency room today with chief complaints of mechanical fall which resulted in a fracture of his right hip. He denies any loss of consciousness. He did suffer head injury and laceration as a result of this fall been sutured in the emergency room. CT head is negative for any intracranial bleeding. Recent history is notable for admission here on April 28, 2024 for pneumonia and encephalopathy as a result of infection. On this last admission patient was noted to have a significant tachyarrhythmia with elevated troponins. He improved with treatment with IV antibiotics. Stress test was performed on his last admission which demonstrated no reversible ischemia. He was evaluated by cardiology. Troponin leak. To be related to SVT and less likely to be ACS. Review of Systems 2 General: Reports: 10 or more systems reviewed and unremarkable except in HPI and below Const: Denies: fever(s), chills or body aches Eyes: Denies: change in vision, blurry vision or photophobia ENMT: Reports: hoarseness; Denies: throat pain, enlarged tonsils, odynophagia or nasal congestion Card: Denies: chest pain, palpitations, irregular heart rhythm, edema, swelling of feet/ankles, lightheadedness, pre-syncope, dyspnea on exertion or orthopnea Resp: Denies: dyspnea, productive cough, non-productive cough, wheezing, stridor, pain on inspiration, change in phlegm color, hemoptysis or chest congestion GI: Denies: abdominal pain, nausea, vomiting, hematemesis, coffee ground emesis, dysphagia, heartburn, diarrhea, constipation, GI cramping, change in stool character, hematochezia or melena : Denies: flank pain, dysuria, urinary frequency, urinary urgency, urinary hesitancy or hematuria Musc: Denies: neck pain, back pain, extremity pain, joint swelling, joint warmth or deformity Neuro: Denies: headache(s), numbness in extremities, weakness in extremities, sensory changes, difficulty walking, frequent falls, dizziness, vertigo, behavioral changes, Slurred speech present or seizure-like activity Psych: Denies: anxiety, depression, suicidal ideation or homicidal ideation Endo: Denies: polyuria, polydipsia, tired all the time, cold intolerance or hot flashes Alan/Lymph: Denies: easy bruising or easy bleeding Medications/Allergies Home Medications Medication Instructions Recorded Confirmed Last Taken Type carbidopa 25 mg-levodopa 100 mg 1 tab PO TID 01/18/20 04/25/24 11/26/22 History tablet digoxin 125 mcg (0.125 mg) tablet 125 mcg PO QAM 01/18/20 04/25/24 11/26/22 History diltiazem HCl 180 mg 180 mg PO QAM 01/18/20 04/25/24 11/26/22 History capsule,extended release 24 hr donepezil 10 mg tablet 10 mg PO QPM 01/18/20 04/25/24 11/26/22 History duloxetine 60 mg capsule,delayed 60 mg PO QA 01/18/20 04/25/24 11/26/22 History release metoprolol tartrate 25 mg tablet 25 mg PO BID 01/18/20 04/25/24 11/26/22 History sennosides 8.6 mg capsule (senna) 8.6 mg PO BID PRN Constipation 01/18/20 04/25/24 Unknown History tamsulosin 0.4 mg capsule 0.4 mg PO QAM 01/18/20 04/25/24 11/26/22 History memantine 10 mg tablet 10 mg PO BID 03/14/21 04/25/24 11/26/22 History cetirizine 5 mg tablet (Allergy 5 mg PO DAILY PRN Allergy Symptoms 09/04/22 04/25/24 Unknown History Relief (cetirizine)) fluticasone propionate 50 1 spray intranasal DAILY 09/04/22 04/25/24 11/26/22 History mcg/actuation nasal spray,suspension (Allergy Relief (fluticasone)) lactulose 10 gram/15 mL oral 30 g PO QPM 09/04/22 04/25/24 11/26/22 History solution loperamide 2 mg capsule 4 mg PO Q6H PRN Constipation 09/04/22 04/25/24 Unknown History mecobalamin (vitamin B12) 1,000 1,000 mcg PO QAM 1004/25/24 11/26/22 History mcg chewable tablet primidone 50 mg tablet 50 mg PO BID 09/04/22 04/25/24 11/26/22 History tetrahydrozoline 0.05 % eye drops 2 drp ophthalmic (eye) Q4H PRN Dry 09/04/22 04/25/24 Unknown History (Visine) Eye(S) menthol 4 % topical gel (Biofreeze 1 applic topical TID PRN Pain 11/26/22 04/25/24 Unknown History (menthol)) ipratropium 0.5 mg-albuterol 3 mg 3 ml inhalation Q4H PRN Shortness 03/15/23 04/25/24 Unknown History (2.5 mg base)/3 mL nebulization Of Breath soln acetaminophen 500 mg capsule 1,000 mg PO Q8H PRN Pain 09/13/23 04/25/24 Unknown History apixaban 5 mg tablet (Eliquis) 5 mg PO BID #60 tabs 04/01/24 04/25/24 Unknown Rx atorvastatin 10 mg tablet 10 mg PO DAILY 04/25/24 04/25/24 Unknown History cholecalciferol (vitamin D3) 25 50 mcg PO DAILY 04/25/24 04/25/24 Unknown History mcg (1,000 unit) tablet (Vitamin D3) pantoprazole 20 mg tablet,delayed 20 mg PO DAILY 04/25/24 04/25/24 Unknown History release sodium chloride 0.65 % nasal spray 2 spray intranasal Q4H PRN nasal 04/25/24 04/25/24 Unknown History aerosol dryness trazodone 50 mg tablet 50 mg PO BEDTIME 04/25/24 04/25/24 Unknown History aspirin 81 mg tablet,delayed 81 mg PO DAILY #30 tabs 04/28/24 Unknown Rx release atorvastatin 40 mg tablet 20 mg (1/2 x 40 mg) PO DAILY #15 04/28/24 Unknown Rx tabs gabapentin 100 mg capsule 100 mg PO BID #60 caps 04/28/24 Unknown Rx (Neurontin) oxycodone-acetaminophen 5 mg-325 1 tab PO Q6H PRN Moderate Pain #20 04/28/24 Unknown Rx mg tablet tabs Allergies Allergy/AdvReac Type Severity Reaction Status Date / Time galantamine [From Razadyne] Allergy Unknown Verified 04/25/24 06:11 Iodinated Contrast Media Allergy Unknown Verified 04/25/24 06:11 lactose Allergy Unknown Verified 04/25/24 06:11 PFSH Acute 2 PFSH: Medical History Atrial fibrillation Parkinson disease Presence of cardiac pacemaker CAD (coronary artery disease) HTN (hypertension) Benign essential tremor Surgical History S/P CABG (coronary artery bypass graft) Family History Denies family history of Diabetes Cancer Stroke Social History Smoking and tobacco/nicotine status: never used tobacco/nicotine Alcohol intake: never Substance/Drug Use: never Vitals/I&O/Wt Last Vital Signs Temp 98.2 F 05/18/24 00:30 Pulse 70 05/18/24 00:30 Resp 17 05/18/24 00:30 BP 139/79 05/18/24 00:30 Pulse Ox 96 05/18/24 00:30 O2 Del Method Nasal Cannula 05/18/24 00:30 O2 Flow Rate 2 05/17/24 22:28 Weight last 48 hrs Weight 67.727 kg Weight 68.039 kg Physical Exam 2 Narrative: General: No acute distress, AO x2-3 HEENT: PERRLA, pupils bilaterally equal and reactive, pallors not present Chest: Normal vesicular breath sounds, no added sounds, equal good air entry bilaterally CVS: S1-S2 regular, no murmurs, no tachycardia, no gallops, no rubs Abdomen: Soft, nontender, no organomegaly, bowel sounds present Neuro: No focal deficits Data 05/17/24 20:30 05/17/24 20:30 Other Labs: CT/CT head wo con* [id number] IMPRESSION: 1. No fracture or intracranial hemorrhage. 2. Right parietal scalp contusion. XR/XR hip RT 2-3V wo/w pel* [id number] IMPRESSION: Acute fracture through the base of the right femoral neck/intertrochanteric region A&P Assessment and plan (1) Closed fracture of right hip: Right hip fracture, likely related to mechanical fall. Admit to MedSurg As needed morphine for pain management Orthopedics has been consulted from the emergency room. Holding Eliquis for anticipated surgical management. Qualifiers: Encounter type: initial encounter Qualified Code(s): S72.001A - Fracture of unspecified part of neck of right femur, initial encounter for closed fracture (2) Presence of cardiac pacemaker: patient appears to report a mechanical fall. However recently has a history of tachyarrhythmia, underlying history of A-fib, will order pacemaker check to assess for any potential arrhythmia leading to the fall. Obtain twelve-lead EKG as a baseline. (3) Atrial fibrillation: Currently rate controlled Continue home doses of Cardizem and metoprolol with digoxin. Dig level normal Qualifiers: Atrial fibrillation type: persistent (not longstanding) Qualified Code(s): I48.19 - Other persistent atrial fibrillation (4) Chronic anticoagulation: Holding anticoagulation for anticipated surgical procedure (5) CAD (coronary artery disease): History of coronary artery disease status post CABG. Had recent cardiac evaluation with a stress test for elevated troponins which was eventually attributed to tachyarrhythmia. There was no signs of acutely reversible ischemia. There were areas of prior infarct in the apical and inferior lateral sanchez. Echocardiogram showed an EF of 50 to 55%, severely dilated right atrium. Patient evaluated by cardiology and troponin leak thought to be related to A-fib RVR. Medical therapy was recommended otherwise for history of CAD. Denies any chest pain today. Qualifiers: Coronary Disease-Associated Artery/Lesion type: [place] artery [place] vs. transplanted heart: [place] heart Associated angina: without angina Qualified Code(s): I25.10 - Atherosclerotic heart disease of [place] coronary artery without angina pectoris Plan DVT prophylaxis: SCDs for now. Holding anticoagulation due to anticipated surgical procedure Attestations 2 Medical Necessity Statement*: Greater than 2 midnight stay is anticipated Diagnoses Closed fracture of right hip S72.001A Encounter type: initial encounter Presence of cardiac pacemaker Z95.0 Persistent atrial fibrillation I48.19 Atrial fibrillation type: persistent (not longstanding) Chronic anticoagulation Z79.01 Coronary artery disease involving [place] coronary artery of [place] heart without angina pectoris I25.10 Coronary Disease-Associated Artery/Lesion type: [place] artery [place] vs. transplanted heart: [place] heart Associated angina: without angina
[2024-05-18] MEDS: morphine 4 mg/mL SDV 1 mL 2 MG IVP (02:04)
[2024-05-18] MEDS: ondansetron 2 mg/ML SDV 2 mL 4 MG IVP (02:07)
[2024-05-18] MEDS: dilTIAZem ER (24HR) 180 mg Capsule PO (05:35)
[2024-05-18] MEDS: digoxin 125 mcg Tablet PO (05:35)
[2024-05-18] MEDS: oxyCODONE-APAP 5-325 mg Tablet 1 TAB PO ×3 (05:42→23:56)
--- NOTE | 2024-05-18 06:28 | ECG_ITS ---
[facility] Test Date: 2024-05-18 Pat Name: Vijay Murcia Department: Room: 260 Gender: Male Professional Caster: : [id number] Requested By: Edwige Arredondo Order Number: [id number] Mian MD: Paramjit Tubbs M.D. Measurements Intervals [place] Rate: 70 P: 220 DC: 198 QRS: -72 QRSD: 182 T: 103 QT: 449 QTc: 485 Interpretive Statements ELECTRONIC ATRIAL PACEMAKER ELECTRONIC VENTRICULAR PACEMAKER ABNORMAL RHYTHM ECG Compared to ECG 04/25/2024 16:24:07 Atrial fibrillation no longer present Left-axis deviation no longer present Intraventricular conduction delay no longer present Electronically Signed On 05-18-2024 9:38:37 CDT by Paramjit Tubbs M.D. [id number]
--- NOTE | 2024-05-18 07:19 | P.CONIM_ITS ---
Providers/Reason For Consult 2 Consulting Physician/Specialty*: Lilo Marroquin MD Reason for Consult*: Right intertrochanteric hip fracture Requesting Physician: Dr. Edgard Frankel Attending Physician: Edwige Arredondo MD Primary Care Provider: Vi Murphy MD History of Present Illness History of Present Illness Vijay Murcia is a 83 year old male who has a past medical history of dementia along with hypertension, dyslipidemia, and a permanent pacemaker. The patient had a mechanical fall in the facility where he lives. He denied loss of consciousness, but he did hit his head, and he had complaints of right hip pain. Imaging studies demonstrated an intertrochanteric hip fracture. CT of the head was negative for any intracranial or brain bleeding. Additionally, stress test was performed at last admission which demonstrated no reversible ischemia. The patient was evaluated by cardiology as well. Review of Systems 2 General: Reports: 10 or more systems reviewed and unremarkable except in HPI and below Const: Denies: fever(s), chills or body aches Eyes: Denies: change in vision, blurry vision or photophobia ENMT: Reports: hoarseness; Denies: throat pain, enlarged tonsils, odynophagia or nasal congestion Card: Denies: chest pain, palpitations, irregular heart rhythm, edema, swelling of feet/ankles, lightheadedness, pre-syncope, dyspnea on exertion or orthopnea Resp: Denies: dyspnea, productive cough, non-productive cough, wheezing, stridor, pain on inspiration, change in phlegm color, hemoptysis or chest congestion GI: Denies: abdominal pain, nausea, vomiting, hematemesis, coffee ground emesis, dysphagia, heartburn, diarrhea, constipation, GI cramping, change in stool character, hematochezia or melena : Denies: flank pain, dysuria, urinary frequency, urinary urgency, urinary hesitancy or hematuria Musc: Denies: neck pain, back pain, extremity pain, joint swelling, joint warmth or deformity Neuro: Denies: headache(s), numbness in extremities, weakness in extremities, sensory changes, difficulty walking, frequent falls, dizziness, vertigo, behavioral changes, Slurred speech present or seizure-like activity Psych: Denies: anxiety, depression, suicidal ideation or homicidal ideation Endo: Denies: polyuria, polydipsia, tired all the time, cold intolerance or hot flashes Alan/Lymph: Denies: easy bruising or easy bleeding All/Imm: Denies: acute wheezing Medications/Allergies Home Medications Medication Instructions Recorded Confirmed Last Taken Type carbidopa 25 mg-levodopa 100 mg 1 tab PO TID 01/18/20 05/18/24 05/17/24 History tablet digoxin 125 mcg (0.125 mg) tablet 125 mcg PO QAM 01/18/20 05/18/24 05/17/24 History diltiazem HCl 180 mg 180 mg PO QAM 01/18/20 05/18/24 05/17/24 History capsule,extended release 24 hr donepezil 10 mg tablet 10 mg PO DAILY 01/18/20 05/18/24 05/17/24 History duloxetine 60 mg capsule,delayed 60 mg PO QAM 01/18/20 05/18/24 05/17/24 History release metoprolol tartrate 25 mg tablet 25 mg PO BID 01/18/20 05/18/24 05/17/24 History sennosides 8.6 mg capsule (senna) 8.6 mg PO BID PRN Constipation 01/18/20 05/18/24 05/17/24 History tamsulosin 0.4 mg capsule 0.4 mg PO QAM 01/18/20 05/18/24 05/17/24 History memantine 10 mg tablet 10 mg PO BID 03/14/21 05/18/24 05/17/24 History cetirizine 5 mg tablet (Allergy 5 mg PO DAILY PRN Allergy Symptoms 09/04/22 05/18/24 05/17/24 History Relief (cetirizine)) fluticasone propionate 50 1 spray intranasal DAILY 09/04/22 05/18/24 05/17/24 History mcg/actuation nasal spray,suspension (Allergy Relief (fluticasone)) lactulose 10 gram/15 mL oral 30 ml PO BEDTIME 09/04/22 05/18/24 05/16/24 History solution loperamide 2 mg capsule 4 mg PO Q6H PRN Diarrhea 09/04/22 05/18/24 Unknown History mecobalamin (vitamin B12) 1,000 1,000 mcg PO QAM 09/04/22 05/18/24 05/17/24 History mcg chewable tablet primidone 50 mg tablet 50 mg PO BID 09/04/22 05/18/24 05/17/24 History tetrahydrozoline 0.05 % eye drops 2 drp ophthalmic (eye) Q4H PRN Dry 09/04/22 05/18/24 Unknown History (Visine) Eye(S) ipratropium 0.5 mg-albuterol 3 mg 3 ml inhalation Q4H PRN Shortness 03/15/23 05/18/24 Unknown History (2.5 mg base)/3 mL nebulization Of Breath soln acetaminophen 500 mg capsule 1,000 mg PO Q8H PRN Pain 09/13/23 05/18/24 05/14/24 History apixaban 5 mg tablet (Eliquis) 5 mg PO BID #60 tabs 04/01/24 05/18/24 05/17/24 Rx atorvastatin 10 mg tablet 10 mg PO BEDTIME 04/25/24 05/18/24 05/16/24 History cholecalciferol (vitamin D3) 25 50 mcg PO DAILY 04/25/24 05/18/24 05/17/24 History mcg (1,000 unit) tablet (Vitamin D3) pantoprazole 20 mg tablet,delayed 20 mg PO DAILY 04/25/24 05/18/24 05/17/24 History release sodium chloride 0.65 % nasal spray 2 spray intranasal Q4H PRN nasal 04/25/24 05/18/24 Unknown History aerosol dryness trazodone 50 mg tablet 50 mg PO BEDTIME 04/25/24 05/18/24 05/16/24 History aspirin 81 mg tablet,delayed 81 mg PO DAILY #30 tabs 04/28/24 05/18/24 05/17/24 Rx release gabapentin 100 mg capsule 100 mg PO BID #60 caps 04/28/24 05/18/24 05/17/24 Rx (Neurontin) amino acids-protein hydrolysate 15 1 ea PO BID 05/18/24 05/18/24 05/17/24 History gram-101 kcal/30 mL oral liquid Allergies Allergy/AdvReac Type Severity Reaction Status Date / Time galantamine [From Razadyne] Allergy Unknown Verified 04/25/24 06:11 Iodinated Contrast Media Allergy Unknown Verified 04/25/24 06:11 lactose Allergy Unknown Verified 04/25/24 06:11 Current Medications Generic Name Dose Route Start Last Admin Trade Name Freq PRN Reason Stop Dose Admin Digoxin 125 mcg 05/18/24 06:00 05/18/24 05:35 Digoxin 125 Mcg Tablet PO 125 mcg QAM FLEX Administration Diltiazem HCl 180 mg 05/18/24 06:00 05/18/24 05:35 Diltiazem Er (24hr) 180 Mg Capsule PO 180 mg QAM FLEX Administration Morphine Sulfate 2 mg 05/18/24 00:43 05/18/24 02:04 Morphine 4 Mg/Ml Sdv 1 Ml IVP 2 mg Q4H PRN Administration SEVERE PAIN Ondansetron HCl 4 mg 05/18/24 00:43 05/18/24 02:07 Ondansetron 2 Mg/Ml Sdv 2 Ml IVP 4 mg Q8H PRN Administration vomiting, or N/V if npo Oxycodone/Acetaminophen 1 tab 05/18/24 00:48 05/18/24 05:42 Oxycodone-Apap 5-325 Mg Tablet PO 1 tab Q6H PRN Administration Moderate Pain PFSH Acute 2 PFSH: Medical History (Updated 05/18/24 @ 12:03 by Lilo Marroquin MD) Atrial fibrillation Parkinson disease Presence of cardiac pacemaker CAD (coronary artery disease) HTN (hypertension) Benign essential tremor Surgical History S/P CABG (coronary artery bypass graft) Family History Denies family history of Diabetes Cancer Stroke Social History Smoking and tobacco/nicotine status: never used tobacco/nicotine Alcohol intake: never Substance/Drug Use: never Dietary Habits: Current diet type/program: regular Caffeine: Yes Vitals/I&O/Wt Last Vital Signs Temp 98.2 F 05/18/24 03:54 Pulse 72 05/18/24 05:35 Resp 16 05/18/24 05:42 BP 150/70 05/18/24 03:54 Pulse Ox 97 05/18/24 03:54 O2 Del Method Nasal Cannula 05/18/24 03:54 O2 Flow Rate 2 05/17/24 22:28 05/17/24 05/18/24 05/18/24 22:59 06:59 14:59 Output Total 300 / 300 Balance -300 / -300 Weight last 48 hrs Weight 147 lb 4 oz Weight 149 lb 5 oz Weight 150 lb Physical Exam 2 Const: COMMON NORMALS: no acute distress, average body habitus and alert G ENERAL APPEARANCE: cooperative and comfortable ORIENTATION/CONSCIOUSNESS: Yes awake HENMT: COMMON NORMALS: normocephalic; head/scalp not atraumatic (Laceration on his head from fall) HEAD & SCALP: n ormocephalic; not atraumatic (Laceration on his head from fall) Eye: GENERAL EYE: appearance normal, both eyes and all related structures Chest: COMMONS NORMALS: normal inspection of the chest Resp: COMMON NORMALS: normal respiratory effort EFFORT & INSPECTION: Yes able to speak in complete sentences and Yes symmetric chest movement Extremity: RIGHT LOWER EXTREMITY: Yes hip joint (Shortening and rotation abnormality) Right hip: Yes inspection (No significant bruising.), Yes ROM (Not evaluated secondary to fracture.) and Yes neurovascular exam ( Intact distally.) Neuro: SENSORIUM/ORIENTATION: Yes alert Psych: COMMON NORMALS: mental status grossly normal APPEARANCE: Yes grossly normal ATTITUDE: Yes calm and Yes engaged ATTENTION/CONCENTRATION: Yes attention grossly intact Skin: COMMON NORMALS: no rashes or lesions noted GENERAL SKIN EXAM: no rashes or lesions noted Data 05/17/24 20:30 05/17/24 20:30 Xray Ortho: My impression: Patient's imaging studies are reviewed. He has an angulated intertrochanteric right hip fracture with no evidence of extension into the femoral shaft. A&P Assessment and plan (1) Closed intertrochanteric fracture of right hip: This 83-year-old gentleman was admitted through the emergency department last evening with complaints of multiple medical problems, but his orthopedic complaint involves a fall in which she suffered a right intertrochanteric hip fracture. The patient was admitted to the hospitalist team. Cardiology saw him based upon cardiac issues. The patient has been optimized for surgery at this time. His son was contacted and consent was obtained from the son to proceed with open reduction internal fixation. Risks and complications of a trochanteric gamma nail were discussed with the son and he agreed to the surgery. Qualifiers: Encounter type: initial encounter Fracture alignment: displaced Qualified Code(s): S72.141A - Displaced intertrochanteric fracture of right femur, initial encounter for closed fracture Consult Attestations 2 Medical Necessity Statement: Per hospitalist team Coding Level of Care Code Acute Code for Chg Fwd Diagnoses Closed displaced intertrochanteric fracture of right femur, initial encounter S72.141A Encounter type: initial encounter Fracture alignment: displaced
[2024-05-18] MEDS: carbidopa-levodopa 25-100mg Tablet 1 EACH PO ×2 (08:35→20:09)
[2024-05-18] MEDS: gabapentin 100 mg Capsule PO ×2 (08:35→17:30)
[2024-05-18] MEDS: sodium chloride 0.9% 1,000 ML 30 ML IV (12:27)
[2024-05-18] MEDS: acetaminophen 1,000 MG/100 ML PIGGYBACK 400 MG IV (12:28)
--- NOTE | 2024-05-18 13:12 | ANES.PREANE2 ---
Pre-Anesthetic Assessment Height/Weight: Height 1.83 m Weight 66.791 kg Temp Pulse Resp BP Pulse Ox O2 Del Method O2 Flow Rate 97.5 F L 71 20 H 145/70 97 Nasal Cannula 2 05/18/24 12:45 05/18/24 12:45 05/18/24 12:45 05/18/24 12:45 05/18/24 12:45 05/18/24 12:45 05/18/24 11:39 Operation Date: 05/18/24 16:00 Proposed Procedures p Trochanteric Femoral Nail(Right) - Lilo Marroquin MD Familial anesthetic complications: None Was Beta Benedict taken within 24 hours: Yes Was Clonidine taken within 24 hours: N/A Last intake: Intake Last Liquid Date 05/17/24 Last Liquid Time 17:00 Last Solid Date 05/17/24 Last Solid Time 17:00 Social No alcohol and No tobacco Exam alert, clear to auscultation bilaterally and regular rate & rhythm Airway Mallampati: Class II Dentition: other (no teeth) Pulmonary Pneumonia early april CV/HEM Atrial Fibrillation and Coronary Artery Disease Pacemaker Troponin leak early april in setting of pneumonia and episodes of tachycardia (PVST) but negative stress Neuropsych Dementia Anesthetic Plan ASA status: 4 Anesthesia: General Risk of > 500 ml blood loss (7ml/kg in children): No Medications/Allergies Home Medications Medication Instructions Recorded Confirmed Last Taken Type carbidopa 25 mg-levodopa 100 mg 1 tab PO TID 01/18/20 05/18/24 05/17/24 History tablet digoxin 125 mcg (0.125 mg) tablet 125 mcg PO QAM 01/18/20 05/18/24 05/17/24 History diltiazem HCl 180 mg 180 mg PO QAM 01/18/20 05/18/24 05/17/24 History capsule,extended release 24 hr donepezil 10 mg tablet 10 mg PO DAILY 01/18/20 05/18/24 05/17/24 History duloxetine 60 mg capsule,delayed 60 mg PO QAM 01/18/20 05/18/24 05/17/24 History release metoprolol tartrate 25 mg tablet 25 mg PO BID 01/18/20 05/18/24 05/17/24 History sennosides 8.6 mg capsule (senna) 8.6 mg PO BID PRN Constipation 01/18/20 05/18/24 05/17/24 History tamsulosin 0.4 mg capsule 0.4 mg PO QAM 01/18/20 05/18/24 05/17/24 History memantine 10 mg tablet 10 mg PO BID 03/14/21 05/18/24 05/17/24 History cetirizine 5 mg tablet (Allergy 5 mg PO DAILY PRN Allergy Symptoms 09/04/22 05/18/24 05/17/24 History Relief (cetirizine)) fluticasone propionate 50 1 spray intranasal DAILY 09/04/22 05/18/24 05/17/24 History mcg/actuation nasal spray,suspension (Allergy Relief (fluticasone)) lactulose 10 gram/15 mL oral 30 ml PO BEDTIME 09/04/22 05/18/24 05/16/24 History solution loperamide 2 mg capsule 4 mg PO Q6H PRN Diarrhea 09/04/22 05/18/24 Unknown History mecobalamin (vitamin B12) 1,000 1,000 mcg PO QAM 09/04/22 05/18/24 05/17/24 History mcg chewable tablet primidone 50 mg tablet 50 mg PO BID 09/04/22 05/18/24 05/17/24 History tetrahydrozoline 0.05 % eye drops 2 drp ophthalmic (eye) Q4H PRN Dry 09/04/22 05/18/24 Unknown History (Visine) Eye(S) ipratropium 0.5 mg-albuterol 3 mg 3 ml inhalation Q4H PRN Shortness 03/15/23 05/18/24 Unknown History (2.5 mg base)/3 mL nebulization Of Breath soln acetaminophen 500 mg capsule 1,000 mg PO Q8H PRN Pain 09/13/23 05/18/24 05/14/24 History apixaban 5 mg tablet (Eliquis) 5 mg PO BID #60 tabs 04/01/24 05/18/24 05/17/24 Rx atorvastatin 10 mg tablet 10 mg PO BEDTIME 04/25/24 05/18/24 05/16/24 History cholecalciferol (vitamin D3) 25 50 mcg PO DAILY 04/25/24 05/18/24 05/17/24 History mcg (1,000 unit) tablet (Vitamin D3) pantoprazole 20 mg tablet,delayed 20 mg PO DAILY 04/25/24 05/18/24 05/17/24 History release sodium chloride 0.65 % nasal spray 2 spray intranasal Q4H PRN nasal 04/25/24 05/18/24 Unknown History aerosol dryness trazodone 50 mg tablet 50 mg PO BEDTIME 04/25/24 05/18/24 05/16/24 History aspirin 81 mg tablet,delayed 81 mg PO DAILY #30 tabs 04/28/24 05/18/24 05/17/24 Rx release gabapentin 100 mg capsule 100 mg PO BID #60 caps 04/28/24 05/18/24 05/17/24 Rx (Neurontin) amino acids-protein hydrolysate 15 1 ea PO BID 05/18/24 05/18/24 05/17/24 History gram-101 kcal/30 mL oral liquid Allergies Allergy/AdvReac Type Severity Reaction Status Date / Time galantamine [From Razadyne] Allergy Unknown Verified 04/25/24 06:11 Iodinated Contrast Media Allergy Unknown Verified 04/25/24 06:11 lactose Allergy Unknown Verified 04/25/24 06:11 Current Medications Generic Name Dose Route Start Last Admin Trade Name Freq PRN Reason Stop Dose Admin Aspirin 81 mg 05/18/24 09:00 05/18/24 08:29 Aspirin 81 Mg Ec Tablet PO Not Given DAILY FLEX Atorvastatin Calcium 20 mg 05/18/24 09:00 05/18/24 08:29 Atorvastatin 40 Mg Tablet PO Not Given DAILY FLEX Carbidopa/Levodopa 1 each 05/18/24 09:00 05/18/24 08:35 Carbidopa-Levodopa 25-100mg Tablet PO 1 each TID FLEX Administration Digoxin 125 mcg 05/18/24 06:00 05/18/24 05:35 Digoxin 125 Mcg Tablet PO 125 mcg QAM FLEX Administration Diltiazem HCl 180 mg 05/18/24 06:00 05/18/24 05:35 Diltiazem Er (24hr) 180 Mg Capsule PO 180 mg QAM FLEX Administration Gabapentin 100 mg 05/18/24 09:00 05/18/24 08:35 Gabapentin 100 Mg Capsule PO 100 mg BID FLEX Administration Sodium Chloride 1,000 mls @ 30 mls/hr 05/18/24 12:30 05/18/24 12:27 Sodium Chloride 0.9% IV 30 mls/hr .Q24H FLEX Administration Morphine Sulfate 2 mg 05/18/24 00:43 05/18/24 02:04 Morphine 4 Mg/Ml Sdv 1 Ml IVP 2 mg Q4H PRN Administration SEVERE PAIN Ondansetron HCl 4 mg 05/18/24 00:43 05/18/24 02:07 Ondansetron 2 Mg/Ml Sdv 2 Ml IVP 4 mg Q8H PRN Administration vomiting, or N/V if npo Oxycodone/Acetaminophen 1 tab 05/18/24 00:48 05/18/24 05:42 Oxycodone-Apap 5-325 Mg Tablet PO 1 tab Q6H PRN Administration Moderate Pain Pantoprazole Sodium 40 mg 05/18/24 09:00 05/18/24 08:[address] 40 Mg Tablet PO Not Given DAILY FLEX PFSH Anesthesia Medical History (Updated 05/18/24 @ 12:03 by Lilo Marroquin MD) Atrial fibrillation Parkinson disease Presence of cardiac pacemaker CAD (coronary artery disease) HTN (hypertension) Benign essential tremor Surgical History S/P CABG (coronary artery bypass graft) Family History Denies family history of Diabetes Cancer Stroke Social History Smoking and tobacco/nicotine status: never used tobacco/nicotine Alcohol intake: never Substance/Drug Use: never Data Anesthesia 05/17/24 20:30 05/17/24 20:30 Short CBC 05/17/24 Range/Units 20:30 WBC 6.32 (3.29-11.43) 10^3/uL Hgb 11.50 (11.27-16.99) g/dL Hct 35.4 L (37-53) % MCV 106.9 H (82-101) fl Plt Count 242 (157-399) 10^3/cmm Neut % (Auto) 69.7 % Neut # (Auto) 4.41 (1.8-7.7) 10^3/uL BMP 05/17/24 20:30 Sodium 139 Potassium 4.0 Chloride 105 Carbon Dioxide 24 BUN 19 Creatinine 0.6 L Glucose 129 H Calcium 8.7 Liver Function 05/17/24 Range/Units 20:30 Total Bilirubin 0.5 (0.15-1.2) mg/dL AST 13 (0-40) U/L ALT 15 (0-41) U/L Alkaline Phosphatase 85 (40-130) U/L Albumin 3.9 (3.5-5.2) g/dL Coags 05/17/24 20:30 PT 17.60 H INR 1.39 H Cardiac Studies: Echocardiogram 04/25/24 Sestamibi Stress Test (Cardiology) 04/26/24
[2024-05-18] MEDS: fentaNYL 50 mcg/mL INJ 2mL IVP (13:31)
[2024-05-18] MEDS: ceFAZolin 2,000 MG in sodium chloride 0.9% (plus) 50 ML 100 MG IV (14:37)
[2024-05-18] MEDS: ceFAZolin 1,000 mg SDV 1000 MG IRRIGATION (15:27)
--- NOTE | 2024-05-18 16:11 | XR_ITS ---
WS: [id number] Exam: XR hip RT 2-3V wo/w pel* [id number] Date/Time of Exam: 05/18/2024 4:11 PM Reason For Exam: RT TFN; OR PICS Intraoperative AP and lateral C-arm images of the RIGHT hip are submitted. There is josue and screw fixation involving a basocervical fracture of the RIGHT hip. Alignment appears satisfactory for healing.
--- NOTE | 2024-05-18 16:13 | PM.OP ---
Operative Report Date of procedure: May 18, 2024 Pre-op diagnosis: Right intertrochanteric hip fracture Post-op diagnosis: Right intertrochanteric hip fracture Post-op findings: Angulated intertrochanteric right hip fracture Procedure done: Open reduction internal fixation right intertrochanteric hip fracture utilizing gamma nail Implants: [place] gamma 3 trochanteric nail size 11 mm x 180 mm x 125 degrees with a 10.5 mm x 105 mm lag screw and a distal locking screw size 5 mm x 40 mm. Specimens removed/disposition: None Surgeon: Lilo Marroquin MD Land Acquisition Manager: None Anesthesia: General (Intubated, ASA 4) Estimated blood loss (mL): 75 IV fluids (mL): 800 Urine output (mL): 50 Complications: None Findings: Angulated right intertrochanteric hip fracture Condition: stable Disposition: PACU (Then return to floor for postoperative rehabilitation and pain management) Brief History: Vijay Murcia is a 83 year old male who has a past medical history of dementia along with hypertension, dyslipidemia, and a permanent pacemaker. The patient had a mechanical fall in the facility where he lives. He denied loss of consciousness, but he did hit his head, and he had complaints of right hip pain. Imaging studies demonstrated an intertrochanteric hip fracture. CT of the head was negative for any intracranial or brain bleeding. Additionally, stress test was performed at last admission which demonstrated no reversible ischemia. The patient was evaluated by cardiology as well. Preoperatively, the patient was seen in the preoperative holding area. His son was called who is his power of insurance defense attorney, and consents were obtained for surgery procedure. Patient's was given the opportunity to ask questions and have them answered. Procedure: Patient is brought to the operating theater. After undergoing adequate general anesthesia with intubation, ASA 4, the patient was transferred to the fracture table, positioned on the table and fluoroscopic guidance obtained throughout the surgical procedure. Prior to the commencement of the surgical procedure, a surgical pause was performed. At the time of the surgical pause, we confirmed the site and side of surgery as well as preoperative surgical markings and appropriate and timely administration of IV antibiotics, Ancef 2 g. Availability of equipment was also confirmed. Fluoroscopy was used to confirm the fracture was appropriately reduced in both AP and lateral planes. An incision was then made slightly above the greater trochanter to allow access to the greater trochanter. An awl was used to enter the greater trochanter and a guidewire was subsequently placed. Once the guidewire was confirmed to be in appropriate position in AP and lateral planes, reaming was accomplished over this to allow for the proximal diameter of the nail. Guidewire was then removed. An 11 mm x 180 mm x 125 degree gamma 3 trochanteric nail was placed into appropriate position with positioning being confirmed in AP and lateral planes on the x-ray. It passed without difficulty. Guidewire was then passed through the jigging system into the femoral head. We wanted to be center or slightly inferior and posterior to center. Guidewire was placed into appropriate position. Once the guidewire was in appropriate position and this position was confirmed by x-ray. This was then measured and we chose a 105 mm lag screw. We reamed to allow for the lag screw to be placed. The 105 mm lag screw was then passed into the femoral head through the trochanteric nail. This was passed uneventfully and again position was confirmed in AP and lateral planes. Compression was obtained under fluoroscopic guidance. The set screw was then placed in position, tightened completely, and subsequently backed off one-quarter turn. The construct was left in position and attention was directed distally. Cannulas were again used to determine appropriate placement for the distal screw. This was placed in position without difficulty. It was measured off of the drill. The appropriate length screw was then obtained and placed in position without difficulty. Once the screw was in position, we confirmed appropriate placement of the components, and we removed the jigging system. Attention was then directed to closure. The hip was copiously irrigated with normal saline with antibiotics. Following this it was dried and closed. Tensor fascia shell was closed proximally with 0 Vicryl in an interrupted fashion. Subcutaneous tissues were closed with 2-0 Monocryl, and the skin was closed with a continuous 3-0 Monocryl subcuticular stitch. This was then covered with Dermabond, Steri-Strips, and OpSite. The patient was removed from the fracture table and returned to recovery in satisfactory condition. The patient will be discharged to the floor for postoperative rehabilitation and pain management. There were no specimens obtained. Related Problem List Diagnoses (1) Closed intertrochanteric fracture of right hip:
--- NOTE | 2024-05-18 17:00 | ANE.PACU2 ---
Inpatient post-anesthesia follow up: Airway intact: Yes Vital signs: Temperature 97.6 F Pulse Rate 94 Respiratory Rate 16 Blood Pressure 111/61 Pulse Oximetry 93 Oxygen Delivery Me thod Room Air Oxygen Flow Rate 3 Fraction of Inspir ed Oxygen Hydration adequate: Yes Nausea and vomiting: No Pain level: 1 Mental status: Baseline
--- NOTE | 2024-05-18 20:39 | PM.PN ---
Subjective Subjective: He states he is doing all right after his surgery. Denies trouble breathing or chest pain. Denies any other pain at the moment. Vitals/I&O/Wt Last Vital Signs Temp 98.4 F 05/18/24 19:52 Pulse 89 05/18/24 19:52 Resp 16 05/18/24 19:52 BP 136/60 05/18/24 19:52 Pulse Ox 90 05/18/24 19:52 O2 Del Method Room Air 05/18/24 19:52 O2 Flow Rate 3 05/18/24 16:57 05/18/24 05/18/24 05/18/24 06:59 14:59 22:59 Intake Total 150 / 150 248.5 / 398.5 Output Total 300 / 300 250 / 250 175 / 425 Balance -300 / -300 -100 / -100 73.5 / -26.5 Weight last 48 hrs Weight 66.791 kg Weight 67.727 kg Weight 68.039 kg Physical Exam Const: COMMON NORMALS: alert GENERAL APPEARANCE: cooperative ORIENTATION/CONSCIOUSNESS: Yes awake HENMT: COMMON NORMALS: oropharynx normal Neck/C-Spine: COMMON NORMALS: no JVD Resp: COMMON NORMALS: normal respiratory effort and clear to auscultation bilaterally AUSCULTATION: clear to auscultation bilaterally Cardio: COMMON NORMALS: no JVD, regular rhythm, S1 normal heart sound present, S2 normal heart sound present and No murmurs present (Cardio) RHYTHM: regular rhythm HEART SOUNDS: S1 normal heart sound present and S2 normal heart sound present GI: COMMON NORMALS: Normal to inspection, nondistended, normoactive bowel sounds present, Soft to palpation and non-tender PALPATION: Yes Soft to palpation Extremity: COMMON NORMALS: no joint enlargement and no pedal edema OTHER: Right hip wound without active bleeding, small hematoma beneath the inferior incision. Bruising around the superior incision. Neuro: COMMON NORMALS: moves all extremities SENSORIUM/ORIENTATION: Yes alert Skin: COMMON NORMALS: no rashes or lesions noted GENERAL SKIN EXAM: no rashes or lesions noted Urinary Catheter Management: [place]: Cath Placed During This Visit: no Data 05/17/24 20:30 05/17/24 20:30 A&P Assessment and plan (1) Closed fracture of right hip: Status post ORIF right hip fracture. Continue postoperative care. Doing well so far. Somewhat lower oxygen saturation 90% on room air. Monitor oxygen saturation, nasal cannula O2 as needed. RT is following. Reviewed orthopedic note, CBC, BMP. Pain control. IV morphine for breakthrough pain. Was on Eliquis prior to surgery, resume once safe per orthopedics. Weightbearing per orthopedics. Discharge planning. Qualifiers: Encounter type: initial encounter Qualified Code(s): S72.001A - Fracture of unspecified part of neck of right femur, initial encounter for closed fracture (2) Presence of cardiac pacemaker: patient appears to report a mechanical fall. However recently has a history of tachyarrhythmia, underlying history of A-fib, will order pacemaker check to assess for any potential arrhythmia leading to the fall. Reviewed EKG as a baseline. Paced rhythm on my interpretation. (3) Atrial fibrillation: Currently rate controlled Continue home doses of Cardizem and metoprolol with digoxin. Dig level normal Qualifiers: Atrial fibrillation type: persistent (not longstanding) Qualified Code(s): I48.19 - Other persistent atrial fibrillation (4) Chronic anticoagulation: Holding anticoagulation for anticipated surgical procedure. Resume Eliquis when safe per orthopedics. (5) CAD (coronary artery disease): History of coronary artery disease status post CABG. Had recent cardiac evaluation with a stress test for elevated troponins which was eventually attributed to tachyarrhythmia. There was no signs of acutely reversible ischemia. There were areas of prior infarct in the apical and inferior lateral sanchez. Echocardiogram showed an EF of 50 to 55%, severely dilated right atrium. Patient evaluated by cardiology and troponin leak thought to be related to A-fib RVR. Medical therapy was recommended otherwise for history of CAD. Denies any chest pain today. Qualifiers: Coronary Disease-Associated Artery/Lesion type: [place] artery [place] vs. transplanted heart: [place] heart Associated angina: without angina Qualified Code(s): I25.10 - Atherosclerotic heart disease of [place] coronary artery without angina pectoris Plan DVT prophylaxis: SCDs for now. Holding anticoagulation due to anticipated surgical procedure Attestations Medical Necessity Statement*: Continue admission for assessment management following right hip fracture and repair, risk of bleeding in a gentleman previously on Eliquis, with cardiac morbidities and advanced age. and High MDM includes amount and/or complexity of data reviewed/ordered [ previous or external records, resulted lab(s)/test(s), ordered lab(s)/test(s), independent test interpretation and other healthcare professional discussion] and described risk of complication, morbidity or mortality of management as documented Diagnoses Closed fracture of right hip S72.001A Encounter type: initial encounter Presence of cardiac pacemaker Z95.0 Persistent atrial fibrillation I48.19 Atrial fibrillation type: persistent (not longstanding) Chronic anticoagulation Z79.01 Coronary artery disease involving [place] coronary artery of [place] heart without angina pectoris I25.10 Coronary Disease-Associated Artery/Lesion type: [place] artery [place] vs. transplanted heart: [place] heart Associated angina: without angina
[2024-05-19] VITALS (8 sets, daily range): BP systolic 111–138; BP diastolic 61–73; PULSE 76–94; RESP 14–17; TEMP 36.4–36.8; O2SAT 92–94
[2024-05-19 05:26] LABS: Basophils % 0.1 %; Hematocrit 32.8 % (37-53); Lymphocytes # 0.8 10^3/uL (0.8-4.8); Lymphocytes % 9.6 %; Mean Corpuscular HGB Conc 32.9 g/dL (30-55); Mean Corpuscular Hemoglobin 35.2 pg (27-33); Mean Corpuscular Volume 106.8 fl (82-101); Mean Platelet Volume 9.5 fL (7.4-10.4); Monocytes % 12.3 %; Neutrophils # 6.58 10^3/uL (1.8-7.7); Neutrophils % 77.6 %; Nucleated Red Blood Cells % 0 %; Platelet Count 207 10^3/cmm (157-399); Red Blood Count 3.07 10^6/uL (3.85-5.65); Red Cell Distribution Width 13.4 % (12.1-15.1); White Blood Count 8.47 10^3/uL (3.29-11.43)
[2024-05-19 05:55] LABS: Alanine Aminotransferase < 5 U/L (0-41); Albumin Level 3.5 g/dL (3.5-5.2); Alkaline Phosphatase 65 U/L (40-130); Anion Gap 13.9 (5-19); Aspartate Amino Transferase 11 U/L (0-40); Blood Urea Nitrogen 14 mg/dL (8-23); Calcium 8.5 mg/dL (8.5-10.5); Carbon Dioxide 27 mmol/L (22-29); Chloride 103 mmol/L (98-107); Globulin 2.7 g/dL (1.3-4.6); Glucose 128 mg/dL (65-115); Osmolality Calculated 290 mOsm/kg (285-295); Potassium 4.9 mmol/L (3.5-5.1); Sodium 139 mmol/L (136-145); Total Bilirubin 0.9 mg/dL (0.15-1.2); Total Protein 6.2 g/dL (6.6-8.7)
[2024-05-19] MEDS: dilTIAZem ER (24HR) 180 mg Capsule PO (05:55)
[2024-05-19] MEDS: oxyCODONE-APAP 5-325 mg Tablet 1 TAB PO ×2 (05:55→13:11)
[2024-05-19] MEDS: digoxin 125 mcg Tablet PO (05:55)
[2024-05-19] MEDS: gabapentin 100 mg Capsule PO (08:09)
[2024-05-19] MEDS: aspirin 81 mg EC Tablet PO (08:09)
[2024-05-19] MEDS: atorvastatin 40 mg Tablet 20 MG PO (08:09)
[2024-05-19] MEDS: pantoprazole DR 40 mg Tablet PO (08:09)
[2024-05-19] MEDS: carbidopa-levodopa 25-100mg Tablet 1 EACH PO (08:09)
[2024-05-19] MEDS: morphine 4 mg/mL SDV 1 mL 2 MG IVP (08:13)
--- NOTE | 2024-05-19 09:57 | PC.SOCIAL ---
IMM Updated Updated pt on IMM. No questions voiced. Provided pt a copy. Initialed, dated, & timed a copy & placed in chart.
--- NOTE | 2024-05-19 10:56 | P.DS_ITS ---
Discharge Providers Date of Admission: 05/17/24 22:03 Date of Discharge: May 19, 2024 Attending Provider at Admission: Edwige Arredondo MD Attending Provider at Discharge: Tam Campbell Primary Care Provider: Vi Murphy MD Diagnoses at Discharge Discharge Diagnosis (1) Closed fracture of right hip: Status: Acute Qualifiers: Encounter type: initial encounter Qualified Code(s): S72.001A - Fracture of unspecified part of neck of right femur, initial encounter for closed fracture (2) Presence of cardiac pacemaker: Status: Acute (3) Atrial fibrillation: Status: Acute Qualifiers: Atrial fibrillation type: persistent (not longstanding) Qualified Code(s): I48.19 - Other persistent atrial fibrillation (4) Chronic anticoagulation: Status: Acute (5) CAD (coronary artery disease): Status: Acute Qualifiers: Associated angina: without angina Coronary Disease-Associated Artery/Lesion type: [place] artery [place] vs. transplanted heart: [place] heart Qualified Code(s): I25.10 - Atherosclerotic heart disease of [place] coronary artery without angina pectoris Reason for Visit Reason for Visit: fall Brief History: Was brought into the hospital after a mechanical fall which resulted in a fracture of his right hip. He denies any loss of consciousness. He did suffer head injury and laceration as a result of this fall been sutured in the emergency room. CT head is negative for any intracranial bleeding. Recent history is notable for admission here on 2 April 28, 2024 for pneumonia and encephalopathy as a result of infection. On this last admission patient was noted to have a significant tachyarrhythmia with elevated troponins. He improved with treatment with IV antibiotics. Stress test was performed on his last admission which demonstrated no reversible ischemia. He was evaluated by cardiology. Troponin leak. To be related to SVT and less likely to be ACS. Hospital Course Hospital Course Eliquis was held. He underwent ORIF of the right hip on 05/18. He did well postoperatively. He is awake and alert, without any chest pain or pressure, no trouble breathing. Saturating well on room air. Pain under control. Working with physical therapy. Small focal hematoma noted inferiorly under the inferior incision, resolving today. Per discussion with orthopedics Eliquis is being restarted. He is asked to follow-up with orthopedics. Please follow-up after hip fracture, please reassess blood counts, has been noted to have mild anemia of 10.8. As well as for scalp suture removal in 7 to 10 days. Physical Exam Const: COMMON NORMALS: alert GENERAL APPEARANCE: cooperative ORIENTATION/CONSCIOUSNESS: Yes awake HENMT: COMMON NORMALS: oropharynx normal Neck/C-Spine: COMMON NORMALS: no JVD Resp: COMMON NORMALS: normal respiratory effort and clear to auscultation bilaterally AUSCULTATION: clear to auscultation bilaterally Cardio: COMMON NORMALS: no JVD, regular rhythm, S1 normal heart sound present, S2 normal heart sound present and No murmurs present (Cardio) RHYTHM: regular rhythm HEART SOUNDS: S1 normal heart sound present and S2 normal heart sound present GI: COMMON NORMALS: Normal to inspection, nondistended, normoactive bowel sounds present, Soft to palpation and non-tender PALPATION: Yes Soft to palpation Extremity: COMMON NORMALS: no joint enlargement and no pedal edema OTHER: Right hip wound without active bleeding, resolved small hematoma beneath the inferior incision. Bruising around the superior incision. Neuro: COMMON NORMALS: moves all extremities SENSORIUM/ORIENTATION: Yes alert Skin: COMMON NORMALS: no rashes or lesions noted GENERAL SKIN EXAM: no rashes or lesions noted Urinary Catheter Management: [place]: Cath Placed During This Visit: yes, but has since been removed by the nurse Reason for Continuing Indwelling Catheter: Decision to DC Catheter Urinary Catheter Date of Insertion: 05/18/24 Urinary Catheter Time of Insertion: 09:36 Date Urinary Catheter Removed: 05/19/24 Time Urinary Catheter Discontinued: 06:05 Discharge Data Studies Completed and Pending Completed Studies During Hospitalization Category Date Time Status CT cervical spin wo con* [id number] Stat Cat Scan 05/17/24 19:[address] head wo con* [id number] Stat Cat Scan 05/17/24 19:45 Completed XR femur RT min 2V* [id number] Stat Exams 05/17/24 19:45 Completed XR hip RT 2-3V wo/w pel* [id number] Routine Exams 05/18/24 16:11 Completed XR hip RT 2-3V wo/w pel* [id number] Stat Exams 05/17/24 19:45 Completed Pending at discharge Category Date Time Status C-arm Fluoroscopy [id number] Routine Exams 05/18/24 11:35 Taken Radiology Impressions Cervical Spine CT 05/17/24 19:45 IMPRESSION: 1. No acute findings. 2. Curvature and degenerative changes of the cervical spine. Femur X-Ray 05/17/24 19:45 IMPRESSION: Acute fracture through the base of the femoral neck extends slightly into the intertrochanteric region Head CT 05/17/24 19:45 IMPRESSION: 1. No fracture or intracranial hemorrhage. 2. Right parietal scalp contusion. Laboratory Results WBC 8.47 10^3/uL (3.29-11.43) 05/19/24 04:59 RBC 3.07 10^6/uL (3.85-5.65) L 05/19/24 04:59 Hgb 10.80 g/dL (11.27-16.99) L 05/19/24 04:59 Hct 32.8 % (37-53) L 05/19/24 04:59 MCV 106.8 fl (82-101) H 05/19/24 04:59 MCH 35.2 pg (27-33) H 05/19/24 04:59 MCHC 32.9 g/dL (30-55) 05/19/24 04:59 RDW 13.4 % (12.1-15.1) 05/19/24 04:59 Plt Count 207 10^3/cmm (157-399) 05/19/24 04:59 MPV 9.5 fL (7.4-10.4) 05/19/24 04:59 Neut % (Auto) 77.6 % 05/19/24 04:59 Lymph % (Auto) 9.6 % 05/19/24 04:59 Whitman % (Auto) 12.3 % 05/19/24 04:59 Eos % (Auto) 0.0 % 05/19/24 04:59 Baso % (Auto) 0.1 % 05/19/24 04:59 Neut # (Auto) 6.58 10^3/uL (1.8-7.7) 05/19/24 04:59 Lymph # (Auto) 0.8 10^3/uL (0.8-4.8) 05/19/24 04:59 Whitman # (Auto) 1.0 10^3/uL (0.2-0.9) H 05/19/24 04:59 Eos # (Auto) 0.0 10^3/uL (0.0-0.8) 05/19/24 04:59 Baso # (Auto) 0.0 10^3/uL (0.0-0.1) 05/19/24 04:59 Nucleated RBC % (auto) 0 % 05/19/24 04:59 Nucleated RBCs # 0.0 /100WBC 05/19/24 04:59 PT 17.60 SECONDS (12.1-14.9) H 05/17/24 20:30 INR 1.39 (0.8-1.2) H 05/17/24 20:30 Sodium 139 mmol/L (136-145) 05/19/24 04:59 Potassium 4.9 mmol/L (3.5-5.1) 05/19/24 04:59 Chloride 103 mmol/L (98-107) 05/19/24 04:59 Carbon Dioxide 27 mmol/L (22-29) 05/19/24 04:59 Anion Gap 13.9 (5-19) 05/19/24 04:59 BUN 14 mg/dL (8-23) 05/19/24 04:59 Creatinine 0.7 mg/dL (0.7-1.2) 05/19/24 04:59 GFR Calculation Not Reportable 05/19/24 04:59 Glucose 128 mg/dL (65-115) H 05/19/24 04:59 Calculated Osmolality 290 mOsm/kg (285-295) 05/19/24 04:59 Calcium 8.5 mg/dL (8.5-10.5) 05/19/24 04:59 Total Bilirubin 0.9 mg/dL (0.15-1.2) 05/19/24 04:59 AST 11 U/L (0-40) 05/19/24 04:59 ALT < 5 U/L (0-41) 05/19/24 04:59 Alkaline Phosphatase 65 U/L (40-130) 05/19/24 04:59 Total Protein 6.2 g/dL (6.6-8.7) L 05/19/24 04:59 Albumin 3.5 g/dL (3.5-5.2) 05/19/24 04:59 Globulin 2.7 g/dL (1.3-4.6) 05/19/24 04:59 Digoxin 0.8 ng/mL (0.6-1.2) 05/17/24 20:30 Vitals Last Vital Signs Temp 98.0 F 05/19/24 07:47 Pulse 77 05/19/24 07:47 Resp 16 05/19/24 08:13 BP 131/73 05/19/24 07:47 Pulse Ox 92 05/19/24 07:47 O2 Del Method Room Air 05/19/24 09:29 O2 Flow Rate 3 05/18/24 16:57 Discharge Plan Discharge Patient Disposition: Xfer SNF Condition: Stable Prescriptions: Continued senna 8.6 mg capsule 8.6 mg PO BID PRN (Reason: Constipation) tamsulosin 0.4 mg capsule 0.4 mg PO QAM carbidopa-levodopa 25-100 mg tablet 1 tab PO TID duloxetine 60 mg capsule,delayed release(DR/EC) 60 mg PO QAM diltiazem HCl 180 mg capsule,extended release 24hr 180 mg PO QAM metoprolol tartrate 25 mg tablet 25 mg PO BID digoxin 125 mcg (0.125 mg) tablet 125 mcg PO QAM donepezil 10 mg tablet 10 mg PO DAILY primidone 50 mg tablet 50 mg PO BID memantine 10 mg tablet 10 mg PO BID cetirizine [Allergy Relief (cetirizine)] 5 mg tablet 5 mg PO DAILY PRN (Reason: Allergy Symptoms) fluticasone propionate [Allergy Relief (fluticasone)] 50 mcg/actuation spray,suspension 1 spray intranasal DAILY Rx Instructions: administer into each nostril lactulose 10 gram/15 mL solution 30 ml PO BEDTIME loperamide 2 mg capsule 4 mg PO Q6H PRN (Reason: Diarrhea) tetrahydrozoline [Visine] 0.05 % drops 2 drp ophthalmic (eye) Q4H PRN (Reason: Dry Eye(S)) mecobalamin (vitamin B12) 1,000 mcg tablet,chewable 1,000 mcg PO QAM ipratropium-albuterol 0.5 mg-3 mg(2.5 mg base)/3 mL solution for nebulization 3 ml inhalation Q4H PRN (Reason: Shortness Of Breath) acetaminophen 500 mg capsule 1,000 mg PO Q8H PRN (Reason: Pain) Eliquis 5 mg tablet 5 mg PO BID Qty: 60 5RF trazodone 50 mg tablet 50 mg PO BEDTIME atorvastatin 10 mg tablet 10 mg PO BEDTIME pantoprazole 20 mg tablet,delayed release (DR/EC) 20 mg PO DAILY sodium chloride 0.65 % Aerosol,[place] 2 spray INTRANASAL Q4H PRN (Reason: nasal dryness) cholecalciferol (vitamin D3) [Vitamin D3] 25 mcg (1,000 unit) Tablet 50 mcg PO DAILY aspirin 81 mg Tablet,Delayed Release (Dr/Ec) 81 mg PO DAILY Qty: 30 0RF gabapentin [Neurontin] 100 mg capsule 100 mg PO BID Qty: 60 0RF amino acids-protein hydrolys 15-101 gram-kcal/30 mL Liquid 1 ea PO BID Discharge Orders: Discharge Order (Routine); Ordered 05/19/24 Ordered By: Tam Campbell Referrals: [facility] [Outside] Vi Murphy MD [Primary Care Provider] - Lilo Marroquin MD [Physician] - 2 weeks Discharge Activity: Increase activity as tolerated, Limit activity as instructed, Use walker/crutches as instructed and As per PT/OT instructions Patient Instructions: Acute Wound Care (DC), Fall Prevention (GEN), ORIF of Hip Fracture (GEN), Opioid Safety, Post Anesthesia Care Activity Restrictions/Additional Instructions: Weight-bear as tolerated right lower extremity. Maintain dressings until they come off on their own. You may take them off at 2 weeks. Patient may shower but do not soak in a tub of water. Maintain fall precautions. Continue incentive spirometer. Discharge Attestations Time Spent in Discharge Care*: greater than 30 min Quality Metrics Clinical Quality Measures [ No reported AMI, CVA or VTE this stay] Coding Level of Care Code 14128 Total time (in minutes) for Discharge: 45 Diagnoses Closed fracture of right hip S72.001A Encounter type: initial encounter Presence of cardiac pacemaker Z95.0 Persistent atrial fibrillation I48.19 Atrial fibrillation type: persistent (not longstanding) Chronic anticoagulation Z79.01 Coronary artery disease involving [place] coronary artery of [place] heart without angina pectoris I25.10 Associated angina: without angina Coronary Disease-Associated Artery/Lesion type: [place] artery [place] vs. transplanted heart: [place] heart
--- NOTE | 2024-05-19 12:57 | PC.NURSE ---
Called report to Judith at [facility].
[2024-05-19] MEDS: apixaban 5 mg Tablet PO (13:11)
--- NOTE | 2024-05-19 13:40 | PM.PN ---
Subjective Subjective: Patient is sitting up in a chair. He states that he wants to get back to bed. Plans are made for his [facility] back to [facility]. Medications: Reviewed: Yes Vitals/I&O/Wt Last Vital Signs Temp 97.6 F 05/19/24 11:41 Pulse 94 05/19/24 11:41 Resp 16 05/19/24 13:11 BP 111/61 05/19/24 11:41 Pulse Ox 93 05/19/24 11:41 O2 Del Method Room Air 05/19/24 11:41 O2 Flow Rate 3 05/18/24 16:57 05/18/24 05/19/24 05/19/24 22:59 06:59 14:59 Intake Total 248.5 / 398.5 600 / 600 Output Total 175 / 425 500 / 925 Balance 73.5 / -26.5 -500 / -526.5 600 / 600 Weight last 48 hrs Weight 154 lb Weight 147 lb 4 oz Weight 149 lb 5 oz Weight 150 lb Physical Exam Const: COMMON NORMALS: no acute distress, average body habitus and alert GENERAL APPEARANCE: cooperative and comfortable ORIENTATION/CONSCIOUSNESS: Yes awake HENMT: COMMON NORMALS: normocephalic; head/scalp not atraumatic (Laceration on his head from fall) HEAD & SCALP: normocephalic; not atraumatic (Laceration on his head from fall) Eye: GENERAL EYE: appearance normal, both eyes and all related structures Chest: COMMONS NORMALS: normal inspection of the chest Resp: COMMON NORMALS: normal respiratory effort EFFORT & INSPECTION: Yes able to speak in complete sentences and Yes symmetric chest movement Extremity: RIGHT LOWER EXTREMITY: Yes hip joint (Dressings are dry and intact. There is no swelling. ) Right hip: Yes palpation (Minimal discomfort.), Yes ROM (Not evaluated.) and Yes neurovascular exam (Intact distally. No evidence of DVT) Neuro: SENSORIUM/ORIENTATION: Yes alert Psych: COMMON NORMALS: mental status grossly normal APPEARANCE: Yes grossly normal ATTITUDE: Yes calm and Yes engaged ATTENTION/CONCENTRATION: Yes attention grossly intact Skin: COMMON NORMALS: no rashes or lesions noted GENERAL SKIN EXAM: no rashes or lesions noted Urinary Catheter Management: [place]: Cath Placed During This Visit: yes, but has since been removed by the nurse Reason for Continuing Indwelling Catheter: Decision to DC Catheter Urinary Catheter Date of Insertion: 05/18/24 Urinary Catheter Time of Insertion: 09:36 Date Urinary Catheter Removed: 05/19/24 Time Urinary Catheter Discontinued: 06:05 Data 05/19/24 04:59 05/19/24 04:59 A&P Assessment and plan (1) Closed intertrochanteric fracture of right hip: This 83-year-old gentleman was admitted through the emergency department with complaints of multiple medical problems, but his orthopedic complaint involves a fall in which she suffered a right intertrochanteric hip fracture. The patient was admitted to the hospitalist team. Cardiology saw him based upon cardiac issues. Patient underwent an uneventful trochanteric nail to the right intertrochanteric hip fracture. He has worked with physical therapy and is up in a chair. Plans are made for his discharged back to [facility] today. Qualifiers: Encounter type: initial encounter Fracture alignment: displaced Qualified Code(s): S72.141A - Displaced intertrochanteric fracture of right femur, initial encounter for closed fracture Attestations Medical Necessity Statement*: Per hospitalist team. Coding Level of Care Code Acute Code for [facility] Fwd Diagnoses Closed displaced intertrochanteric fracture of right femur, initial encounter S72.141A Encounter type: initial encounter Fracture alignment: displaced
== END 2024-05-19 14:30 | disposition skilled nursing facility (03) | DRG 481 ==
LOC: ER 21:40 → MEDSURG 22:03
PROVIDERS: Specialist; Admitting Provider Student in an Organized Health Care Education/Training Program; Emergency Provider Emergency Medicine; PCP Family Medicine; Visit Provider Internal Medicine
PROC: 0QS604Z Reposition Right Upper Femur with Internal Fixation Device, Open Approach (ICD-10-PCS; CPT 27245; principal; 2024-05-18 15:30)
DX: S72.141A Displaced intertrochanteric fracture of right femur, initial encounter for closed fracture (principal); I48.19 Other persistent atrial fibrillation; W19.XXXA Unspecified fall, initial encounter; Z95.0 Presence of cardiac pacemaker; Z79.01 Long term (current) use of anticoagulants; I25.10 Atherosclerotic heart disease of native coronary artery without angina pectoris; Z95.1 Presence of aortocoronary bypass graft; D64.9 Anemia, unspecified; I10 Essential (primary) hypertension; Z79.82 Long term (current) use of aspirin; G20.A1 Parkinson's disease without dyskinesia, without mention of fluctuations; F02.80 Dementia in other diseases classified elsewhere, unspecified severity, without behavioral disturbance, psychotic disturbance, mood disturbance, and anxiety; E78.5 Hyperlipidemia, unspecified; S01.01XA Laceration without foreign body of scalp, initial encounter
CPT/HCPCS: 36415; 51702; 70450; 72125; 73502; 73552; 76000; 80053; 80162; 85025; 85610; 93005; 96374; 97162; 97165; 97530; 99285; C1713; J0131; J0690; J1100; J2270; J2405; J2704; J3010; J7030

== ENCOUNTER → 2024-05-30 13:30 | Outpatient (BNVA) | payer MEDICARE, OTHER, SELFPAY | PROVIDERS: PCP Family Medicine; Visit Provider Internal Medicine Cardiovascular Disease | DX: I25.10 Atherosclerotic heart disease of native coronary artery without angina pectoris (principal); Z95.0 Presence of cardiac pacemaker; I48.19 Other persistent atrial fibrillation; Z79.01 Long term (current) use of anticoagulants; R60.0 Localized edema | CPT/HCPCS: 99214 ==

== ENCOUNTER 2024-06-29 09:09 | Emergency (ER) | payer MEDICARE, OTHER, SELFPAY ==
[2024-06-29 09:10] VITALS: BP 128/64; PULSE 70; RESP 30; TEMP 36.7; O2SAT 95; BMI 20.3
[2024-06-29 09:25] VITALS: BP 128/64; PULSE 70; O2SAT 97
--- NOTE | 2024-06-29 09:31 | CT_ITS ---
WS: [id number] CT CERVICAL SPINE HISTORY: trauma TECHNIQUE: Contiguous 2.0 mm axial imaging performed through the entire cervical spine. Sagittal and coronal reformats also performed. All CT scans at [facility] use at least one of these dose o ptimization techniques: automated exposure control; mA and/or kV adjustment per patient size (include s targeted exams where dose is matched to clinical indication); or iterative reconstruction. DLP: 1300.88 mGy.cm COMPARISON: 05/17/2024 Increase in cervical lordosis. Advanced degenerative disc disease and narrowing throughout the cervic al spine. C5 anterolisthesis by 2 mm. The lateral masses of C1 and C2 are aligned. Facet joints are a ligned. No acute fractures. Craniocervical junction is normal. Bilateral facet hypertrophic facet joint disease. Mild foraminal narrowing and stenosis. No high-grad e central stenosis. No disc protrusions are appreciated. Lung apices are clear. CT/CT cervical spin wo con* [id number] IMPRESSION: 1. No acute cervical spine fracture. 2. Degenerative degenerative disc disease and facet arthropathy.
--- NOTE | 2024-06-29 09:32 | CT_ITS ---
WS: [id number] CT HEAD TECHNIQUE: Noncontrast CT of the head obtained from the skullbase to the vertex. CLINICAL INFORMATION: trauma COMPARISON: 05/17/2024 DLP: 1300.[address] scans at [facility] use at least one of these dose optimization techniques: automated e xposure control; mA and/or kV adjustment per patient size (includes targeted exams where dose is matc hed to clinical indication); or iterative reconstruction. FINDINGS: No evidence of intracranial hemorrhage or mass effect. Ventricular system and basal cisterns are candelario nt. Moderate small vessel changes with moderate parenchymal volume loss worse in the frontal lobes. N o extra-axial fluid collections. No evidence of mass or mass effect. Paranasal sinuses are well aerated. Slight mucosal thickening RIGHT mastoid tip. CT/CT head wo con* [id number] IMPRESSION: 1. No evidence of intracranial hemorrhage or mass effect. 2. Moderate small vessel changes with moderate parenchymal volume loss worse i n the frontal lobes. 3. Vascular calcification. 4. No acute intracranial findings.
--- NOTE | 2024-06-29 10:00 | XRR_ITS ---
PROCEDURE INFORMATION: Exam: XR Chest Exam date and time: 06/29/2024 10:13 AM Age: 83 years old Clinical indication: Injury or trauma; Fall; Shortness of breath; Blunt trauma (contusions or hematomas) TECHNIQUE: Imaging protocol: Radiologic exam of the chest. Views: 1 view. COMPARISON: CR XR chest 1V portable [id number] 04/25/2024 9:11 AM FINDINGS: Tubes, catheters and devices: A dual lead cardiac pacemaker is noted entering via a left subclavian approach. Lungs: No consolidating infiltrates are noted. Pleural spaces: Unremarkable. No pleural effusion. No pneumothorax. Heart/Mediastinum: The heart is mildly enlarged. Bones/joints: There are postsurgical changes of median sternotomy. XR/XR chest 1V portable [id number] IMPRESSION: No acute abnormality
--- NOTE | 2024-06-29 10:13 | W.ED.FALL ---
HPI - Fall General: Chief Complaint: Fall Stated Complaint: fall, head lac Time Seen by Provider: 06/29/24 09:28 History of Present Illness: 83-year-old male with a history of atrial fibrillation, Parkinson's disease, pacemaker placement, coronary artery disease and hypertension who presents to the emergency room from the snf by ambulance after having a fall. He has a bandage in place over a laceration on the back of his head. That is the only pain he complains of at this time. Apparently he appeared little bit short of breath earlier but now is breathing comfortably. No loss of consciousness. No blood thinners are listed in his records. No nausea or vomiting. No chest pain. No abdominal pain. He currently says he is not short of breath. Review of Systems Narrative: Constitutional symptoms: Negative except as documented in HPI. Skin symptoms: Negative except as documented in HPI. Eye symptoms: Negative except as documented in HPI. ENMT symptoms: Negative except as documented in HPI. Respiratory symptoms: Negative except as documented in HPI. Cardiovascular symptoms: Negative except as documented in HPI. Gastrointestinal symptoms: Negative except as documented in HPI. Genitourinary symptoms: Negative except as documented in HPI. Musculoskeletal symptoms: Negative except as documented in HPI. Neurologic symptoms: Negative except as documented in HPI. Psychiatric symptoms: Negative except as documented in HPI. Endocrine symptoms: Negative except as documented in HPI. [facility] ED PFSH: Medical History (Updated 06/29/24 @ 10:51 by Coty Luz MD) Atrial fibrillation Parkinson disease Presence of cardiac pacemaker CAD (coronary artery disease) HTN (hypertension) Benign essential tremor Surgical History S/P CABG (coronary artery bypass graft) Family History Denies family history of Diabetes Cancer Stroke Social History Smoking and tobacco/nicotine status: never used tobacco/nicotine Alcohol intake: never Substance/Drug Use: never Physical Exam Narrative: EXAM NARRATIVE: General: Alert, no acute distress. Skin: Warm, dry. Head: Normocephalic, 2 cm laceration central occipital area. Neck: Supple, trachea midline. Eye: Extraocular movements are intact. Ears, nose, mouth and throat: mucosa moist. Cardiovascular: Regular, Normal peripheral perfusion. Respiratory: Lungs are clear to auscultation, respirations are non-labored, breath sounds are equal, Symmetrical chest wall expansion. Gastrointestinal: Soft, Nontender, Non distended Musculoskeletal: Normal ROM, no deformity. Neurological: Alert and oriented, No focal neurological deficit observed. Psychiatric: Cooperative, appropriate mood & affect. Course Vital Signs: Vital signs: Vital Signs Temperature 98.1 F 06/29/24 09:10 Pulse Rate 70 06/29/24 11:05 Respiratory Rate 30 H 06/29/24 09:10 Blood Pressure 128/64 06/29/24 09:25 Pulse Oximetry 96 06/29/24 11:05 Oxygen Delivery Me thod Room Air 06/29/24 11:05 MDM - Fall Medical Decision Making Medical decision making: Differential diagnosis including but not limited to and based on the above HPI, review of systems and physical exam: With a head injury would have concern for intracranial hemorrhage or skull fractures so CT of the head was ordered. With the patient being short of breath basic lab work and chest x-ray ordered as well. Rule out heart failure or pneumonia. Orders placed to evaluate differential diagnosis based on the above differential, HPI and physical exam CT head: Moderate small vessel changes and volume loss. No acute intracranial process. no intracranial hemorrhage, no evidence of infarct. no evidence of acute fracture.This was reviewed and interpreted by myself the ER physician. CT of the cervical spine: No fracture. Good alignment. No step-offs. This was reviewed and interpreted by myself the emergency room physician. I also reviewed the radiologist report. Chest x-ray: No acute process. Mild cardiomegaly. Pacemaker in place in the left chest wall. No infiltrate. No pneumothorax. This was reviewed and interpreted by myself the ER physician. Lab Review: Laboratory results were reviewed and interpreted by myself the emergency room physician. Lab work is unremarkable. No leukocytosis. No anemia. No renal failure. Laceration repair procedure: Time: 1045 a.m. Confirmed patient, procedure, side, and site. Time out performed prior to procedure. Verbal consent was obtained by patient and/or responsible green party. Indication: Laceration Location: Central posterior occipital area. Length: 2 cm Description: Linear, subcutaneous, running horizontally Anesthesia: 2 mL 1% lidocaine with epinephrine Area prepared by sterile field with Betadine. # 3 carlos were utilized, simple, interrupted technique. Post procedure examination: Circulation, motor, sensory intact. Patient tolerated the procedure well. No complications, bleeding. Total time: 15 min. Pt advised to keep the area clean and dry, wash twice per day with antibacterial soap and water. Return to the ED or PCP in 7 days for suture removal. I reviewed the patient's medical record. Reexamination: Welch were applied to wound on the back of the head. Bleeding has stopped. Patient tolerated this fairly well. Patient remained stable. No increased work of breathing. No altered mental status. No focal motor deficits. Assessment and plan: Scalp laceration Head injury Fall - Discharged home - Discussed findings and plan with patient. Answered any questions. - All laboratory values were reviewed and interpreted personally by myself, the ER physician - All imaging was reviewed and interpreted personally by myself, the ER physician. - Evaluation and treatment of this problem were appropriate in the emergency setting Lab Data 06/29/24 10:36 06/29/24 10:36 Radiology Impressions Cervical Spine CT 06/29/24 09:31 IMPRESSION: 1. No acute cervical spine fracture. 2. Degenerative degenerative disc disease and facet arthropathy. Head CT 06/29/24 09:32 IMPRESSION: 1. No evidence of intracranial hemorrhage or mass effect. 2. Moderate small vessel changes with moderate parenchymal volume loss worse in the frontal lobes. 3. Vascular calcification. 4. No acute intracranial findings. Chest X-Ray 06/29/24 10:00 IMPRESSION: No acute abnormality Laboratory Results WBC 6.37 10^3/uL (3.29-11.43) 06/29/24 10:36 RBC 3.44 10^6/uL (3.85-5.65) L 06/29/24 10:36 Hgb 11.80 g/dL (11.27-16.99) 06/29/24 10:36 Hct 36.2 % (37-53) L 06/29/24 10:36 MCV 105.2 fl (82-101) H 06/29/24 10:36 MCH 34.3 pg (27-33) H 06/29/24 10:36 MCHC 32.6 g/dL (30-55) 06/29/24 10:36 RDW 13.4 % (12.1-15.1) 06/29/24 10:36 Plt Count 256 10^3/cmm (157-399) 06/29/24 10:36 MPV 8.6 fL (7.4-10.4) 06/29/24 10:36 Neut % (Auto) 80.1 % 06/29/24 10:36 Lymph % (Auto) 9.3 % 06/29/24 10:36 [place] % (Auto) 8.9 % 06/29/24 10:36 Eos % (Auto) 0.9 % 06/29/24 10:36 Baso % (Auto) 0.5 % 06/29/24 10:36 Neut # (Auto) 5.10 10^3/uL (1.8-7.7) 06/29/24 10:36 Lymph # (Auto) 0.6 10^3/uL (0.8-4.8) L 06/29/24 10:36 [place] # (Auto) 0.6 10^3/uL (0.2-0.9) 06/29/24 10:36 Eos # (Auto) 0.1 10^3/uL (0.0-0.8) 06/29/24 10:36 Baso # (Auto) 0.0 10^3/uL (0.0-0.1) 06/29/24 10:36 Nucleated RBC % (auto) 0 % 06/29/24 10:36 Nucleated RBCs # 0.0 /100WBC 06/29/24 10:36 Sodium 139 mmol/L (136-145) 06/29/24 10:36 Potassium 4.4 mmol/L (3.5-5.1) 06/29/24 10:36 Chloride 105 mmol/L (98-107) 06/29/24 10:36 Carbon Dioxide 24 mmol/L (22-29) 06/29/24 10:36 Anion Gap 14.4 (5-19) 06/29/24 10:36 BUN 14 mg/dL (8-23) 06/29/24 10:36 Creatinine 0.7 mg/dL (0.7-1.2) 06/29/24 10:36 GFR Calculation Not Reportable 06/29/24 10:36 Calculated Osmolality 292 mOsm/kg (285-295) 06/29/24 10:36 Calcium 8.5 mg/dL (8.5-10.5) 06/29/24 10:36 Total Bilirubin 0.5 mg/dL (0.15-1.2) 06/29/24 10:36 AST 10 U/L (0-40) 06/29/24 10:36 ALT < 5 U/L (0-41) 06/29/24 10:36 Alkaline Phosphatase 126 U/L (40-130) 06/29/24 10:36 Albumin 3.8 g/dL (3.5-5.2) 06/29/24 10:36 Globulin 2.6 g/dL (1.3-4.6) 06/29/24 10:36 All radiology interpretation(s) finalized by discharge Discharge Plan Discharge Patient Disposition: Home Clinical Impression: Fall from ground level Laceration of scalp Qualifiers: Encounter type: initial encounter Qualified Code(s): S01.01XA - Laceration without foreign body of scalp, initial encounter Head injury Qualifiers: Encounter type: initial encounter Qualified Code(s): S09.90XA - Unspecified injury of head, initial encounter Condition: Stable Prescriptions: No Action senna 8.6 mg capsule 8.6 mg PO BID PRN (Reason: Constipation) tamsulosin 0.4 mg capsule 0.4 mg PO QAM carbidopa-levodopa 25-100 mg tablet 1 tab PO TID duloxetine 60 mg capsule,delayed release(DR/EC) 60 mg PO QAM diltiazem HCl 180 mg capsule,extended release 24hr 180 mg PO QAM metoprolol tartrate 25 mg tablet 25 mg PO BID digoxin 125 mcg (0.125 mg) tablet 125 mcg PO QAM donepezil 10 mg tablet 10 mg PO DAILY primidone 50 mg tablet 50 mg PO BID memantine 10 mg tablet 10 mg PO BID cetirizine [Allergy Relief (cetirizine)] 5 mg tablet 5 mg PO DAILY fluticasone propionate [Allergy Relief (fluticasone)] 50 mcg/actuation spray,suspension 1 spray intranasal DAILY Rx Instructions: administer into each nostril lactulose 10 gram/15 mL solution 30 ml PO BEDTIME loperamide 2 mg capsule 4 mg PO Q6H PRN (Reason: Diarrhea) tetrahydrozoline [Visine] 0.05 % drops 2 drp ophthalmic (eye) Q4H PRN (Reason: Dry Eye(S)) mecobalamin (vitamin B12) 1,000 mcg tablet,chewable 1,000 mcg PO QAM ipratropium-albuterol 0.5 mg-3 mg(2.5 mg base)/3 mL solution for nebulization 3 ml inhalation Q4H PRN (Reason: Shortness Of Breath) acetaminophen 500 mg capsule 1,000 mg PO Q8H PRN (Reason: Pain) Eliquis 5 mg tablet 5 mg PO BID Qty: 60 5RF trazodone 50 mg tablet 50 mg PO BEDTIME atorvastatin 10 mg tablet 10 mg PO BEDTIME pantoprazole 20 mg tablet,delayed release (DR/EC) 20 mg PO DAILY sodium chloride 0.65 % Aerosol,[place] 2 spray INTRANASAL Q4H PRN (Reason: nasal dryness) cholecalciferol (vitamin D3) [Vitamin D3] 25 mcg (1,000 unit) Tablet 50 mcg PO DAILY aspirin 81 mg Tablet,Delayed Release (Dr/Ec) 81 mg PO DAILY Qty: 30 0RF gabapentin [Neurontin] 100 mg capsule 100 mg PO BID Qty: 60 0RF amino acids-protein hydrolys 15-101 gram-kcal/30 mL Liquid 1 ea PO BID oxycodone-acetaminophen 5-325 mg tablet 1 tab PO Q6H PRN (Reason: Pain, Moderate) Biofreeze (menthol) 4 % Gel 1 applic TOPICAL TID PRN (Reason: Pain) Discharge Orders: Discharge ED (Routine); Ordered 06/29/24 Ordered By: Coty Luz Referrals: Vi Murphy MD [Primary Care Provider] - Discharge Diet: Usual diet Discharge Activity: Increase activity as tolerated Patient Instructions: Staple Care (ED) Activity Restrictions/Additional Instructions: Keep the area clean and dry, wash twice per day with antibacterial soap and water. Return to the ED or PCP in 7 days for suture removal. Thank you for choosing [facility] for your healthcare needs today. Please realize this is an emergency room and that we are providing you with a medical screening exam and this may not be complete and all inclusive of all the testing and or work up that you may need to determine your ailment or severity of your illness. You have been screened and evaluated and felt safe for discharge. Health conditions do change or evolve sometimes and as such it is important that you follow up with your Primary Doctor to be re checked, 3-5 days is a general good time frame for follow up. You are always welcome to return to the ED for re assessment if your symptoms are worsening or you have new concerns Coding Level of Care Code ED [employer]ician for [facility]
--- NOTE | 2024-06-29 10:14 | PC.PHAR ---
MARIA ELENA VELASQUEZ RN PT HAS TAKEN AM MEDS EXCEPT ASA 81MG.
[2024-06-29 10:43] LABS: Basophils % 0.5 %; Eosinophils # 0.1 10^3/uL (0.0-0.8); Eosinophils % 0.9 %; Hematocrit 36.2 % (37-53); Lymphocytes # 0.6 10^3/uL (0.8-4.8); Lymphocytes % 9.3 %; Mean Corpuscular HGB Conc 32.6 g/dL (30-55); Mean Corpuscular Hemoglobin 34.3 pg (27-33); Mean Corpuscular Volume 105.2 fl (82-101); Mean Platelet Volume 8.6 fL (7.4-10.4); Monocytes # 0.6 10^3/uL (0.2-0.9); Monocytes % 8.9 %; Neutrophils % 80.1 %; Nucleated Red Blood Cells % 0 %; Platelet Count 256 10^3/cmm (157-399); Red Blood Count 3.44 10^6/uL (3.85-5.65); Red Cell Distribution Width 13.4 % (12.1-15.1); White Blood Count 6.37 10^3/uL (3.29-11.43)
[2024-06-29 11:02] LABS: Alanine Aminotransferase < 5 U/L (0-41); Albumin Level 3.8 g/dL (3.5-5.2); Alkaline Phosphatase 126 U/L (40-130); Anion Gap 14.4 (5-19); Aspartate Amino Transferase 10 U/L (0-40); Blood Urea Nitrogen 14 mg/dL (8-23); Calcium 8.5 mg/dL (8.5-10.5); Carbon Dioxide 24 mmol/L (22-29); Chloride 105 mmol/L (98-107); Creatinine Clr Calc Pharmacy 70.4455; Globulin 2.6 g/dL (1.3-4.6); Glucose 158 mg/dL (65-115); Osmolality Calculated 292 mOsm/kg (285-295); Potassium 4.4 mmol/L (3.5-5.1); Sodium 139 mmol/L (136-145); Total Bilirubin 0.5 mg/dL (0.15-1.2); Total Protein 6.4 g/dL (6.6-8.7)
[2024-06-29] MEDS: tetanus-dipt-pertussis 0.5 mL SDV IM (11:03)
[2024-06-29 11:05] VITALS: PULSE 70; O2SAT 96
[2024-06-29] MEDS: lidocaine-epi 1% 20 mL INJ INJECTION (11:06)
[2024-06-29 12:00] VITALS: PULSE 70; RESP 16; O2SAT 94
[2024-06-29 13:32] VITALS: BP 124/61; PULSE 70; RESP 16; TEMP 36.7; O2SAT 95
== END 2024-06-29 14:30 | disposition home or self-care (01) ==
PROVIDERS: Family Medicine; Emergency Provider Emergency Medicine; PCP Family Medicine
DX: S01.01XA Laceration without foreign body of scalp, initial encounter (principal); Z79.82 Long term (current) use of aspirin; Z79.01 Long term (current) use of anticoagulants; G20.A1 Parkinson's disease without dyskinesia, without mention of fluctuations; Z95.0 Presence of cardiac pacemaker; I25.10 Atherosclerotic heart disease of native coronary artery without angina pectoris; I10 Essential (primary) hypertension; Z95.1 Presence of aortocoronary bypass graft; W18.30XA Fall on same level, unspecified, initial encounter; Y92.129 Unspecified place in nursing home as the place of occurrence of the external cause; Z23 Encounter for immunization
CPT/HCPCS: 12001; 36415; 70450; 71045; 72125; 80053; 85025; 90471; 90715; 99284

== ENCOUNTER 2024-09-16 15:30 | Emergency (ER) | payer MEDICARE, OTHER, SELFPAY ==
[2024-09-16 15:31] VITALS: BP 117/61; PULSE 70; RESP 17; TEMP 37.1; O2SAT 94; BMI 20.3
--- NOTE | 2024-09-16 15:40 | XRR_ITS ---
PROCEDURE INFORMATION: Exam: XR Left Hip Exam date and time: 09/16/2024 3:47 PM Age: 83 years old Clinical indication: Injury or trauma; Fall; Blunt trauma (contusions or hematomas); Left; Hip TECHNIQUE: Imaging protocol: Radiologic exam of the left hip. Views: 2 or 3 views hip with pelvis when performed. COMPARISON: CT abdomen pelvis wo con [id number] 09/30/2022 6:19 PM FINDINGS: Bones/joints: There is healing fracture of the proximal right femur status post internal fixation with metallic hardware. Bones are moderately osteopenic. Degenerative changes are seen in the lower lumbar spine at the L5-S1 level. No acute fracture is identified. Soft tissues: Unremarkable. XR/XR hip LT 2-3V wo/w pel* [id number] IMPRESSION: No acute fracture is identified.
--- NOTE | 2024-09-16 15:45 | W.ED.FALL ---
HPI - Fall General: Chief Complaint: Fall Stated Complaint: left hip pain s/p fall Time Seen by Provider: 09/16/24 15:39 History of Present Illness: 83-year-old male presents emergency room via EMS from assisted living he fell at assisted living is complaining of some left hip pain. He is able to move the left hip independently active range of motion without pain normal and ambulates independently. He denies any other injuries in the fall. Associated symptoms-after fall: Denies abdominal pain, chest pain or neck pain Related Data Home Medications Medication Instructions Recorded Confirmed carbidopa 25 mg-levodopa 100 mg 1 tab PO TID 01/18/20 06/29/24 tablet digoxin 125 mcg (0.125 mg) tablet 125 mcg PO QAM 01/18/20 06/29/24 diltiazem HCl 180 mg 180 mg PO QAM 01/18/20 06/29/24 capsule,extended release 24 hr donepezil 10 mg tablet 10 mg PO DAILY 01/18/20 06/29/24 duloxetine 60 mg capsule,delayed 60 mg PO QAM 01/18/20 06/29/24 release metoprolol tartrate 25 mg tablet 25 mg PO BID 01/18/20 06/29/24 sennosides 8.6 mg capsule (senna) 8.6 mg PO BID PRN Constipation 01/18/20 06/29/24 tamsulosin 0.4 mg capsule 0.4 mg PO QAM 01/18/20 06/29/24 memantine 10 mg tablet 10 mg PO BID 03/14/21 06/29/24 cetirizine 5 mg tablet (Allergy 5 mg PO DAILY Allergy Symptoms 09/04/22 06/29/24 Relief (cetirizine)) fluticasone propionate 50 1 spray intranasal DAILY 09/04/22 06/29/24 mcg/actuation nasal spray,suspension (Allergy Relief (fluticasone)) lactulose 10 gram/15 mL oral 30 ml PO BEDTIME 09/04/22 06/29/24 solution loperamide 2 mg capsule 4 mg PO Q6H PRN Diarrhea 09/04/22 06/29/24 mecobalamin (vitamin B12) 1,000 1,000 mcg PO QAM 09/04/22 06/29/24 mcg chewable tablet primidone 50 mg tablet 50 mg PO BID 09/04/22 06/29/24 tetrahydrozoline 0.05 % eye drops 2 drp ophthalmic (eye) Q4H PRN Dry 09/04/22 06/29/24 (Visine) Eye(S) ipratropium 0.5 mg-albuterol 3 mg 3 ml inhalation Q4H PRN Shortness 03/15/23 06/29/24 (2.5 mg base)/3 mL nebulization Of Breath soln acetaminophen 500 mg capsule 1,000 mg PO Q8H PRN Pain 09/13/23 06/29/24 atorvastatin 10 mg tablet 10 mg PO BEDTIME 04/25/24 06/29/24 cholecalciferol (vitamin D3) 25 50 mcg PO DAILY 04/25/24 06/29/24 mcg (1,000 unit) tablet (Vitamin D3) pantoprazole 20 mg tablet,delayed 20 mg PO DAILY 04/25/24 06/29/24 release sodium chloride 0.65 % nasal spray 2 spray intranasal Q4H PRN nasal 04/25/24 06/29/24 aerosol dryness trazodone 50 mg tablet 50 mg PO BEDTIME 04/25/24 06/29/24 amino acids-protein hydrolysate 15 1 ea PO BID 05/18/24 06/29/24 gram-101 kcal/30 mL oral liquid menthol 4 % topical gel (Biofreeze 1 applic topical TID PRN Pain 06/29/24 06/29/24 (menthol)) oxycodone-acetaminophen 5 mg-325 1 tab PO Q6H PRN Pain, Moderate 06/29/24 06/29/24 mg tablet Previous Rx's Medication Instructions Recorded apixaban 5 mg tablet (Eliquis) 5 mg PO BID #60 tabs 04/01/24 aspirin 81 mg tablet,delayed 81 mg PO DAILY #30 tabs 04/28/24 release gabapentin 100 mg capsule 100 mg PO BID #60 caps 04/28/24 (Neurontin) Allergies Allergy/AdvReac Type Severity Reaction Status Date / Time galantamine [From [facility]ady[place]] Allergy Unknown Verified 05/30/24 14:05 Iodinated Contrast Media Allergy Unknown Verified 05/30/24 14:05 Review of Systems Const: Denies: fever(s) or chills Card: Denies: chest pain Resp: Denies: dyspnea GI: Denies: abdominal pain : Denies: dysuria, urinary frequency or urinary urgency Musc: Denies: neck pain or back pain Skin/Breast: Denies: rash PFSH ED PFSH: Medical History (Updated 09/16/24 @ 16:06 by Hayden Gale DO) Atrial fibrillation Parkinson disease Presence of cardiac pacemaker CAD (coronary artery disease) HTN (hypertension) Benign essential tremor Surgical History S/P CABG (coronary artery bypass graft) Family History Denies family history of Diabetes Cancer Stroke Social History Smoking and tobacco/nicotine status: never used tobacco/nicotine Alcohol intake: never Substance/Drug Use: never Physical Exam Const: GENERAL APPEARANCE: cooperative ORIENTATION/CONSCIOUSNESS: Yes awake, Yes oriented to person, Yes oriented to place and Yes oriented to time HENMT: COMMON NORMALS: normocephalic, atraumatic and hearing grossly normal bilaterally HEAD & SCALP: normocephalic and atraumatic Resp: COMMON NORMALS: normal respiratory effort, No retractions, No use of accessory muscles and clear to auscultation bilaterally AUSCULTATION: clear to auscultation bilaterally Cardio: COMMON NORMALS: regular rate, regular rhythm and No murmurs present (Cardio) RATE: regular rate RHYTHM: regular rhythm GI: COMMON NORMALS: Soft to palpation and No hepatosplenomegaly present AUSCULTATION: Yes normoactive bowel sounds PALPATION: Yes Soft to palpation, No Tenderness to palpation present (GI), No Guarding due to palpation present (GI) and Yes No hepatosplenomegaly present Extremity: COMMON NORMALS: normal to inspection, capillary refill normal, no clubbing, cyanosis or edema, no calf tenderness and no pedal edema Neuro: SENSORIUM/ORIENTATION: Yes oriented to person, Yes oriented to place and Yes oriented to time Skin: COMMON NORMALS: no rashes or lesions noted GENERAL SKIN EXAM: no rashes or lesions noted Course Vital Signs: Vital signs: Vital Signs Temperature 98.7 F 09/16/24 15:31 Pulse Rate 73 09/16/24 18:11 Respiratory Rate 17 09/16/24 15:31 Blood Pressure 121/67 09/16/24 18:11 Pulse Oximetry 95 09/16/24 18:11 Oxygen Delivery Me thod Nasal Cannula 09/16/24 15:31 Oxygen Flow Rate 2 09/16/24 15:31 MDM - Fall Medical Decision Making Patient is awake and alert and he has some pain over the greater trochanter on the left hip but he is able to spontaneously move flex and extend. X-ray does not show any acute fracture. Patient wishes to go home we will discharge patient home follow-up as needed Medical Records I reviewed the patient's medical records. Lab Data I reviewed the patient's lab results. Radiology Impressions Hip/Pelvis X-Ray 09/16/24 15:40 IMPRESSION: No acute fracture is identified. All radiology interpretation(s) finalized by discharge Discharge Plan Discharge Patient Disposition: Home Clinical Impression: Fall from ground level, Hip pain, right Condition: Stable Prescriptions: No Action senna 8.6 mg capsule 8.6 mg PO BID PRN (Reason: Constipation) tamsulosin 0.4 mg capsule 0.4 mg PO QAM carbidopa-levodopa 25-100 mg tablet 1 tab PO TID duloxetine 60 mg capsule,delayed release(DR/EC) 60 mg PO QAM diltiazem HCl 180 mg capsule,extended release 24hr 180 mg PO QAM metoprolol tartrate 25 mg tablet 25 mg PO BID digoxin 125 mcg (0.125 mg) tablet 125 mcg PO QAM donepezil 10 mg tablet 10 mg PO DAILY primidone 50 mg tablet 50 mg PO BID memantine 10 mg tablet 10 mg PO BID cetirizine [Allergy Relief (cetirizine)] 5 mg tablet 5 mg PO DAILY fluticasone propionate [Allergy Relief (fluticasone)] 50 mcg/actuation spray,suspension 1 spray intranasal DAILY Rx Instructions: administer into each nostril lactulose 10 gram/15 mL solution 30 ml PO BEDTIME loperamide 2 mg capsule 4 mg PO Q6H PRN (Reason: Diarrhea) tetrahydrozoline [Visine] 0.05 % drops 2 drp ophthalmic (eye) Q4H PRN (Reason: Dry Eye(S)) mecobalamin (vitamin B12) 1,000 mcg tablet,chewable 1,000 mcg PO QAM ipratropium-albuterol 0.5 mg-3 mg(2.5 mg base)/3 mL solution for nebulization 3 ml inhalation Q4H PRN (Reason: Shortness Of Breath) acetaminophen 500 mg capsule 1,000 mg PO Q8H PRN (Reason: Pain) Eliquis 5 mg tablet 5 mg PO BID Qty: 60 5RF trazodone 50 mg tablet 50 mg PO BEDTIME atorvastatin 10 mg tablet 10 mg PO BEDTIME pantoprazole 20 mg tablet,delayed release (DR/EC) 20 mg PO DAILY sodium chloride 0.65 % Aerosol,[place] 2 spray INTRANASAL Q4H PRN (Reason: nasal dryness) cholecalciferol (vitamin D3) [Vitamin D3] 25 mcg (1,000 unit) Tablet 50 mcg PO DAILY aspirin 81 mg Tablet,Delayed Release (Dr/Ec) 81 mg PO DAILY Qty: 30 0RF gabapentin [Neurontin] 100 mg capsule 100 mg PO BID Qty: 60 0RF amino acids-protein hydrolys 15-101 gram-kcal/30 mL Liquid 1 ea PO BID oxycodone-acetaminophen 5-325 mg tablet 1 tab PO Q6H PRN (Reason: Pain, Moderate) Biofreeze (menthol) 4 % Gel 1 applic TOPICAL TID PRN (Reason: Pain) Discharge Orders: Discharge ED (Routine); Ordered 09/16/24 Ordered By: Hayden Gale Referrals: Vi Murphy MD [Primary Care Provider] - Discharge Diet: Usual diet Discharge Activity: Resume usual activity Patient Instructions: Opioid Safety, Pain Management Activity Restrictions/Additional Instructions: Thank you for choosing [facility] for your healthcare needs today. It is very important that you follow up as instructed or that you return to the Emergency Department should you have concerns or if your condition changes or worsens in any way. You are seen today after a fall x-ray of your hip was negative for fracture. Coding Level of Care Code ED [employer] Worker for [facility]
[2024-09-16 16:15] VITALS: BP 117/61; O2SAT 93
[2024-09-16 17:15] VITALS: BP 117/61
[2024-09-16 18:11] VITALS: BP 121/67; PULSE 73; O2SAT 95
== END 2024-09-16 18:13 | disposition home or self-care (01) ==
PROVIDERS: Emergency Provider Family Medicine; PCP Family Medicine
DX: M25.552 Pain in left hip (principal); W01.0XXA Fall on same level from slipping, tripping and stumbling without subsequent striking against object, initial encounter
CPT/HCPCS: 73502; 99283

== ENCOUNTER → 2024-11-30 14:13 | Outpatient (BNVA) | payer MEDICARE, OTHER, SELFPAY | PROVIDERS: PCP Family Medicine; Visit Provider Internal Medicine Cardiovascular Disease | DX: I25.10 Atherosclerotic heart disease of native coronary artery without angina pectoris (principal); Z95.0 Presence of cardiac pacemaker; I48.19 Other persistent atrial fibrillation; R60.0 Localized edema; I10 Essential (primary) hypertension | CPT/HCPCS: 99214 ==

== ENCOUNTER → 2025-02-07 10:18 | Outpatient (BNVA) | payer MEDICARE, OTHER, SELFPAY | PROVIDERS: PCP Family Medicine; Visit Provider Internal Medicine Cardiovascular Disease | DX: Z45.018 Encounter for adjustment and management of other part of cardiac pacemaker (principal) | CPT/HCPCS: 93296 ==

== ENCOUNTER → 2025-06-01 09:34 | Outpatient (BNVA) | payer MEDICARE, OTHER, SELFPAY | PROVIDERS: PCP Electrodiagnostic Medicine; Visit Provider Nurse Practitioner Family | DX: I25.10 Atherosclerotic heart disease of native coronary artery without angina pectoris (principal); I10 Essential (primary) hypertension; I48.91 Unspecified atrial fibrillation; Z79.01 Long term (current) use of anticoagulants; Z79.82 Long term (current) use of aspirin; R60.0 Localized edema; Z95.0 Presence of cardiac pacemaker; Z95.1 Presence of aortocoronary bypass graft | CPT/HCPCS: 99213 ==

== ENCOUNTER → 2025-09-26 13:43 | Outpatient (BNVA) | payer MEDICARE, OTHER, SELFPAY | PROVIDERS: PCP Electrodiagnostic Medicine; Visit Provider Internal Medicine Cardiovascular Disease | DX: Z45.018 Encounter for adjustment and management of other part of cardiac pacemaker (principal) | CPT/HCPCS: 93296 ==